=== PATIENT | female | born 1970 | race Caucasian/White ===

== ENCOUNTER 2020-02-14 08:23 | Outpatient (REF) | payer OTHER, SELFPAY ==
--- NOTE | 2020-02-14 | MM_ITS ---
EXAMINATION: MM SCREENING DIGITAL BREAST TOMOSYNTHESIS, BILATERAL CLINICAL INFORMATION: Screening. Asymptomatic. The lifetime risk of breast cancer based on the Tyrer-Cuzick Model is 11%. COMPARISON: Mammography: 12/13/2017, 12/06/2016 TECHNIQUE: Digital breast tomosynthesis is performed in both the craniocaudal and mediolateral oblique views along with computer-aided detection (CAD). Synthesized 2D images are generated from the tomosynthesis. FINDINGS: There are scattered areas of fibroglandular density (ACR BI-RADS breast composition Category b). There are no significant masses, abnormal calcifications, or other abnormalities. There is no interval mass or architectural abnormality or developing density. The axilla and skin contours are unremarkable. No abnormal calcifications on the right. The left breast has some new calcifications mid upper outer quadrant mid depth. Patient will be recalled to further characterize. IMPRESSION: 1. Left: New calcifications mid upper outer left breast. 2. Right: No mammographic evidence of malignancy. ASSESSMENT: BI-RADS 0: Incomplete - Need Additional Imaging Evaluation RECOMMENDATION: 1. Additional views of the left breast (magnification CC, magnification ML). 2. Radiology department staff will contact the patient for additional imaging. This patient's information was entered into a reminder system with a target due date for their next mammogram.
== END 2020-02-14 08:24 | disposition home or self-care (01) ==
LOC: HO.MAMMO 08:23
PROVIDERS: PCP Internal Medicine Medical Oncology; Visit Provider Internal Medicine Medical Oncology
DX: Z12.31 Encounter for screening mammogram for malignant neoplasm of breast (principal)
CPT/HCPCS: 77063; 77067; 78014

== ENCOUNTER 2020-02-24 12:53 | Outpatient (REF) | payer OTHER, SELFPAY ==
--- NOTE | 2020-02-24 | MM_ITS ---
EXAMINATION: MM DIAGNOSTIC DIGITAL MAMMOGRAPHY, LEFT CLINICAL INFORMATION: Recall from screening for new calcifications mid upper left breast. COMPARISON: Mammography: 02/14/2020, 12/13/2017 TECHNIQUE: Digital mammography is performed in the following views: Magnification CC, magnification ML, magnification MLO. FINDINGS: There are scattered areas of fibroglandular density (ACR BI-RADS breast composition Category b). The magnification views show new loosely grouped calcifications 12:30 o'clock left breast mid depth representing change from prior mammography 2018. The calcifications are mildly heterogeneous, slightly vary in size. There are other benign tightly grouped hypoattenuation calcifications close to this area which are stable from prior imaging. Results are discussed with the patient at time of visit. The calcifications are at the threshold for consideration of stereotactic sampling. Management options discussed with patient. Patient prefers stereotactic sampling. IMPRESSION: Mildly heterogeneous calcifications mid 12:30 o'clock left breast new from prior imaging 2018. ASSESSMENT: BI-RADS 4: Suspicious (subcategory 4A: Low suspicion for malignancy) RECOMMENDATION: Stereotactic sampling left breast calcifications. This patient's information was entered into a reminder system with a target due date for their next mammogram.
--- NOTE | 2020-02-27 09:06 | MM_ITS ---
EXAMINATION: STEREOTACTIC TOMOSYNTHESIS-GUIDED VACUUM-ASSISTED BREAST BIOPSY, LEFT SPECIMEN RADIOGRAPH, STEREOTACTIC POST PROCEDURE DIGITAL MAMMOGRAM, LEFT CLINICAL INFORMATION: Indeterminate grouping of calcifications superior aspect of the left breast. COMPARISON: February 24, 2020 and studies dating back to February 08, 2010. TECHNIQUE/PROCEDURE: Informed consent was obtained from the patient after discussion of the benefits, risks, and alternatives to biopsy today. Patient appeared to understand. Gave opportunity for questions. Patient signed consent form. BIOPSY TABLE: [email or web address] Affirm Prone Biopsy System. LESION: Calcifications. LOCAL ANESTHESIA: 10 mL 1% lidocaine; 20 mL 1% lidocaine with epinephrine. DERMATOTOMY: Single skin fernando dermatotomy performed. NEEDLE: Chromatin Eviva 9-gauge vacuum assisted core biopsy device. APPROACH: Superior. CORES: 20. CLIP: Top Hat. SPECIMEN RADIOGRAPH: Specimen radiograph is taken in separate room using digital mammography. The index calcifications are in the excised cores. POST PROCEDURE UNILATERAL DIGITAL MAMMOGRAM: The post biopsy mammogram is performed in separate room using separate digital mammography equipment from the biopsy procedure. 2 views are obtained. There are scattered areas of fibroglandular density (breast composition category: b). The clip marker is in position. The calcifications are markedly decreased at the biopsy site. There is a small hematoma. The patient tolerated the procedure well. No immediate complications. Home instructions reviewed with the patient. Final pathology results are pending. IMPRESSION: 1. Digital tomosynthesis-guided core biopsy left breast with clip placement. 2. Specimen radiograph taken and post procedure mammogram. There is satisfactory positioning of the biopsy clip. 3. Final pathology results pending. An addendum report will be issued.
== END 2020-02-24 12:54 | disposition home or self-care (01) ==
LOC: HO.MAMMO 12:53
PROVIDERS: Visit Provider Internal Medicine Medical Oncology
DX: R92.1 Mammographic calcification found on diagnostic imaging of breast (principal)
CPT/HCPCS: 77065

== ENCOUNTER 2020-02-27 09:01 | Outpatient (REF) | payer SELFPAY | END 2020-02-27 09:02 | disposition home or self-care (01) | LOC: HO.MAMMO 09:01 | PROVIDERS: PCP Internal Medicine Medical Oncology; Visit Provider Surgery | DX: R92.1 Mammographic calcification found on diagnostic imaging of breast (principal); Z90.710 Acquired absence of both cervix and uterus | CPT/HCPCS: 19283; 88305; 88341; 88342; 88360; 99203; A4648 ==

== ENCOUNTER → 2020-03-03 10:37 | Outpatient (BNVA) | payer OTHER, SELFPAY | PROVIDERS: PCP Internal Medicine Medical Oncology; Visit Provider Surgery | DX: C50.912 Malignant neoplasm of unspecified site of left female breast (principal); E03.9 Hypothyroidism, unspecified; Z90.710 Acquired absence of both cervix and uterus; Z13.71 Encounter for nonprocreative screening for genetic disease carrier status | CPT/HCPCS: 99213 ==

== ENCOUNTER 2020-03-18 06:58 | Day surgery (SDC) | payer OTHER, SELFPAY ==
[2020-03-12 18:10] VITALS: BMI 32.0
--- NOTE | 2020-03-17 08:36 | HO.ANESPROP2 ---
Documented by User: Emperatriz Low 03/17/20 08:37 HPI - Anesthesia Eval Consult details Narrative: 50yo F for Sentinal Node Biopsy, Needle Loc PMFSH Past Medical History Medical History Hypothyroid Invasive ductal carcinoma of left breast Family History Family History Sister History of ovarian cancer Surgical History Surgical History History of hysterectomy (~2017) Social History Social History Alcohol intake: current Alcohol intake frequency: holidays/special occasions only Smoking Status: Never smoker Second Hand Smoke Exposure: No Use of substances other than those prescribed or required for medical reasons: No Advance Directives: No Advance Directives Information Provided: No Advance Directives on File: No Recently lost weight without trying: No Meds Allergies Allergy/AdvReac Type Severity Reaction Status Date / Time No Known Allergies Allergy Verified 03/12/20 18:09 Home Medications Medication Instructions Recorded Confirmed Type levothyroxine 112 mcg tablet 112 mcg PO DAILY 02/27/20 03/12/20 History Exam Exam Date and Time: March 17, 2020 0836 Height,Weight and Vital Signs: Height 5 ft 2 in Weight 79.379 kg Assessment and Plan Assessment Anesthesia Assessment: Chart Reviewed Documented by User: Francie Oliva 03/18/20 10:58 PMFSH Past Medical History Medical History Hypothyroid Invasive ductal carcinoma of left breast Family History Family History Sister History of ovarian cancer Surgical History Surgical History History of hysterectomy (~2017) Social History Social History (Reviewed 03/18/20 @ 10:30 by Francie Waldrop Alcohol intake: current Alcohol intake frequency: holidays/special occasions only Smoking Status: Never smoker Second Hand Smoke Exposure: No Use of substances other than those prescribed or required for medical reasons: No Advance Directives: No Advance Directives Information Provided: No Advance Directives on File: No Recently lost weight without trying: No Meds Allergies Allergy/AdvReac Type Severity Reaction Status Date / Time No Known Allergies Allergy Verified 03/12/20 18:09 Home Medications Medication Instructions Recorded Confirmed Type levothyroxine 112 mcg tablet 112 mcg PO DAILY 02/27/20 03/12/20 History Exam Airway Mallampati Class: II TM Dist: >3cm Neck ROM: Full Assessment and Plan Assessment Anesthesia Assessment: Anesthesia Plan Discussed and Chart Reviewed Final Anesthetic Review NPO: Yes ASA Class: II Final Preanesthetic Review: No Changes in Pt Med Stat, Meds/Allgs Chart Reviewed, Consent Obtained/Reviewed and Anes Risks/Benef Reviewed Patient Risk: Low Procedure Risk: Low Assessment/Block/Sedation in SS: Assess/Block/Sedation-SS Anesthetic Plan Anesthetic Plan: GA Disposition: Standard PACU
[2020-03-18] VITALS (12 sets, daily range): BP systolic 112–145; BP diastolic 63–97; PULSE 68–84; RESP 16–18; TEMP 36.6–36.8; O2SAT 92–100
--- NOTE | 2020-03-18 | NM_ITS ---
EXAMINATION: NM LYMPHOSCINTIGRAPHY CLINICAL INFORMATION: Left breast cancer. COMPARISON: None. TECHNIQUE: Following explaining lymphoscintigraphy procedure, benefits and risk a written consent was obtained by Dr. Krueger. 4% lidocaine jelly cream was applied. The area around the left breast areola was cleaned in aseptic manner. 0.5 mCi of technetium 99m lymphoseek was divided in 4 equal doses and injected in 4 quadrants around the left breast areola. Imaging was obtained approximately 30 minutes later. Patient tolerated procedure extremely well. FINDINGS: There is isotope activity seen around the left breast areola. There are 2 focal areas of activity seen in the left axilla. NM/NM sentinel node w imaging IMPRESSION: On left breast lymphoscintigraphy, there are 2 solitary lymph node uptakes seen in the left axilla.
--- NOTE | 2020-03-18 07:13 | MM_ITS ---
EXAMINATION: MM MAMMOGRAM GUIDED NEEDLE LOCALIZATION BREAST, LEFT MM NEEDLE LOCALIZATION SPECIMEN FROM THE LEFT BREAST CLINICAL INFORMATION: Invasive ductal carcinoma COMPARISON: February 27, 2020 and February 14, 2020 TECHNIQUE NEEDLE LOC: Proper informed consent is obtained from the patient after discussion of the procedure, potential risks and complications, and alternatives including declining the procedure today. Patient was given an opportunity for questions. The patient appeared to understand. The patient consented to the procedure and signed the consent form. GUIDANCE: Digital mammography. APPROACH: Superior. TARGET: Calcification and T-shaped clip. ANESTHESIA: lidocaine 1%: 10 mL. LOCALIZATION MARKER: Mittie MammaLok. The skin is prepped and local anesthesia administered. The needle is positioned and position assessed with mammography. The wire is hooked into position. [place] needle protector placed. The patient tolerated the procedure well and had no immediate complication. Following the procedure, 4% lidocaine ointment was administered to the left areola and covered with Tegaderm in anticipation of nuclear lymphoscintigraphy injection for sentinel lymph node mapping. TECHNIQUE SPECIMEN RADIOGRAPH: Imaging of the excised specimen is performed using digital mammography in 1 view. FINDINGS SPECIMEN RADIOGRAPH: The specimen shows the needle and hookwire are delivered intact. The biopsy clip marker and index calcifications are identified in the specimen. There also appears to be a spiculated lesion associated with the calcifications included within the specimen. Results were called to Dr. Chad Salas in the operating room at the time of imaging. MM/MM needle loc LT IMPRESSION: 1. Status post left breast needle localization with wire hooked into position. 2. Post operative specimen radiograph obtained.
[2020-03-18] MEDS: Lactated Ringers 1,000 ML 100 ML IVCONT (07:36)
[2020-03-18] MEDS: ceFAZolin Sodium/Dextrose,Iso 2 GM/50 ML PIGGYBACK IV (07:36)
[2020-03-18] MEDS: Lidocaine 4 % Cream KIT 1 APPL TOPICAL (07:37)
--- NOTE | 2020-03-18 09:03 | MHC.SHP ---
Pre-Procedural Eval Section A The patient is an INPATIENT: No Changes since office visit: Yes Patient answered all questions; No Cold of Flu in the past 2 weeks, No New Medical Problems and No Changes in Medication The History & Physical has been completed within 30 days and I have reviewed it.: Yes Section B Chief Complaint: Invasive Ductal Carcinoma of left breast Allergies: Allergies Allergy/AdvReac Type Severity Reaction Status Date / Time No Known Allergies Allergy Verified 03/12/20 18:09 Plan Diagnosis/Plan: Unchanged Patient has been examined and remains a candidate for the planned procedure
--- NOTE | 2020-03-18 11:00 | P.CONAN_ITS ---
FORMERLY [facility] Past Medical History Medical History Hypothyroid Invasive ductal carcinoma of left breast Family History Family History Sister History of ovarian cancer Surgical History Surgical History History of hysterectomy (~2018) Social History Social History Alcohol intake: current Alcohol intake frequency: holidays/special occasions only Smoking Status: Never smoker Second Hand Smoke Exposure: No Use of substances other than those prescribed or required for medical reasons: No Advance Directives: No Advance Directives Information Provided: No Advance Directives on File: No Recently lost weight without trying: No Meds Allergies Allergy/AdvReac Type Severity Reaction Status Date / Time No Known Allergies Allergy Verified 03/12/20 18:09 Home Medications Medication Instructions Recorded Confirmed Type levothyroxine 112 mcg tablet 112 mcg PO DAILY 02/27/20 03/12/20 History Exam Exam Date and Time: March 18, 2020 1100 Height,Weight and Vital Signs: Height 5 ft 2 in Weight 79.379 kg Last Vital Signs Temp 98.3 F 03/18/20 07:14 Pulse 84 03/18/20 07:14 Resp 18 03/18/20 07:14 BP 145/97 H 03/18/20 07:14 Pulse Ox 98 03/18/20 07:14
--- NOTE | 2020-03-18 12:07 | PM.OP ---
Brief Operative Note Date of procedure: 03/18/20 Pre-op diagnosis: Left breast invasive ductal ca Post-op diagnosis: same Procedure: Left breast lumpectomy with needle localization, left axillary sentinel node biopsy Implants: none Surgeon: Chad Salas MD Anesthesia: GLMA Estimated blood loss (mL): 10 Pathology: other (left breast lump, sentinel node x 2, additional axillary tissue) Condition: stable Disposition: PACU
[2020-03-18] MEDS: ondansetron HCL 4 MG/2 ML VIAL IVPUSH (12:35)
--- NOTE | 2020-03-18 13:58 | P.OP_ITS ---
Operative Note Operative Note Narrative: Preoperative diagnosis: Invasive ductal carcinoma left breast postoperative diagnosis same Procedure: Left breast lumpectomy with needle localization, sentinel node biopsy right axilla Surgeon: Chad Salas MD Maintenance Superintendent: None Anesthesia: General LMA Indications for procedure: Patient is a 50-year-old female presenting with a recent mammogram which revealed abnormal cluster calcification in density in the left breast and midportion. She subsequently underwent a radiologic guided core biopsy which revealed invasive ductal carcinoma. She presents today for a left breast lumpectomy with needle localization, sentinel node excision. Operative findings: Patient was found to have the marking clip and localizing wire in the specimen as well as a spiculated mass suggestive Of the preoperative mammogram. Specimen: Left breast mass, sentinel node x2, additional axillary tissue Complications: None Estimated blood loss: 10 mL Procedure details: Patient was brought to the OR placed in supine position. After administering general anesthesia the patient's left breast and axilla were prepped ChloraPrep and draped in a sterile fashion. A surgical time-out was called and consent confirmed. Patient received preoperative antibiotics and Brian odyne boots were placed. Local anesthesia consisting of 0.75% Sensorcaine was infiltrated above the left nipple in a curvilinear fashion. Using the localizing needle as a guide a core of tissue surrounding the localizing needle was obtained. Biopsy was continued down to chest wall. Superior and inferior skin flaps were then created. The entire specimen was removed and sent to pathology for further examination. Hemostasis was assured using electrocautery. Attention was then directed to the left axilla at which point the gamma probe was used to localize the area of increased reactivity. An area in the mid axilla was identified. Incision was made at the lower portion of the axilla and carried out through subcutaneous tissue the cloudy pectoral fascia was then incised with electrocautery. An area of increased reactivity was identified and a single node with approximately 1500 counts. This was sent as sentinel node 1. A smaller node was identified a slightly medial to this with minimal radio activity and was sent as sentinel node 2. no additional radioactivity was identified. No other palpable nodes were identified. The wounds were then irrigated with saline solution and suctioned dry. Wounds were checked for hemostasis. Clavipectoral fascia was then closed using interrupted 3-0 Polysorb sutures. Dermis was reapproximated using interrupted 3 0 Polysorb sutures. S kin was closed using a subcuticular 4-0 Polysorb suture. The breast excision site was irrigated with saline solution and checked for hemostasis. Deep breast tissue was closed using interrupted 3 0 Polysorb sutures. Dermis was reapproximated using interrupted 3-0 Polysorb sutures. Skin was then closed using a running subcuticular 4 0 Polysorb suture. Steri- Strips 2 x 2 gauze and Tegaderm were then applied. The patient tolerated the procedure well. Sponge, instrument, and needle counts reported as correct. Patient was transferred to PACU in stable condition. Breast [place] Node Biopsy Substrate(s) used for sentinel node biopsy in the non-neoadjuvant setting: Radiotracer Substrate(s) used for sentinel node biopsy in the neoadjuvant setting: N/A All colored nodes or non-colored nodes present at the end of a dye filled lymphatic channel were removed, if dye was used as the substrate for localization: N/A All significantly radioactive nodes were removed, if radionuclide was used as the substrate for localization: Yes All palpably suspicious nodes were removed, if present: Yes If clips were placed in pathology-involved nodes, those nodes were identified and removed: N/A General Surg. - Synoptic Notes Breast [place] Node Biopsy Substrate(s) used for sentinel node biopsy in the non-neoadjuvant setting: Radiotracer Substrate(s) used for sentinel node biopsy in the neoadjuvant setting: N/A All colored nodes or non-colored nodes present at the end of a dye filled lymphatic channel were removed, if dye was used as the substrate for localization: N/A All significantly radioactive nodes were removed, if radionuclide was used as the substrate for localization: Yes All palpably suspicious nodes were removed, if present: Yes If clips were placed in pathology-involved nodes, those nodes were identified and removed: N/A
== END 2020-03-18 23:59 ==
PROVIDERS: PCP Internal Medicine Medical Oncology; Visit Provider Surgery
PROC: (CPT 19301; principal; 2020-03-18 10:30)
PROC: (CPT 19301; 2020-03-18 10:30)
DX: C50.912 Malignant neoplasm of unspecified site of left female breast (principal); Z17.0 Estrogen receptor positive status [ER+]; Z90.710 Acquired absence of both cervix and uterus; E03.9 Hypothyroidism, unspecified; Z79.899 Other long term (current) drug therapy
CPT/HCPCS: 19301; 38525; 19281; 78195; 88305; 88307; 88329; 88342; A4648; A9520; J0690; J1100; J2250; J2405; J3010

== ENCOUNTER → 2020-03-30 09:19 | Outpatient (BNVA) | payer OTHER, SELFPAY | PROVIDERS: PCP Internal Medicine Medical Oncology; Referring Provider Internal Medicine Medical Oncology; Visit Provider Surgery | DX: Z48.3 Aftercare following surgery for neoplasm (principal); C50.912 Malignant neoplasm of unspecified site of left female breast; Z17.0 Estrogen receptor positive status [ER+]; Z71.2 Person consulting for explanation of examination or test findings | CPT/HCPCS: 99212 ==

== ENCOUNTER → 2020-04-28 13:36 | Outpatient (BNVA) | payer OTHER, SELFPAY | PROVIDERS: PCP Internal Medicine Medical Oncology; Visit Provider Surgery | DX: C50.912 Malignant neoplasm of unspecified site of left female breast (principal) | CPT/HCPCS: 99212 ==

== ENCOUNTER 2020-08-03 07:45 | Outpatient (REF) | payer OTHER, SELFPAY ==
[2020-08-03 08:46] LABS: Hematocrit 38.3 % (37-47); Hemoglobin 13.1 g/dl (12.0-16.0); Mean Corpuscular HGB Conc 34.2 g/dl (31.0-35.0); Mean Corpuscular Hemoglobin 30.3 pg (27.0-33.0); Mean Corpuscular Volume 88.5 fL (80-98); Mean Platelet Volume 9.7 fL (9.4-12.3); Platelet Count 249 X10*3/uL (160-400); Red Blood Count 4.33 X10*6/uL (4.20-5.50); Red Cell Distribution Width 13.2 % (11.0-16.0); White Blood Count 7.8 X10*3/uL (4.8-10.8)
[2020-08-03 09:21] LABS: Alanine Aminotransferase 67 U/L (0-31); Alkaline Phosphatase 159 U/L (39-117); Anion Gap 13 (12-20); Aspartate Amino Transferase 37 U/L (5-31); Blood Urea Nitrogen 8 mg/dL (9-16); Calcium 9.3 mg/dL (8.4-10.2); Carbon Dioxide 28 mmol/L (22-29); Chloride 107 mmol/L (96-108); Cholesterol 220 mg/dL; Estimated Glomerular Filt Rate > 60; Glucose Fasting 101 mg/dL (60-99); HDL Cholesterol 37 mg/dL; LDL Cholesterol Calculated 148 mg/dl; Potassium 4.8 mmol/L (3.3-5.1); Sodium 143 mmol/L (135-145); Total Protein 6.8 g/dL (6.5-8.0); Triglycerides 176 mg/dL
[2020-08-03 09:44] LABS: Free T4 (Free Thyroxine) 1.11 ng/dL (0.71-1.85); Thyroid Stimulating Hormone 0.77 uIU/mL (0.32-4.0)
[2020-08-03 10:58] LABS: Atypical Lymph Absolute Manual 0.3 x10*3/uL; Atypical Lymphs Percent Manual 4 % (0-6); Band Neutrophils Percent 2 % (3-5); Basophils Abs Manual 0.5 X10*3/uL (0.0-0.3); Basophils Percent Manual 6 % (0-1); Eosinophils Absolute Manual 0.3 X10*3/UL (0.0-0.8); Eosinophils Percent Manual 4 % (0-4); Lymphocytes Absolute Manual 2.5 X10*3/uL (0.6-4.8); Lymphocytes Percent Manual 32 % (20-40); Monocytes Absolute Manual 0.9 X10*3/uL (0.0-1.2); Monocytes Percent Manual 11 % (2-11); Neutrophils Absolute Manual 3.4 X10*3/uL (2.2-7.9); Neutrophils Percent Manual 41 % (45-73)
[2020-08-03 11:01] LABS: Platelet Estimate NORMAL (NORMAL); Platelet Morphology Comment NORMAL; RBC Morphology NORMAL
== END 2020-08-03 07:46 | disposition home or self-care (01) ==
LOC: HO.LAB 07:45
PROVIDERS: PCP Internal Medicine Medical Oncology; Visit Provider Internal Medicine Medical Oncology
DX: I10 Essential (primary) hypertension (principal); E78.5 Hyperlipidemia, unspecified; E66.9 Obesity, unspecified
CPT/HCPCS: 36415; 80053; 80061; 84439; 84443; 85007; 85027

== ENCOUNTER 2020-11-30 07:44 | Outpatient (REF) | payer OTHER, SELFPAY ==
[2020-11-30 10:16] LABS: MANUAL DIFF FLAG NO
[2020-11-30 10:22] LABS: Basophils Absolute Auto 0.1 X10*3/uL (0.0-0.2); Basophils Percent Auto 1.2 % (0-2); Eosinophils Absolute Auto 0.7 X10*3/uL (0.0-0.4); Hematocrit 43.8 % (37-47); Hemoglobin 14.9 g/dl (12.0-16.0); Imm Gran Abs Auto 0.03 X10*3/uL (0.00-0.03); Imm Gran Pct Auto 0.5 % (0.0-0.4); Lymphocytes Absolute Auto 1.1 X10*3/uL (1.2-4.9); Lymphocytes Percent Auto 18.5 % (20-40); Mean Corpuscular Hemoglobin 28.7 pg (27.0-33.0); Mean Corpuscular Volume 84.4 fL (80-98); Mean Platelet Volume 10.2 fL (9.4-12.3); Monocytes Absolute Auto 0.6 X10*3/uL (0.1-1.2); Monocytes Percent Auto 10.5 % (2-11); Neutrophils Absolute Auto 3.5 X10*3/uL (2.0-8.3); Neutrophils Percent Auto 58.3 % (45-73); Platelet Count 246 X10*3/uL (160-400); Red Blood Count 5.19 X10*6/uL (4.20-5.50); Red Cell Distribution Width 12.6 % (11.0-16.0)
[2020-11-30 10:37] LABS: Alanine Aminotransferase 31 U/L (0-31); Albumin Level 4.1 g/dL (3.5-5.0); Alkaline Phosphatase 86 U/L (39-117); Anion Gap 13 (12-20); Aspartate Amino Transferase 28 U/L (5-31); Bilirubin Total 0.9 mg/dL (0.0-1.0); Blood Urea Nitrogen 15 mg/dL (9-16); Calcium 9.7 mg/dL (8.4-10.2); Carbon Dioxide 27 mmol/L (22-29); Chloride 106 mmol/L (96-108); Cholesterol 204 mg/dL; Estimated Glomerular Filt Rate > 60; Glucose Random 110 mg/dL (60-115); HDL Cholesterol 51 mg/dL; LDL Cholesterol Calculated 120 mg/dl; Sodium 141 mmol/L (135-145); Total Protein 7.1 g/dL (6.5-8.0); Triglycerides 168 mg/dL
== END 2020-11-30 07:45 | disposition home or self-care (01) ==
LOC: HO.10HDL 07:44
PROVIDERS: Visit Provider Internal Medicine Medical Oncology
DX: E78.5 Hyperlipidemia, unspecified (principal); D64.9 Anemia, unspecified; I10 Essential (primary) hypertension
CPT/HCPCS: 36415; 80053; 80061; 85025

== ENCOUNTER 2021-05-11 12:57 | Outpatient (REF) | payer OTHER, SELFPAY ==
--- NOTE | ~2021-05-11 | MM_ITS ---
EXAMINATION: MM DIAGNOSTIC DIGITAL BREAST TOMOSYNTHESIS, BILATERAL CLINICAL INFORMATION: Left lumpectomy 03/18/2024 invasive ductal cancer. Due for yearly. COMPARISON: Mammography: 03/18/2020, 02/27/2020, 02/24/2020, 02/14/2020, 12/13/2017, 12/06/2016 TECHNIQUE: Digital breast tomosynthesis is performed in both the craniocaudal and mediolateral oblique views along with computer-aided detection (CAD). Synthesized 2D images are generated from the tomosynthesis. Additional magnification left CC, magnification left ML, and standard left exaggerated CC views are obtained. Scar marker utilized. FINDINGS: There are scattered areas of fibroglandular density (ACR BI-RADS breast composition Category b). There are post therapy changes on the left with expected scarring and smooth skin thickening. The right breast shows no significant changes from prior studies. There is no interval mass or architectural abnormality or abnormal calcifications. No significant changes. Results are provided to the patient at time of visit by the technologist. MM/MM tomosynthesis diagnostic BI IMPRESSION: No mammographic evidence of malignancy. Post therapy changes left breast. ASSESSMENT: BI-RADS 2: Benign RECOMMENDATION: Annual bilateral mammography. This patient's information was entered into a reminder system with a target due date for their next mammogram.
== END 2021-05-11 12:58 | disposition home or self-care (01) ==
LOC: HO.MAMMO 12:57
PROVIDERS: Visit Provider Internal Medicine
DX: R92.2 Inconclusive mammogram (principal); Z85.3 Personal history of malignant neoplasm of breast
CPT/HCPCS: 77062; 77066

== ENCOUNTER 2021-09-08 12:27 | Outpatient (REF) | payer BC, SELFPAY ==
[2021-09-08 12:48] LABS: MANUAL DIFF FLAG NO
[2021-09-08 13:12] LABS: Basophils Absolute Auto 0.1 X10*3/uL (0.0-0.2); Basophils Percent Auto 1.2 % (0-2); Eosinophils Absolute Auto 0.7 X10*3/uL (0.0-0.4); Eosinophils Percent Auto 9.7 % (0-4); Hematocrit 44.6 % (37.0-47.0); Hemoglobin 15.3 g/dl (12.0-16.0); Imm Gran Abs Auto 0.03 X10*3/uL (0.00-0.03); Imm Gran Pct Auto 0.4 % (0.0-0.4); Lymphocytes Absolute Auto 1.7 X10*3/uL (1.2-4.9); Lymphocytes Percent Auto 22.3 % (20-40); Mean Corpuscular HGB Conc 34.3 g/dl (31.0-35.0); Mean Corpuscular Hemoglobin 29.7 pg (27.0-33.0); Mean Corpuscular Volume 86.6 fL (80.0-98.0); Mean Platelet Volume 9.4 fL (9.4-12.3); Monocytes Absolute Auto 0.7 X10*3/uL (0.1-1.2); Monocytes Percent Auto 9.7 % (2-11); Neutrophils Absolute Auto 4.3 x10*3/uL (2.0-8.3); Neutrophils Percent Auto 56.7 % (45-73); Platelet Count 235 X10*3/uL (160-400); Red Blood Count 5.15 X10*6/uL (4.20-5.50); Red Cell Distribution Width 11.7 % (11.0-16.0); White Blood Count 7.5 X10*3/uL (4.8-10.8)
[2021-09-08 13:29] LABS: Alanine Aminotransferase 51 U/L (0-31); Albumin Level 4.3 g/dL (3.5-5.0); Alkaline Phosphatase 93 U/L (39-117); Anion Gap 12 (12-20); Aspartate Amino Transferase 37 U/L (5-31); Bilirubin Total 0.8 mg/dL (0.0-1.0); Blood Urea Nitrogen 13 mg/dL (9-16); Carbon Dioxide 28 mmol/L (22-29); Chloride 105 mmol/L (96-108); Cholesterol 241 mg/dL; Estimated Glomerular Filt Rate > 60; Glucose Fasting 93 mg/dL (60-99); HDL Cholesterol 54 mg/dL; LDL Cholesterol Calculated 149 mg/dl; Potassium 4.7 mmol/L (3.3-5.1); Sodium 140 mmol/L (135-145); Total Protein 7.5 g/dL (6.5-8.0); Triglycerides 193 mg/dL
== END 2021-09-08 12:28 | disposition home or self-care (01) ==
LOC: HO.LAB 12:27
PROVIDERS: PCP Internal Medicine Medical Oncology; Visit Provider Internal Medicine Medical Oncology
DX: E03.9 Hypothyroidism, unspecified (principal); E78.5 Hyperlipidemia, unspecified; D64.9 Anemia, unspecified
CPT/HCPCS: 36415; 80053; 80061; 85025

== ENCOUNTER 2021-09-13 08:04 | Outpatient (REF) | payer BC, SELFPAY ==
--- NOTE | ~2021-09-13 | MM_ITS ---
EXAMINATION: BONE DENSITOMETRY CLINICAL INDICATION: Breast cancer. COMPARISON: None (current study represents initial baseline exam). TECHNIQUE: Using a [employer] CV DXA System (software version: 13.1) manufactured by [employer], dual-energy x-ray absorptiometry was performed of the lumbar spine and left hip. The images are of good technical quality. Summary results are attached. FINDINGS: AP SPINE L1-L4: BMD 1.283 g/cm2, Z-score 0.8, T-score 0.9, normal. LEFT FEMUR, NECK: BMD 0.964 g/cm2, Z-score -0.1, T-score -0.5, normal. LEFT FEMUR, TOTAL: BMD 1.098 g/cm2, Z-score 0.8, T-score 0.7, normal. IDENTIFIED RISK FACTORS: Low calcium intake. Early menopause, secondary osteoporosis, hysterectomy. HISTORY OF FRACTURE: None listed. MEDICATIONS: Calcium supplements or multivitamin, vitamin D. MM/XR DEXA axial skeleton IMPRESSION: 1. DIAGNOSIS: Normal bone density based on the lowest T-score value of -0.5 in the femoral neck applying World Health Organization criteria. 2. 10 10-YEAR FRACTURE RISK PREDICTION, FRAX: According to the guidelines, FRAX calculation should only be performed on patients in the osteopenia bone density category. Therefore, FRAX was not performed on this patient. 3. Treatment Recommendations: NOF guidelines recommend consideration for treatment in postmenopausal women and men age 50 and older presenting with the following: -A hip or vertebral (clinical or morphometric) fracture. -T-score less than or equal to -2.5 at the femoral neck or spine after appropriate evaluation to exclude secondary causes. -Low bone mass at the hip or spine and a 10-year fracture probability by FRAX of greater than or equal to 3% for hip fracture or greater than or equal to 20% for major osteoporotic fracture based on the [place] adapted WHO algorithm. 4. Other Recommendations: All treatment decisions require clinical judgment and consideration of individual patient factors, including patient preferences, comorbidities, previous drug use, risk factors not captured in the FRAX model (e.g. frailty, falls, vitamin D deficiency, increased bone turnover, interval significant decline in bone density) and possible under or overestimation of fracture risk by FRAX. FUTURE SCAN RECOMMENDATION: People with diagnosed cases of osteoporosis or at high risk for fracture should have regular bone mineral density tests. For patients eligible for Medicare, routine testing is allowed once every 2 years. The testing frequency can be increased to one year for patients who have rapidly progressing disease, those who are receiving or discontinuing medical therapy to restore bone mass, or have additional risk factors.
== END 2021-09-13 08:05 | disposition home or self-care (01) ==
LOC: HO.MAMMO 08:04
PROVIDERS: PCP Internal Medicine Medical Oncology; Visit Provider Internal Medicine
DX: Z13.820 Encounter for screening for osteoporosis (principal); Z78.0 Asymptomatic menopausal state; Z85.3 Personal history of malignant neoplasm of breast
CPT/HCPCS: 77080

== ENCOUNTER 2022-05-16 12:20 | Outpatient (REF) | payer BC, SELFPAY ==
--- NOTE | ~2022-05-16 | MM_ITS ---
EXAMINATION: MM DIAGNOSTIC DIGITAL BREAST TOMOSYNTHESIS, BILATERAL CLINICAL INFORMATION: Due for yearly. Left lumpectomy for IDC, 03/18/2020. COMPARISON: Mammography: 05/11/2021, 03/18/2020, 02/27/2020, 02/24/2020, 02/14/2020, 12/13/2017 TECHNIQUE: Digital breast tomosynthesis is performed in both the craniocaudal and mediolateral oblique views along with computer-aided detection (CAD). Synthesized 2D images are generated from the tomosynthesis. Additional magnification left CC and magnification left ML views are obtained. FINDINGS: There are scattered areas of fibroglandular density (ACR BI-RADS breast composition Category b). Post therapy changes left breast are similar to prior exam. Neither breast shows significant mass or interval architectural abnormality or abnormal calcifications. The axilla and skin contours are unremarkable. No significant changes. Results are provided to the patient at time of visit by the technologist. MM/MM tomosynthesis diagnostic BI IMPRESSION: -No mammographic evidence of malignancy. -Post therapy changes left breast. ASSESSMENT: BI-RADS 2: Benign RECOMMENDATION: Annual bilateral mammography. This patient's information was entered into a reminder system with a target due date for their next mammogram.
== END 2022-05-16 12:21 | disposition home or self-care (01) ==
LOC: HO.MAMMO 12:20
PROVIDERS: Visit Provider Internal Medicine
DX: C50.919 Malignant neoplasm of unspecified site of unspecified female breast (principal); Z98.890 Other specified postprocedural states
CPT/HCPCS: 77062; 77066

== ENCOUNTER 2022-12-22 07:41 | Outpatient (REF) | payer BC, SELFPAY ==
[2022-12-22 07:56] LABS: MANUAL DIFF FLAG NO
[2022-12-22 08:14] LABS: Basophils Absolute Auto 0.1 X10*3/uL (0.0-0.2); Basophils Percent Auto 1.5 % (0-2); Eosinophils Absolute Auto 0.6 X10*3/uL (0.0-0.4); Eosinophils Percent Auto 10.5 % (0-4); Hematocrit 42.5 % (37.0-47.0); Hemoglobin 14.8 g/dl (12.0-16.0); Imm Gran Abs Auto 0.03 X10*3/uL (0.00-0.03); Imm Gran Pct Auto 0.5 % (0.0-0.4); Lymphocytes Absolute Auto 1.4 X10*3/uL (1.2-4.9); Lymphocytes Percent Auto 23.4 % (20-40); Mean Corpuscular HGB Conc 34.8 g/dl (31.0-35.0); Mean Corpuscular Hemoglobin 30.3 pg (27.0-33.0); Mean Corpuscular Volume 87.1 fL (80.0-98.0); Mean Platelet Volume 9.5 fL (9.4-12.3); Monocytes Absolute Auto 0.6 X10*3/uL (0.1-1.2); Monocytes Percent Auto 9.5 % (2-11); Neutrophils Absolute Auto 3.3 x10*3/uL (2.0-8.3); Neutrophils Percent Auto 54.6 % (45-73); Platelet Count 235 X10*3/uL (160-400); Red Blood Count 4.88 X10*6/uL (4.20-5.50); Red Cell Distribution Width 11.9 % (11.0-16.0)
[2022-12-22 08:49] LABS: Alanine Aminotransferase 39 U/L (0-31); Albumin Level 4.2 g/dL (3.5-5.0); Alkaline Phosphatase 108 U/L (39-117); Anion Gap 15 (12-20); Aspartate Amino Transferase 25 U/L (5-31); Bilirubin Total 0.9 mg/dL (0.0-1.0); Blood Urea Nitrogen 13 mg/dL (9-16); Calcium 9.9 mg/dL (8.4-10.2); Carbon Dioxide 24 mmol/L (22-29); Chloride 108 mmol/L (96-108); Cholesterol 270 mg/dL; Estimated Glomerular Filt Rate > 60; Glucose Fasting 107 mg/dL (60-99); HDL Cholesterol 55 mg/dL; LDL Cholesterol Calculated 192 mg/dl; Potassium 4.1 mmol/L (3.3-5.1); Sodium 143 mmol/L (135-145); Total Protein 7.4 g/dL (6.5-8.0); Triglycerides 118 mg/dL
[2022-12-22 09:07] LABS: Free T4 (Free Thyroxine) 1.23 ng/dL (0.71-1.85); Thyroid Stimulating Hormone 0.62 uIU/mL (0.32-4.0)
== END 2022-12-22 07:42 | disposition home or self-care (01) ==
LOC: HO.LAB 07:41
PROVIDERS: PCP Internal Medicine Medical Oncology; Visit Provider Internal Medicine Medical Oncology
DX: E03.9 Hypothyroidism, unspecified (principal); I10 Essential (primary) hypertension; E78.5 Hyperlipidemia, unspecified; D64.9 Anemia, unspecified
CPT/HCPCS: 36415; 80053; 80061; 84439; 84443; 85025

== ENCOUNTER 2023-05-21 14:47 | Outpatient (REF) | payer BC, SELFPAY ==
--- NOTE | ~2023-05-21 | MM_ITS ---
EXAMINATION: MM DIAGNOSTIC DIGITAL BREAST TOMOSYNTHESIS, BILATERAL CLINICAL INFORMATION: Postop left lumpectomy year 3 upper outer quadrant for invasive ductal carcinoma status post breast conservation therapy. Patient also due for bilateral screening. COMPARISON: Mammography: 05/16/2022, 05/11/2021, 02/27/2020, 02/14/2020, and dating back to 2014. TECHNIQUE: Digital breast tomosynthesis is performed in both the craniocaudal and mediolateral oblique views along with computer-aided detection (CAD). Synthesized 2D images are generated from the tomosynthesis. In addition, 2-D spot magnification views of the left breast were obtained in the CC and ML projections. FINDINGS: There are scattered areas of fibroglandular density (ACR BI-RADS breast composition Category b). There are similar postoperative changes in the left breast with mild trabecular thickening, scarring in the upper slightly outer aspect mid one third, and mild diffuse skin thickening. There are mildly increasing rounded calcifications in the biopsy scar, some with lucent centers highly suggestive of benign/dystrophic etiology. These are probably benign but given slight increase in number since 05/16/2022, six-month follow-up left diagnostic mammography to include standard magnification views recommended. Otherwise, no convincing evidence of disease recurrence is present. No axillary abnormalities. Right breast demonstrates no evidence of suspicious mass, suspicious calcifications, or areas of architectural distortion. MM/MM tomosynthesis diagnostic BI IMPRESSION: No definite evidence of malignancy in either breast. Minimally increasing probably dystrophic calcifications in the LEFT breast lumpectomy scar, probably benign, but given patient's history, six-month interval follow-up recommended to include standard diagnostic magnification views of the lumpectomy scar. Otherwise, stable postop findings LEFT breast. No suspicious findings in the RIGHT breast. ASSESSMENT: BI-RADS BI-RADS 3 - Probably benign finding(s) - 6 month follow-up suggested RECOMMENDATION: 6 Month F/U This patient's information was entered into a reminder system with a target due date for their next mammogram.
== END 2023-05-21 14:48 | disposition home or self-care (01) ==
LOC: HO.MAMMO 14:47
PROVIDERS: Absent Provider Internal Medicine; PCP Internal Medicine Medical Oncology; Visit Provider Internal Medicine Medical Oncology
DX: Z85.3 Personal history of malignant neoplasm of breast (principal)
CPT/HCPCS: 77062; 77066

== ENCOUNTER → 2023-05-21 15:00 | Outpatient (BNV) | payer BC, SELFPAY | PROVIDERS: Absent Provider Internal Medicine; PCP Internal Medicine Medical Oncology; Visit Provider Radiology Diagnostic Radiology | DX: R92.1 Mammographic calcification found on diagnostic imaging of breast (principal) | CPT/HCPCS: 77062; 77066 ==

== ENCOUNTER 2023-11-20 11:23 | Outpatient (REF) | payer BC, SELFPAY ==
--- NOTE | ~2023-11-20 | MM_ITS ---
EXAMINATION: MM DIAGNOSTIC DIGITAL BREAST TOMOSYNTHESIS, LEFT CLINICAL INFORMATION: 6 month Follow-up calcifications in left breast lumpectomy scar upper slightly outer quadrant, middle one third. 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 COMPARISON: Mammography: 05/21/2023, 05/16/2022, 05/11/2021, 02/27/2020, 02/14/2020, and dating back to 2014. TECHNIQUE: Digital left breast tomosynthesis is performed in both the craniocaudal and mediolateral oblique views along with computer-aided detection (CAD). Synthesized 2D images are generated from the tomosynthesis. In addition, 2-D spot magnification left CC and ML views were obtained. FINDINGS: There are scattered areas of fibroglandular density (ACR BI-RADS breast composition Category b). There are similar postoperative changes in the left breast with mild trabecular thickening, scarring in the upper slightly outer aspect mid one third, and mild diffuse skin thickening. There are mildly increasing rounded calcifications in the biopsy scar, some with lucent centers essentially unchanged from the prior examination. These calcifications appear benign and stable, with no definite aggressive changes. No further follow-up suggested. Mild left skin thickening and mild trabecular thickening again noted, consistent with similar post therapeutic changes. No left axillary abnormality or adenopathy. No new suspicious left breast abnormality. MM/MM tomosynthesis diagnostic LT IMPRESSION: -There are no findings left breast suspicious for malignancy. -There are benign type calcifications in the lumpectomy bed, unchanged and consistent with dystrophic etiology. -Recommend this patient return to routine annual bilateral screening in 6 months. ASSESSMENT: BI-RADS BI-RADS 2 - Benign Findings RECOMMENDATION: 1 year F/U Results were provided to the patient at time of visit by the technologist. This patient's information was entered into a reminder system with a target due date for their next mammogram.
== END 2023-11-20 11:24 | disposition home or self-care (01) ==
LOC: HO.MAMMO 11:23
PROVIDERS: PCP Internal Medicine Medical Oncology; Visit Provider Internal Medicine Medical Oncology
DX: Z85.3 Personal history of malignant neoplasm of breast (principal)
CPT/HCPCS: 77061; 77065

== ENCOUNTER → 2023-11-20 11:28 | Outpatient (BNV) | payer BC, SELFPAY | PROVIDERS: PCP Internal Medicine Medical Oncology; Visit Provider Radiology Diagnostic Radiology | DX: R92.1 Mammographic calcification found on diagnostic imaging of breast (principal) | CPT/HCPCS: 77061; 77065 ==

== ENCOUNTER 2023-12-21 06:12 | Outpatient (REF) | payer BC, SELFPAY ==
[2023-12-21 06:24] LABS: MANUAL DIFF FLAG NO
[2023-12-21 07:11] LABS: Basophils Absolute Auto 0.1 X10*3/uL (0.0-0.2); Eosinophils Absolute Auto 0.5 X10*3/uL (0.0-0.4); Eosinophils Percent Auto 8.9 % (0-4); Hematocrit 46.6 % (37.0-47.0); Hemoglobin 16.1 g/dl (12.0-16.0); Imm Gran Abs Auto 0.02 X10*3/uL (0.00-0.03); Imm Gran Pct Auto 0.3 % (0.0-0.4); Lymphocytes Percent Auto 32.9 % (20-40); Mean Corpuscular HGB Conc 34.5 g/dl (31.0-35.0); Mean Corpuscular Hemoglobin 29.6 pg (27.0-33.0); Mean Corpuscular Volume 85.7 fL (80.0-98.0); Mean Platelet Volume 9.8 fL (9.4-12.3); Monocytes Absolute Auto 0.5 X10*3/uL (0.1-1.2); Monocytes Percent Auto 8.9 % (2-11); Neutrophils Absolute Auto 2.8 x10*3/uL (2.0-8.3); Platelet Count 257 X10*3/uL (160-400); Red Blood Count 5.44 X10*6/uL (4.20-5.50); Red Cell Distribution Width 13.2 % (11.0-16.0); White Blood Count 5.9 X10*3/uL (4.8-10.8)
[2023-12-21 07:47] LABS: Alanine Aminotransferase 40 U/L (0-31); Albumin Level 4.6 g/dL (3.5-5.0); Alkaline Phosphatase 138 U/L (39-117); Anion Gap 14 (12-20); Aspartate Amino Transferase 45 U/L (5-31); Bilirubin Total 1.1 mg/dL (0.0-1.0); Blood Urea Nitrogen 10 mg/dL (9-16); Calcium 10.2 mg/dL (8.4-10.2); Carbon Dioxide 27 mmol/L (22-29); Chloride 105 mmol/L (96-108); Cholesterol 367 mg/dL (<200); Estimated Glomerular Filt Rate 59; Glucose Fasting 100 mg/dL (60-99); HDL Cholesterol 71 mg/dL (>40); LDL Cholesterol Calculated 269 mg/dL (<100); Potassium 4.5 mmol/L (3.3-5.1); Sodium 141 mmol/L (135-145); Total Protein 7.8 g/dL (6.5-8.0); Triglycerides 135 mg/dL (<150)
[2023-12-21 08:23] LABS: Free T4 (Free Thyroxine) 0.61 ng/dL (0.71-1.85); Thyroid Stimulating Hormone > 100.00 uIU/mL (0.32-4.0)
== END 2023-12-21 06:13 | disposition home or self-care (01) ==
LOC: HO.LAB 06:12
PROVIDERS: PCP Internal Medicine Medical Oncology; Visit Provider Internal Medicine Medical Oncology
DX: E03.9 Hypothyroidism, unspecified (principal); E78.5 Hyperlipidemia, unspecified; D64.9 Anemia, unspecified; I10 Essential (primary) hypertension
CPT/HCPCS: 36415; 80053; 80061; 84439; 84443; 85025

== ENCOUNTER 2024-06-30 07:40 | Outpatient (REF) | payer OTHER, SELFPAY ==
--- OUTSIDE RECORDS SUMMARY | 2024-06-30 07:44 | XMS_ITS | Patient Health Record ---
Author Organization Clem Ahn III, MD Address [address] [place] [address] Care Team Providers Care Paper Cutting Machine Operator Name Role Phone Clem Ahn Primary Care Provider Allergies Allergen (clinical drug ingredient) Drug/Non Drug Allergy documented on EMR Reaction Allergy Type Onset Date Status No Known Drug Allergy Unknown Drug Allergy Active Results Component Value Reference Range Notes MM tomosynthesis diagnostic LT Reviewed date:11/20/2023 04:04:45 PM Interpretation: Performing Lab: Notes/Report: [address] [place] [address] Mammography Report Signed Patient: Kristen Hassan MR#: [id number] 483 : 1970 Acct:[id number] Age/Sex: 53 / F ADM Date: 11/20/23 Loc: HO.MAMMO Attending Dr: Clem Ahn MD Ordering Physician: Clem Ahn MD Results: 2Benign Findings Date of Service: 11/20/23 Follow Up: 1 Year From Orig ina Mammogram Procedure(s): MM tomosynthesis diagnostic LT Accession Number(s): [id number] cc: Clem Ahn MD EXAMINATION: MM DIAGNOSTIC DIGITAL BREAST TOMOSYNTHESIS, LEFT CLINICAL INFORMATION: 6 month Follow-up calcifications in left breast lumpectomy scar upper slightly outer quadrant, middle one third. 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 COMPARISON: Mammography: 05/21/2023, 05/16/2022, 05/11/2021, 02/27/2020, 02/14/2020, and dating back to 2014. TECHNIQUE: Digital left breast tomosynthesis is performed in both the craniocaudal and mediolateral oblique views along with computer-aided detection (CAD). Synthesized 2D images are generated from the tomosynthesis. In addition, 2-D spot magnification left CC and ML views were obtained. FINDINGS: There are scattered areas of fibroglandular density (ACR BI-RADS breast composition Category b). There are similar postoperative changes in the left breast with mild trabecular thickening, scarring in the upper slightly outer aspect mid one third, and mild diffuse skin thickening. There are mildly increasing rounded calcifications in the biopsy scar, some with lucent centers essentially unchanged from the prior examination. These calcifications appear benign and stable, with no definite aggressive changes. No further follow-up suggested. Mild left skin thickening and mild trabecular thickening again noted, consistent with similar post therapeutic changes. No left axillary abnormality or adenopathy. No new suspicious left breast abnormality. MM/MM tomosynthesis diagnostic LT IMPRESSION: -There are no findings left breast suspicious for malignancy. -There are benign type calcifications in the lumpectomy bed, unchanged and consistent with dystrophic etiology. -Recommend this patient return to routine annual bilateral screening in 6 months. ASSESSMENT: BI-RADS BI-RADS 2 - Benign Findings RECOMMENDATION: 1 year F/U Results were provided to the patient at time of visit by the technologist. This patient's information was entered into a reminder system with a target due date for their next mammogram. Dictated By: Chalino Newman MD Signed By: <Electronically signed by Chalino Newman MD in OV> 11/20/23 1242 DD/ 1150 TD/TT: [employer] Designer: [facility] [address] [place] [address] [place] [address] Mammography Report Signed Patient: Doris Hassan MR#: [id number] 483 : 1970 Acct:[id number] Age/Sex: 53 / F ADM Date: 11/20/23 Loc: HO.MAMMO Attending Dr: Clem Ahn MD Ordering Physician: Clem Ahn MD Results: 2Benign Findings Date of Service: 11/20/23 Follow Up: 1 Year From Orig inal Mammogram Procedure(s): MM tomosynthesis diagnostic LT Accession Number(s): [id number] cc: Clem Ahn MD EXAMINATION: MM DIAGNOSTIC RIANAA L BREAST TOMOSYNTHESIS, LEFT CLINICAL INFORMATION: 6 month Follow-up calcifications in left breast lumpectomy scar upper slightly outer quadrant, middle one third. 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 COMPARISON: Mammography: 05/21/2023, 05/16/2022, 05/11/2021, 02/27/2020, 02/14/2020, and dati ng back to 2014. TECHNIQUE: Digital left breast tomosynthesis is performed in both the craniocaudal and mediolateral oblique views along with computer-aided detection (CAD). Synthesized 2 D images are generated from the tomosynthesis. In addition, 2-D spot magnification left CC and ML views were obtained. FINDINGS: There are scattered areas of fibroglandular density (ACR BI-RADS breast composition Category b). There are similar postoperative changes in the left breast with mild trabecular thickenin g, scarring in the upper slightly outer aspect mid one third, and mild diffuse skin thickening. There are mildly increasing rounded calcifications in the biopsy scar, some with lucent centers essentially unchanged from the prior examination. These calcifications appea r benign and stable, with no definite aggressive changes. No further follow-up suggested. Mild left skin thickening and mild trabecular thickening again noted, consistent with tatianna lar post therapeutic changes. No left axillary abnormality or adenopathy. No new suspicious left breast abnormality. MM/MM tomosynthesis diagnostic LT IMPRESSION: -There are no findin gs left breast suspicious for malignancy. -There are benign ty pe calcifications in the lumpectomy bed, unchanged and consistent with dystrophic etiology. -Recommend this brittany ent return to routine annual bilateral screening in 6 months. ASSESSMENT: BI-RADS BI-RADS 2 - Benign Findings RECOMMENDATION: 1 year F/U Results were provide d to the patient at time of visit by the technologist. This patient's information was entered into a reminder system with a target due date for their next mammogram. Dictated By: Chalino Newman MD Signed By: <Electronically signed by Chalino Newman MD in OV> 11/20/23 1242 DD/ 1150 TD/TT: [employer] Designer: MAMMOGRAM DIGITAL BILATERAL SCREEN Reviewed date:11/22/2023 04:00:54 PM Interpretation:undefined Performing Lab: Notes/Report: undefined Complete Blood Count Auto Di ff Reviewed date:12/26/2023 04:17:10 PM Interpretation: Performing Lab:[facility], [address] [place] [address], [place] [address] Notes/Report: White Blood Count 5.9 4.8-10.8 X10*3/uL Red Blood Count 5.44 4.20-5.50 X10*6/uL Hemoglobin 16.1 12.0-16.0 g/dl Hematocrit 46.6 37.0-47.0 % Mean Corpuscular Volume 85.7 80.0-98.0 fL Mean Corpuscular Hemoglobin 29.6 27.0-33.0 pg Mean Corpuscular HGB Conc 34.5 31.0-35.0 g/dl Red Cell Distribution Width 13.2 11.0-16.0 % Platelet Count 257 160-400 X10*3/uL Mean Platelet Volume 9.8 9.4-12.3 fL Neutrophils Percent Auto 47.0 45-73 % Imm Gran Pct Auto 0.3 0.0-0.4 % Lymphocytes Percent Auto 32.9 20-40 % Monocytes Percent Auto 8.9 2-11 % Eosinophils Percent Auto 8.9 0-4 % Basophils Percent Auto 2.0 0-2 % NRBC Pct Auto 0.0 0.0-0.2 /100WBC Neutrophils Absolute Auto 2.8 2.0-8.3 x10*3/u L Imm Gran Abs Auto 0.02 0.00-0.03 X10*3/uL Lymphocytes Absolute Auto 2.0 1.2-4.9 X10*3/u L Monocytes Absolute Auto 0.5 0.1-1.2 X10*3/uL Eosinophils Absolute Auto 0.5 0.0-0.4 X10*3/u L Basophils Absolute Auto 0.1 0.0-0.2 X10*3/uL NRBC Abs Auto 0.000 0.0-0.012 X10*3/uL Comprehensive [place]. Panel Fa st Reviewed date:12/26/2023 04:17:10 PM Interpretation: Performing Lab:[facility], [address] [place] [phone] Notes/Report: Sodium 141 135-145 mmol/L Potassium 4.5 3.3-5.1 mmol/L Chloride 105 96-108 mmol/L Carbon Dioxide 27 22-29 mmol/L Anion Gap 14 12-20 Blood Urea Nitrogen 10 9-16 mg/dL Creatinine 0.99 0.5-1.4 mg/dL Estimated Glomerular Filt Rate 59 NOTE: For -Surinamese individuals, multiply the result by 1.210. Chronic Kidney Disease: Estimated GFR < 60 mL/min/1.73m2 Severe Kidney Disease: Estimated GFR < 15 mL/min/1.73m2 Glucose Fasting 100 60-99 mg/dL A fasting glucose from 100-125 mg/dl is considered impaired (pre-diabetes). Calcium 10.2 8.4-10.2 mg/dL Bilirubin Total 1.1 0.0-1.0 mg/dL Aspartate Amino Transferase 45 5-31 U/L Alanine Aminotransferase 40 0-31 U/L Total Protein 7.8 6.5-8.0 g/dL Albumin Level 4.6 3.5-5.0 g/dL Alkaline Phosphatase 138 39-117 U/L Lipid Panel Reviewed date:12/26/2023 04:17:10 PM Interpretation: Performing Lab:[facility], [address] [place] [phone] Notes/Report: Triglycerides 135 <150 mg/dL Desirable Triglyceride: less than 150 mg/dL Borderline High Triglyceride 150-199 mg/dL High Triglyceride: 200-499 mg/dL Very High Triglyceride: greater than or equal to 5OO mg/dL Cholesterol 367 <200 mg/dL Desirable Cholesterol: less than 200 mg/dL Borderline High Cholesterol: 200-239 mg/dL High Cholesterol: greater than 239 mg/dL LDL Cholesterol Calculated 269 <100 mg/dL Desirable LDL: less than 100 mg/dL Near Optimal/Above Optimal LDL: 110-129 mg/dL Borderline High LDL: 130-159 mg/dL High LDL: 160-189 mg/dL Very High LDL: greater than or equal to 190 mg/dL HDL Cholesterol 71 >40 mg/dL Desirable HDL: greater than 40 mg/dL Note: This HDL assay may give artificially low results in patients with liver disease. Free T4 (Free Thyroxine) Reviewed date:12/26/2023 04:17:10 PM Interpretation: Performing Lab:[facility], [address] [place] [phone] Notes/Report: Free T4 (Free Thyroxine) 0.61 0.71-1.85 ng/dL Thyroid Stimulating Hormone Reviewed date:12/26/2023 04:17:10 PM Interpretation: Performing Lab:[facility], [address] [place] [phone] Notes/Report: Thyroid Stimulating Hormone > 100.00 0.32-4.0 uIU/mL Note: A sustained TSH level above 2.5 uIU/mL may warrant further investigation. TSH 3rd Generation ([facility]) Reason For Referral No Information Medications Medication SIG (Take, Route, Frequency, Duration) Notes Start Date End Date Status Anastrozole 1 MG Oral Act brandi Levothyroxine Sodium 112 MCG TAKE 1 TABL ET BY MOUTH EVERY DAY IN THE MORNING FOR 90 DAYS for 90 Active Social History Tobacco Use: Social History Observation Description Date Details (start date - stop date) Never Smoker NA - NA Sex Assigned At : Social History Observation Description Sex Assigned At Female Tobacco Use/Smoking Question Answer Notes Patient is a nonsmoker Additional Findings: Tobacco Non-User Aggressive non-smoker Alcohol Screen Question Answer Notes Did you have a drink containing alcohol in the p ast year? No Points 0 Interpretation Negative Problems Problem Type SNOMED Code ICD Code Onset Dates Problem Status W/U Status Risk Notes Problem [id number] Obesity (BMI 30.0-34.9) (E66.9) Active confirmed We have reviewed her diet and nutrition and a plan to lose weight at a rate of one half of a pound per week until the index is normal. Problem Hypertension (43841647) Hypertension (I10) Active confirmed Her blood pressure is in the normal range but slightly higher than usual. She has been compliant with her medications. We stressed the wisdom of progressive weight loss and sodium restriction and regular physical activity. Problem 073635115 Malignant neoplasm of unspecified site of left female breast (C50.912) Active confirmed She continu es on her adjuvant therapy at this time with no significant side effects. There is no sign of relapse are of a new primary. Medical oncology is investigating her menopausal status to see if a switch to anastrozole as warranted. Problem 958386545690922 Lumbago with sciatica, right side (M54.41) Active confirmed She will continue with conservative therapy. She is improving rapidly with rest heat and ibuprofen. Problem 808015481 Lumbago with sciatica, left side (M54.42) Active confirmed She will continue conservative therapy as she is improving rapidly. 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 Problem 185947211 Acquired hypothyroidism (E03.9) Active confirmed She will resume taking the prior dose of levothyroxine after the 2 week hiatus. In 8 weeks the free T4 and TSH will be repeated. Problem 083839240 Iron deficiency anemia due to chronic blood loss (D50.0) Active confirmed She is free of any symptoms and has had no bleeding. Her ferritin has increased into the normal range at 36. No change in her iron therapy was made. Problem 743414900 Anemia, unspecified type (D64.9) Active confirmed Iron deficiency Problem 57317534 Hyperlipidemia, unspecified hyperlipidemia type (E78.5) Active confirmed Be quite elevated total cholesterol is likely exacerbated by the failure to take the thyroid hormone. She will resume taking the levothyroxine and a fasting lipid profile will be repeated. Vital Signs Heart Rate 79 /min 12/26/2023 Temperature 97.6 degrees Fahrenheit 12/26/2023 Blood pressure diastolic 82 mm Hg 12/26/2023 Height 63 in 12/26/2023 Blood pressure systolic 139 mm Hg 12/26/2023 Weight 178 lbs 12/26/2023 BMI 31.53 kg/m2 12/26/2023 Encounters Encounter Location Date Provider Diagnosis Clem Ahn III, MD [address] [place] [address] [place] [phone] 12/26/2023 Clem Ahn Acquired hypothyroid ism E03.9 ; Hyperlipidemia, unspecified hyperlipidemia type E78.5 ; Anemia, unspecified type D64.9 and Obesity (BMI 30.0-34.9) E66.9 Clem Ahn III, MD [address] [place] [address] [place] [phone] 12/28/2023 Clem Ahn III, MD [address] [place] [address] [place] [address] 11/01/2023 Clem Ahn Malignant neoplasm o f [...] unspecified type (ICD-10 - D64.9) Iron deficiency 11/01/2023 Malignant neoplasm o f unspecified site of left female breast (ICD-10 - C50.912) 12/26/2023 Obesity (BMI 30.0-34.9) (ICD-10 - E66.9) We have reviewed her diet and nutrition and a plan to lose weight at a rate of one half of a pound per week until the index is normal. Plan Of Treatment Pending Test Test Name Order Date PROFILE, FASTING (COMPREHENSIVE METABOLI C) 03/17/2021 PROFILE, FASTING (COMPREHENSIVE METABOLI C) 12/16/2020 PROFILE, FASTING (COMPREHENSIVE METABOLI C) 11/12/2017 PROFILE, FASTING (COMPREHENSIVE METABOLI C) 12/26/2023 PROFILE, FASTING (COMPREHENSIVE METABOLI C) 12/20/2022 PROFILE, FASTING (COMPREHENSIVE METABOLI C) 07/16/2020 PROFILE, FASTING (COMPREHENSIVE METABOLI C) 09/15/2021 PROFILE, FASTING (COMPREHENSIVE METABOLI C) 02/11/2020 PROFILE, RANDOM (COMPREHENSIVE METABOLIC ) 08/12/2019 PROFILE, RANDOM (COMPREHENSIVE METABOLIC ) 08/06/2018 PROFILE, RANDOM (COMPREHENSIVE METABOLIC ) 08/09/2020 LIPID PANEL 07/16/2020 LIPID PANEL 09/15/2021 LIPID PANEL 02/11/2020 LIPID PANEL 03/17/2021 LIPID PANEL 12/16/2020 LIPID PANEL 11/12/2017 LIPID PANEL 08/12/2019 LIPID PANEL 08/09/2020 LIPID PANEL 12/20/2022 FREE T4 (FT4) 12/20/2022 FREE T4 (FT4) 07/16/2020 FREE T4 (FT4) 09/15/2021 FREE T4 (FT4) 02/11/2020 FREE T4 (FT4) 12/16/2020 FREE T4 (FT4) 08/06/2018 FREE T4 (FT4) 08/12/2019 TSH (THYROID STIMULATING HORMONE) 2018 TSH (THYROID STIMULATING HORMONE) 2019 TSH (THYROID STIMULATING HORMONE) 2022 TSH (THYROID STIMULATING HORMONE) 2020 TSH (THYROID STIMULATING HORMONE) 2021 TSH (THYROID STIMULATING HORMONE) 2019 TSH (THYROID STIMULATING HORMONE) 2020 TSH (THYROID STIMULATING HORMONE) 2023 FERRITIN 08/06/2018 FERRITIN 04/08/2018 FERRITIN 08/12/2019 FERRITIN 02/08/2018 FERRITIN 12/14/2017 B12 12/14/2017 FOLATE 12/14/2017 CBC w DIFF 12/16/2020 CBC w DIFF 02/08/2018 CBC w DIFF 08/09/2020 CBC w DIFF 08/06/2018 CBC w DIFF 04/08/2018 CBC w DIFF 08/12/2019 CBC w DIFF 12/20/2022 CBC w DIFF 12/14/2017 CBC w DIFF 07/16/2020 CBC w DIFF 09/15/2021 CBC w DIFF 02/11/2020 CBC w DIFF 03/17/2021 CBC w DIFF 11/12/2017 RETICULOCYTE COUNT,CORRECTED 12/14/2017 CBC WITH AUTO DIFF 12/26/2023 SARS COV2 RNA RT PCR 09/10/2019 Ferritin 12/26/2023 Lipid Panel 12/26/2023 Free T4 (Free Thyroxine) 12/26/2023 Next Appt Details Provider Name:Clem Ahn, 07/07/2024 04:00:00 PM, [address] [facility] [place], [place], [phone], Provider Name:Clem Ahn, 12/30/2024 04:00:00 PM, [address] [facility] [place], [place], [address], Insurance Providers Payer Name Payer Address Payer Phone Subscriber Number Group Number Insured Name Patient Relationship to Insured Coverage Start Date Coverage End Date [facility] [id number] [place], [place] [id number] [phone] [id number] RUDIO KRISTEN HASSAN Self - patient is the insured Medical (General) History Medical History History ICD Code Hypothyroidism, unspecified type E03.9 Hyperlipidemia, unspecified hyperlipidem ia type E78.5 cellulitis left leg July 2017 tick bite July 2017 posterior left thig h overweight, BMI 29 miscarriage 2005 anemia November 2017 septate uterus 2003. By ultrasound benign lesion left eyelid mucous cyst finger [id number] ER, 9 mm, triple po sitive, node-negative, unifocal invasive ductal carcinoma left breast, 02-27-20 Surgical History Surgery Date(Month/Year) biopsy left breast, lumpectomy and senti sandi node biopsy 03/2020 hysterectomy 12/2017 tonsillectomy hysteroscopy for thickened e ndometrial stripe, normal secretory endometrium 2004 G2 by , one SAB 09/2004 tonsillectomy age 19
--- OUTSIDE RECORDS SUMMARY | 2024-06-30 07:44 | XMS_ITS ---
Author Organization Clem Ahn III, MD Address [address] [place] [address] Care Team Providers Care Crystallizer Operator Name Role Phone Clem Ahn Primary Care Provider [phone] REASON FOR VISIT Follow up Social History Sex Assigned At : Social History Observation Description Sex Assigned At Female Encounters Encounter Location Date Provider Diagnosis Clem Ahn III, MD [address] [place] [address] [place] [id number] 05/28/2024 Clem Ahn Plan Of Treatment Next Appt Details Provider Name:Clem Ahn, 07/07/2024 04:00:00 PM, [address] [place] [address] [place], [id number], Provider Name:Clem Ahn, 12/30/2024 04:00:00 PM, [address] [place] [address] [place], [id number], Progress Notes * ANGELA LERMADOB:[birth year] (54 yo F)Acc No.[id number]:05/28/2024 Progress Notes Patient:?ANGELA LERMA Provider:?Clem Ahn MD :1970???Age:54 Y???Sex:Female D ate:05/28/2024 Address[address] [place], [phone] Subjective: * Chief Complaints: * ???1. Follow up. * Medical History:? Objective: * Vitals:? Assessment: Plan: * Treatment: * Images: * The named appointment provid er may or may not be the originator of this progress note, and it is not deemed complete until electronically signed by the appointment provider. Sign off status: Pending * Provider:?Clem Ahn MD Date:?05/14 Generated for Manuel rasheed/Mojgan/Claudineitting on:?06/30/2024 07:44 AM EST
--- OUTSIDE RECORDS SUMMARY | 2024-06-30 07:44 | XMS_ITS ---
Author Organization [facility] Address [address] [place] [address] Care Team Providers Care Aging Room Operator Name Role Phone Clem Ahn MD Primary Care Provider Unavailab Cheko Bruce Jr Unavailable REASON FOR VISIT Patient presents today for a COLON SCREENING Encounters Encounter Location Date Provider Diagnosis [facility] [address] [place] [phone] 05/30/2023 Cheko Fuller Jr PLAN OF TREATMENT No Information
--- OUTSIDE RECORDS SUMMARY | 2024-06-30 07:44 | XMS_ITS ---
Author Organization [facility] Address [address] [place] [phone] Care Team Providers Care Apprentice Plumber Name Role Phone Clem Anh MD Primary Care Provider Unavailab Cheko Bruce Jr Unavailable REASON FOR VISIT cancelled appt Encounters Encounter Location Date Provider Diagnosis [facility] [address] [facility] [address] [place] [phone] 05/29/2023 Cheko Fuller Jr PLAN OF TREATMENT No Information
--- OUTSIDE RECORDS SUMMARY | 2024-06-30 07:45 | XMS_ITS | Clinical Summary ---
Author Organization [facility] Address [address] [place] [address] Care Team Providers Care Warehouse Foreman Name Role Phone Clem Ahn MD Primary Care Provider [phone] Allergies No known active allergies Medications Medication Sig Dispensed Refills Start Date End Date Status levothyroxine (SYNTHROID) tablet 112 mcg Take 1 tablet (112 mcg total) by mouth every morning on an empty stomach. 0 Active anastrozole (ARIMIDEX) 1 MG tablet TAKE 1 TABLET BY MOUTH EVERY DAY 90 tablet 3 09/26/2023 Active Active Problems No known active problems Family History Medical History Relation Name Comments Hypertension Father Cancer Maternal Aunt No Sig Med Hx Mother Cancer Paternal Aunt 1 Cancer Paternal Aunt 2 Cancer Sister Ovarian Relation Name Status Comments Father Alive Maternal Aunt Mother Alive Paternal Aunt 1 Paternal Aunt 2 Sister Apr 08, 2020 Social History Tobacco Use Types Packs/Day Years Used Date Smoking Tobacco: Never Smokeless Tobacco: Never Alcohol Use Standard Drinks/Week Comments Yes 0 (1 standard drink = 0.6 oz pur e alcohol) social Sex and Gender Information Value Date Recorded Sex Assigned at Not on file Gender Identity Not on file Sexual Orientation Not on file Job Start Date Occupation Industry Not on file Not on file Not on file Last Filed Vital Signs Vital Sign Reading Time Taken Comments Blood Pressure 139/95 08/03/2023 9:25 AM EDT Pulse 75 08/03/2023 9:25 AM EDT Temperature 36.2 ??C (97.2 ??F) 08/03/2023 9:25 AM ED T Respiratory Rate 16 01/07/2021 8:36 AM EDT Oxygen Saturation 100% 08/03/2023 9:25 AM EDT Inhaled Oxygen Concentration - - Weight 80.3 kg (177 lb) 08/03/2023 9:25 AM EDT Height 157.5 cm (5' 2 ) 08/03/2023 9:25 AM EDT Body Mass Index 32.37 08/03/2023 9:25 AM EDT Plan of Treatment Health Maintenance Due Date Last Done Comments Hepatitis B Vaccines (1 of 3 - 3-dose series) 1970 Hepatitis C Screening 1970 COVID-19 Vaccine (#1) 1975 Pneumococcal Vaccine (1 of 2 - PCV) 01/29/1976 Depression Screening 1982 Preventative Health Evaluation 01/29/1988 DTap / Tdap / Td (1 - Tdap) 1989 Shingrix-Zoster Vaccine (1 of 2) 1989 Cervical Cancer Screening (P ap Smear) 1991 Colon Cancer Screening (Colonoscopy) 2015 Breast Cancer Screening (Mammogram) 01/29/2020 Influenza Vaccine (#1) 2024 RSV Ped < 20 months Aged Out No longe r eligible based on patient's age to complete this topic Care Teams Warehouse Foreman Relationship Specialty Start Date End Date Clem Ahn MD [facility] [address] [phone] PCP - General Oncology 04/15/20
--- OUTSIDE RECORDS SUMMARY | 2024-06-30 07:45 | XMS_ITS | Patient Health Record ---
Author Organization [facility] Address [address] [place] [phone] Care Team Providers Care Hiv Cts Specialist Name Role Phone Anabelle HENRIQUEZ, Clem Primary Care Provider UnavailCheko De La Vega Jr Unavailable REASON FOR REFERRAL No Information SOCIAL HISTORY Sex Assigned At : Social History Observation Description Sex Assigned At Unknown PLAN OF TREATMENT No Information Insurance Providers Payer Name Payer Address Payer Phone Subscriber Number Group Number Insured Name Patient Relationship to Insured Coverage Start Date Coverage End Date [employer] [address] [place] [address] [id number] ANGELA LERMA Self - patient is the insured
--- OUTSIDE RECORDS SUMMARY | 2024-06-30 07:45 | XMS_ITS ---
Author Organization Clem Ahn III, MD Address [address] [place] [facility] [place] [address] Care Team Providers Care Byproducts Operator Name Role Phone Clem Ahn Primary Care Provider REASON FOR VISIT Colorectal Cancer Screening Social History Sex Assigned At : Social History Observation Description Sex Assigned At Female Encounters Encounter Location Date Provider Diagnosis Clem Ahn III, MD [address] [place] [address] [place] [address] 12/28/2023 Clem Ahn Plan Of Treatment Next Appt Details Provider Name:Clem Ahn, 07/07/2024 04:00:00 PM, [address] [place] [address] [place], [address], Provider Name:Clem Ahn, 12/30/2024 04:00:00 PM, [address] [place] [address] [place], [address], Progress Notes * ANGELA LERMADOB:[birth year] (54 yo F)Acc No.[id number]:12/28/2023 Patient:?ANGELA LERMA :1970???Age:53 Y???Sex:Female Address:[address], [place], [address] * * Date:?
--- OUTSIDE RECORDS SUMMARY | 2024-06-30 07:45 | XMS_ITS | Clinical Summary ---
Author Organization [facility] Address [address] [place] [address] Phone Care Team Providers Care Behavior Clinician Name Role Phone Clem Ahn MD Primary Care Provider [phone] Allergies No known active allergies Medications levothyroxine (SYNTHROID, LEVOTHROID) 112 mcg tablet Take 1 tablet (112 mcg total) by mouth every morning on an empty stomach. 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) (Primary Dx) from Last 3 Months Family History Medical History Relation Name Comments Hypertension Father Cancer Father's Sister 1 Cancer Father's Sister 2 No Known Problems Mother Cancer Mother's Sister Cancer Sister Ovarian Relation Name Status Comments Father Alive Father's Sister 1 Father's Sister 2 Mother Alive Mother's Sister Sister Apr 08, 2020 Social History Tobacco Use Types Packs/Day Years Used Date Smoking Tobacco: Never Smokeless Tobacco: Never Alcohol Use Standard Drinks/Week Comments Yes 0 (1 standard drink = 0.6 oz pur e alcohol) Comments Unknown Sex and Gender Information Value Date Recorded Sex Assigned at Not on file Legal Sex Female 8:08 AM EST Gender Identity Not on file Sexual Orientation Not on file Obstetrics History Last Filed Vital Signs Vital Sign Reading Time Taken Comments Blood Pressure 139/94 04/18/2024 9:26 AM EST Pulse 77 04/18/2024 9:26 AM EST Temperature 36.9 ??C (98.5 ??F) 04/18/2024 9:26 AM ES T Respiratory Rate - - Oxygen Saturation 100% 04/18/2024 9:26 AM EST Inhaled Oxygen Concentration - - Weight 81.6 kg (180 lb) 04/18/2024 9:26 AM EST Height 157.5 cm (5' 2 ) 08/03/2023 9:25 AM EDT Body Mass Index 32.92 08/03/2023 9:25 AM EDT Plan of Treatment Upcoming Encounters Date Type Department Care Team (Late st Contact Info) Description 12/19/2024 9:00 AM EDT Office Visit [facility] Hematology Oncology [address] [place] [address] Eduard Davis MD [address] [place] [address] Health Maintenance Due Date Last Done Comments Breast Cancer Screening 1970 DTaP,Tdap,and Td Vaccines (1 - Tdap) 1989 Hepatitis B Vaccines (1 of 3 - 19+ 3-dose series) 1989 Pneumococcal Vaccine: 50+ Years (1 of 2 - PCV) 1989 Pneumococcal Vaccine: Pediatrics (0 to 5 Years) and At-Risk Patients (6 to 64 Years) (1 of 2 - PCV) 1989 Zoster Vaccines (1 of 2) 1989 Cervical Cancer Screening: P ap Smear 1991 COVID-19 Vaccine (3 - Pfizer risk series) 08/24/2020 07/27/2020, 07/06/2020 Colorectal Cancer Screening: Colonoscopy 04/22/2022 Depression Screening 04/22/2022 HIV Screening 04/22/2022 Hepatitis C Screening 04/22/2022 Social Influencers of Health Screening 04/22/2022 Influenza Vaccine (#1) 2024 HIB Vaccines Aged Out No longer eligi ble based on patient's age to complete this topic HPV Vaccines Aged Out No longer eligi ble based on patient's age to complete this topic Hepatitis A Vaccines Aged Out No long er eligible based on patient's age to complete this topic IPV Vaccines Aged Out No longer eligi ble based on patient's age to complete this topic MMR Vaccines Aged Out No longer eligi ble based on patient's age to complete this topic Meningococcal ACWY Vaccine Aged Out N o longer eligible based on patient's age to complete this topic Meningococcal B Vacine Aged Out No lo nger eligible based on patient's age to complete this topic RSV Immunization Patients Under 20 months Aged Out No longer eligible b ased on patient's age to complete this topic Varicella Vaccines Aged Out No longer eligible based on patient's age to complete this topic Procedures Procedure Name Priority Date/Time Associated Diagnosis Comments HISTORICAL IMAGING SCAN RESULT 04/18/2024 from Last 3 Months Results * HISTORICAL IMAGING SCAN RESULT (04/18/2024) Anatomical Region Laterality Modality Ultrasound us Provider Onbase MD PATEL US PROCEDURES Final Resul t from Last 3 Months Insurance [facility] Care Teams Behavior Clinician Relationship Specialty Start Date End Date Clem Ahn MD PCP - General Oncology 04/15/20
--- OUTSIDE RECORDS SUMMARY | 2024-06-30 07:45 | XMS_ITS ---
Author Organization Clem Ahn III, MD Address [address] [place] [address] Care Team Providers Care Glue Machine Operator Name Role Phone Clem Ahn Primary Care Provider REASON FOR VISIT Follow up Social History Sex Assigned At : Social History Observation Description Sex Assigned At Female Encounters Encounter Location Date Provider Diagnosis Clem Ahn III, MD [address] [place] [address] [place] [address] 04/01/2024 Clem Ahn Plan Of Treatment Next Appt Details Provider Name:Clem Ahn, 07/07/2024 04:00:00 PM, [address] [place] [address] [address] [facility] [place], [address], Provider Name:Clem Ahn, 12/30/2024 04:00:00 PM, [address] [place] [address] [place], [address], Progress Notes * ANGELA LERMADOB:[birth year] (54 yo F)Acc No.[id number]:04/01/2024 Progress Notes Patient:?ANGELA LERMA Provider:?Clem Ahn MD :1970???Age:54 Y???Sex:Female D ate:04/01/2024 [address] [place] [phone] Subjective: * Chief Complaints: * ???1. Follow up. * Medical History:? Objective: * Vitals:? Assessment: Plan: * Treatment: * Images: * The named appointment provid er may or may not be the originator of this progress note, and it is not deemed complete until electronically signed by the appointment provider. Sign off status: Pending * Provider:?Clem Ahn MD Date:?03/14 Generated for Manuel rasheed/Mojgan/Claudineitting on:?06/30/2024 07:44 AM EST
--- OUTSIDE RECORDS SUMMARY | 2024-06-30 07:45 | XMS_ITS ---
Author Organization [facility] Address [address] [place] [phone] Care Team Providers Care Microfilming Document Preparer Name Role Phone Clem Ahn MD Primary Care Provider Unavailab Cheko Bruce Jr Unavailable REASON FOR VISIT new insurance? Encounters Encounter Location Date Provider Diagnosis [facility] [address] [place] [phone] 04/11/2023 Cheko Fuller Jr PLAN OF TREATMENT No Information
[2024-06-30 07:49] LABS: MANUAL DIFF FLAG NO
[2024-06-30 08:06] LABS: Basophils Absolute Auto 0.1 X10*3/uL (0.0-0.2); Basophils Percent Auto 1.5 % (0-2); Eosinophils Absolute Auto 0.8 X10*3/uL (0.0-0.4); Eosinophils Percent Auto 12.9 % (0-4); Hematocrit 44.3 % (37.0-47.0); Hemoglobin 15.2 g/dl (12.0-16.0); Imm Gran Abs Auto 0.03 X10*3/uL (0.00-0.03); Imm Gran Pct Auto 0.5 % (0.0-0.4); Lymphocytes Absolute Auto 1.8 X10*3/uL (1.2-4.9); Lymphocytes Percent Auto 28.5 % (20-40); Mean Corpuscular HGB Conc 34.3 g/dl (31.0-35.0); Mean Corpuscular Hemoglobin 29.4 pg (27.0-33.0); Mean Corpuscular Volume 85.7 fL (80.0-98.0); Mean Platelet Volume 9.3 fL (9.4-12.3); Monocytes Absolute Auto 0.7 X10*3/uL (0.1-1.2); Neutrophils Absolute Auto 2.8 x10*3/uL (2.0-8.3); Neutrophils Percent Auto 45.6 % (45-73); Platelet Count 274 X10*3/uL (160-400); Red Blood Count 5.17 X10*6/uL (4.20-5.50); White Blood Count 6.2 X10*3/uL (4.8-10.8)
[2024-06-30 08:36] LABS: Alanine Aminotransferase 35 U/L (0-31); Albumin Level 4.3 g/dL (3.5-5.0); Alkaline Phosphatase 116 U/L (39-117); Anion Gap 15 (12-20); Aspartate Amino Transferase 38 U/L (5-31); Bilirubin Total 1.2 mg/dL (0.0-1.0); Blood Urea Nitrogen 12 mg/dL (9-16); Calcium 9.9 mg/dL (8.4-10.2); Carbon Dioxide 25 mmol/L (22-29); Chloride 107 mmol/L (96-108); Cholesterol 255 mg/dL (<200); Estimated Glomerular Filt Rate > 60; Glucose Fasting 103 mg/dL (60-99); HDL Cholesterol 53 mg/dL (>40); LDL Cholesterol Calculated 167 mg/dL (<100); Potassium 4.1 mmol/L (3.3-5.1); Sodium 143 mmol/L (135-145); Total Protein 7.8 g/dL (6.5-8.0); Triglycerides 177 mg/dL (<150)
[2024-06-30 08:55] LABS: Ferritin 199 ng/mL (10-250); Free T4 (Free Thyroxine) 1.31 ng/dL (0.71-1.85); Thyroid Stimulating Hormone 0.13 uIU/mL (0.32-4.0)
== END 2024-06-30 07:41 | disposition home or self-care (01) ==
LOC: HO.LAB 07:40
PROVIDERS: PCP Internal Medicine Medical Oncology; Visit Provider Internal Medicine Medical Oncology
DX: E03.9 Hypothyroidism, unspecified (principal); E78.5 Hyperlipidemia, unspecified; D64.9 Anemia, unspecified; E66.9 Obesity, unspecified
CPT/HCPCS: 36415; 80053; 80061; 82728; 84439; 84443; 85025

== ENCOUNTER 2024-12-26 07:21 | Outpatient (REF) | payer OTHER, SELFPAY ==
[2024-12-26 07:38] LABS: MANUAL DIFF FLAG NO
[2024-12-26 08:40] LABS: Hematocrit 42.7 % (37.0-47.0); Hemoglobin 14.5 g/dl (12.0-16.0); Imm Gran Abs Auto 0.03 X10*3/uL (0.00-0.03); Imm Gran Pct Auto 0.5 % (0.0-0.4); Lymphocytes Absolute Auto 1.5 X10*3/uL (1.2-4.9); Mean Corpuscular HGB Conc 34.0 g/dl (31.0-35.0); Mean Corpuscular Hemoglobin 28.9 pg (27.0-33.0); Mean Corpuscular Volume 85.2 fL (80.0-98.0); NRBC Abs Auto 0.000 X10*3/uL (0.0-0.012); NRBC Pct Auto 0.0 /100WBC (0.0-0.2); Platelet Count 248 X10*3/uL (160-400); Red Blood Count 5.01 X10*6/uL (4.20-5.50); White Blood Count 5.5 X10*3/uL (4.8-10.8)
[2024-12-26 09:36] LABS: Alanine Aminotransferase 43 U/L (0-31); Albumin Level 4.3 g/dL (3.5-5.0); Alkaline Phosphatase 132 U/L (39-117); Anion Gap 11 (12-20); Aspartate Amino Transferase 36 U/L (5-31); Blood Urea Nitrogen 14 mg/dL (9-16); Calcium 9.4 mg/dL (8.4-10.2); Carbon Dioxide 24 mmol/L (22-29); Chloride 109 mmol/L (96-108); Cholesterol 276 mg/dL (<200); Estimated Glomerular Filt Rate > 60; Free T4 (Free Thyroxine) 1.17 ng/dL (0.71-1.85); HDL Cholesterol 54 mg/dL (>40); Potassium 4.4 mmol/L (3.3-5.1); Sodium 140 mmol/L (135-145); Thyroid Stimulating Hormone 0.86 uIU/mL (0.32-4.0); Total Protein 7.1 g/dL (6.5-8.0); Triglycerides 130 mg/dL (<150)
== END 2024-12-26 07:22 | disposition home or self-care (01) ==
LOC: HO.LAB 07:21
PROVIDERS: Visit Provider Internal Medicine Medical Oncology
DX: D50.0 Iron deficiency anemia secondary to blood loss (chronic) (principal); E78.5 Hyperlipidemia, unspecified; E03.9 Hypothyroidism, unspecified; M25.511 Pain in right shoulder
CPT/HCPCS: 36415; 80053; 80061; 84439; 84443; 85025

== ENCOUNTER 2025-03-03 11:31 | Outpatient (REF) | payer OTHER, SELFPAY ==
--- OUTSIDE RECORDS SUMMARY | 2023-11-01 09:39 | XMS_ITS ---
Author Organization Clem Ahn III, MD Address [address] [place] [address] Care Team Providers Care Software Publisher Name Role Phone Dr. Clem Ahn III Primary Care Provider REASON FOR VISIT Order request Social History Sex Assigned At : Social History Observation Description Sex Assigned At Female Encounters Encounter Location Date Provider Diagnosis Clem Ahn III, MD [address] [place] [address] [place] [address] 11/01/2023 Clem Ahn Malignant neoplasm o f unspecified site of left female breast C50.912 Assessments Encounter Date Diagnosis (ICD Code) Assessment Notes Treat ment Notes Treatment Clinical Notes 11/01/2023 Malignant neoplasm of unspecified site of left female breast (ICD-10 - C50.912) Plan Of Treatment Next Appt Details Provider Name:Clem Ahn , 03/06/2025 03:15:00 PM, [address] [place] [address] [place], [address], Provider Name:Clem Ahn , 05/05/2025 04:00:00 PM, [address] [place] [address] [place], [address], Provider Name:Clem Ahn , 01/04/2026 04:00:00 PM, [address] [place] [address] [place], [address], Progress Notes * ANGELA HASSANDOB:[birth year] (53 yo F)Acc No.[id number]:11/01/2023 Patient: ANGELA MAYFIELD :1970 A ge:53 Y S ex:Female Address:[address] [place] [address], [place], [address] Subjective: * Chief Complaints: * O rder request * Medical History: * Surgical History: * Hospitalization/Major Diagno stic Procedure: * Medications: Objective: Assessment: * Assessment: 1. M alignant neoplasm of unspecified site of left female breast - C50.912 Plan: * Treatment: * Procedure Codes: * true * Date: Generated for Manuel rasheed/Mojgan/Claudineitting on: 02:56 PM EDT
--- OUTSIDE RECORDS SUMMARY | 2023-12-26 12:00 | XMS_ITS ---
Author Organization Clem Ahn III, MD Address [address] [place] [address] Care Team Providers Care Telephonic Nurse Case Manager Name Role Phone Dr. Clem hAn III Primary Care Provider Allergies Allergen (clinical drug ingredient) Drug/Non Drug Allergy documented on EMR Reaction Allergy Type Onset Date Status No Known Drug Allergy Unknown Drug Allergy Active REASON FOR VISIT annual exam Medications Medication SIG (Take, Route, Frequency, Duration) Notes Start Date End Date Status Levothyroxine Sodium 112 MCG TAKE 1 TABL ET BY MOUTH EVERY DAY IN THE MORNING ON EMPTY STOMACH Active Levothyroxine Sodium 112 MCG 1 tablet in the morning Orally Once a day 11/13/2022 Active Anastrozole 1 MG Oral Act brandi Social History Tobacco Use: Social History Observation Description Date Details (start date - stop date) Never Smoker NA - NA Sex Assigned At : Social History Observation Description Sex Assigned At Female Tobacco Use/Smoking Question Answer Notes Patient is a nonsmoker Additional Findings: Tobacco Non-User Aggressive non-smoker Vital Signs Temperature 97.6 degrees Fahrenheit 12/26/19 24 Blood pressure systolic 139 mm Hg 12/26/19 24 Blood pressure diastolic 82 mm Hg 024 Heart Rate 79 /min 12/26/2023 Height 63 in 12/26/2023 Weight 178 lbs 12/26/2023 BMI 31.53 kg/m2 12/26/2023 Encounters Encounter Location Date Provider Diagnosis Clem Ahn III, MD [address] [place] [address] [place] [address] 12/26/2023 Clem Ahn Acquired hypothyroid ism E03.9 ; Hyperlipidemia, unspecified hyperlipidemia type E78.5 ; Anemia, unspecified type D64.9 and Obesity (BMI 30.0-34.9) E66.9 Assessments Encounter Date Diagnosis (ICD Code) Assessment Notes Treat ment Notes Treatment Clinical Notes 12/26/2023 Acquired hypothyroidism (ICD-10 - E03.9) She will resume taking the prior dose of levothyroxine after the 2 week hiatus. In 8 weeks the free T4 and TSH will be repeated. 12/26/2023 Hyperlipidemia, unspecified hyperlipidemia type (ICD-10 - E78.5) Be quite elevated total cholesterol is likely exacerbated by the failure to take the thyroid hormone. She will resume taking the levothyroxine and a fasting lipid profile will be repeated. 12/26/2023 Anemia, unspecified type (ICD-10 - D64.9) Iron deficiency 12/26/2023 Obesity (BMI 30.0-34.9) (ICD-10 - E66.9) We have reviewed her diet and nutrition and a plan to lose weight at a rate of one half of a pound per week until the index is normal. Plan Of Treatment Medication Medication Name Sig Start Date Stop Date Notes Levothyroxine Sodium 112 MCG TAKE 1 TABL ET BY MOUTH EVERY DAY IN THE MORNING ON EMPTY STOMACH Levothyroxine Sodium 112 MCG 1 tablet in the morning Orally Once a day 11/13/2022 Anastrozole 1 MG Oral Pending Test Test Name Order Date PROFILE, FASTING (COMPREHENSIVE METABOLI C) 12/26/2023 TSH (THYROID STIMULATING HORMONE) 2023 CBC WITH AUTO DIFF 12/26/2023 Ferritin 12/26/2023 Lipid Panel 12/26/2023 Free T4 (Free Thyroxine) 12/26/2023 Next Appt Details Follow Up: 3 Months, Reason: OV Provider Name:Clem Ahn , 03/06/2025 03:15:00 PM, [address] [place] [address] [address], [place], [address], Provider Name:Clem Ahn , 05/05/2025 04:00:00 PM, [address] [place] [address] [address], [place], [address], Provider Name:Clem Ahn , 01/04/2026 04:00:00 PM, [address] [place] [address] [address], [place], [address], Progress Notes * ANGELA HASSANDOB:[birth year] (53 yo F)Acc No.[id number]:12/26/2023 Progress Notes Patient: ANGELA MAYFIELD Provider: Solo Ahn MD :1970 A ge:53 Y S ex:Female Date:12/26/2023 Address:[address] [place], [place] [id number] Subjective: * Chief Complaints: * A nnual exam * HPI: D epression Screening: She returns to the office at the age of 53 for her annual physical examination. She is followed for low back pain, carcinoma the left breast in remission, iron deficiency anemia, hyperlipidemia and required hypothyroidism. Comprehensive blood work is available. Her TSH was over 100 and her free T4 was 0.61. She says that she had run out of her medication and failed to refill it for 2 weeks. She has refilled it and begin taking it only yesterday. A repeat value was ordered a week from today. She is otherwise healthy and well and his eyes a chest pain, shortness of breath or bleeding. PHQ-9 L ittle interest or pleasure in doing things?Not at all F eeling down, depressed, or hopeless N ot at all T rouble falling or staying asleep, or sleeping too much S everal days F eeling tired or having little energy N ot at all P oor appetite or overeating S everal days F eeling bad about yourself or that you are a failure, or have let yourself or your family down N ot at all T rouble concentrating on things, such as reading the newspaper or watching television N ot at all M oving or speaking so slowly that other people could have noticed; or the opposite, being so fidgety or restless that you have been moving around a lot more than usual N ot at all T houghts that you would be better off or of hurting yourself in some way N ot at all T otal Score 2 I nterpretation M inimal Depression C OVID-19 Screening: Questions H ave you experienced fever, chills, cough, sore throat, shortness of breath, difficulty breathing, muscle aches, loss of taste or smell? N o H ave you been exposed to the virus within the last 10 days? N o H ave you travelled internationally in the last 10 days? N o H ave you been exposed to COVID-19 in the past? N o S ZENAIDA Questions: SDOH Questions I n the past year have you been worried about losing your housing? N o I n the past year have you or any family members you live with been unable to get any of the following when it was really needed? Check all that apply: N one * ROS: G eneral/Constitutional: pain o nly normal aches and pains. C hills d enies.?Fatigue a dmits. F ever d enies. E NT: Decreased hearing d enies. R espiratory: Cough d enies. C ardiovascular: Chest pain with exertion d enies. D yspnea on exertion?denies. S hortness of breath d enies. G astrointestinal: Constipation o ccasional. D ecreased appetite d enies. D iarrhea d enies. H eartburn o ccasional. N ausea d enies. R ectal bleeding d enies. V omiting d enies. H ematology: bruising d enies. p etechiae d enies. S wollen glands n one have been noted. G enitourinary: Frequent urination d enies. M usculoskeletal: Muscle aches d enies. P ainful joints d enies. S ciatica d enies. W eakness t hat is generalized. S kin: Itching d enies. R chaka d enies. S kin lesion(s)?denies. N eurologic: Difficulty speaking d enies. D izziness d enies.?Headache d enies. L ow back pain d enies. P sychiatric: Depressed mood d enies. * Medical History: * Surgical History: t onsillectomy age 19 G2 by , one SAB 09/2004hysteroscopy for thickened endometrial stripe, normal secretory endometrium 2005tonsillectomy hysterectomy 12/2017biopsy left breast, lumpectomy and sentinel node biopsy 03/2020 * Hospitalization/Major Diagno stic Procedure: D enies Past Hospitalization * Family History: F ather: alive 83 yrs, Hyperlipidemia, diagnosed with Hyperlipidemia. M other: alive 80 yrs, Hyperlipidemia, diagnosed with Hyperlipidemia. 1 brother(s) , 3 sister(s) - healthy. 1 son(s) , 1 daughter(s) - healthy. . She she has a sister with ovarian cysts. Her paternal grandfather was hypertensive and had a stroke. Her maternal grandmother had type 2 diabetes and gastric cancer. She has one brother and 3 sisters who are otherwise well. She has a son and a daughter who are healthy and well. One sister od recurrent ovarian cancer. * Social History: T obacco Use: T obacco Use/Smoking P atient is a n onsmoker A dditional Findings: Tobacco Non-User A ggressive non-smoker S he has been to [place] for many years. She works at [employer] and in [place], [place]. They have several children who are healthy and well. * Medications: T akingAnastrozole 1 MG Tablet Oral Levothyroxine Sodium 112 MCG Tablet TAKE 1 TABLET BY MOUTH EVERY DAY IN THE MORNING ON EMPTY STOMACH Taking Anastrozole 1 MG Tablet Oral Taking Levothyroxine Sodium 112 MCG Tablet TAKE 1 TABLET BY MOUTH EVERY DAY IN THE MORNING ON EMPTY STOMACH DiscontinuedAmoxicillin 500 MG Capsule 1 capsule Orally every 8 hrsLevothyroxine Sodium 112 MCG Tablet 1 tablet in the morning Orally Once a dayMedication List reviewed and reconciled with the patientDiscontinued Amoxicillin 500 MG Capsule 1 capsule Orally every 8 hrsDiscontinued Levothyroxine Sodium 112 MCG Tablet 1 tablet in the morning Orally Once a dayMedication List reviewed and reconciled with the patient * Allergies: N o Known Drug Allergyno[Allergies Verified] Objective: * Vitals: H t: 63, Wt:178, BMI:31.53, BP: 139/82, HR:79, Temp:97.6. * P ast Orders: Imaging:MAMMOGRAM DIGITAL BI LATERAL SCREEN * Order Date 11/20/2023 05/16/2022 Result: undefined ???Imaging:MM tomosynthesis diagnostic LT (Order Date - 11/20/2023) (Collection Date - 11/20/2023) * Lab:Complete Blood Count Aut o Diff * Order Date 12/21/2023 12/22/2022 09/08/2021 White Blood Count 5.9 (Ref Range: 4.8-10.8 X10*3/uL) 6.0 (Ref Range: 4.8-10.8 X10*3/uL) 7.5 (Ref Range: 4.8-10.8 X10*3/uL) Red Blood Count 5.44 (Ref Range: 4.20-5.50 X10*6/uL) 4.88 (Ref Range: 4.20-5.50 X10*6/uL) 5.15 (Ref Range: 4.20-5.50 X10*6/uL) Hemoglobin 16.1 H (Ref Range: 12.0-16.0 g/dl) 14.8 (Ref Range: 12.0-16.0 g/dl) 15.3 (Ref Range: 12.0-16.0 g/dl) Hematocrit 46.6 (Ref Range: 37.0-47.0 %) 42.5 (Ref Range: 37.0-47.0 %) 44.6 (Ref Range: 37.0-47.0 %) Mean Corpuscular Volume 85.7 (Ref Range: 80.0-98.0 fL) 87.1 (Ref Range: 80.0-98.0 fL) 86.6 (Ref Range: 80.0-98.0 fL) Mean Corpuscular Hemoglobin 29.6 (Ref Range: 27.0-33.0 pg) 30.3 (Ref Range: 27.0-33.0 pg) 29.7 (Ref Range: 27.0-33.0 pg) Mean Corpuscular HGB Conc 34.5 (Ref Range: 31.0-35.0 g/dl) 34.8 (Ref Range: 31.0-35.0 g/dl) 34.3 (Ref Range: 31.0-35.0 g/dl) Red Cell Distribution Width 13.2 (Ref Range: 11.0-16.0 %) 11.9 (Ref Range: 11.0-16.0 %) 11.7 (Ref Range: 11.0-16.0 %) Platelet Count 257 (Ref Range: 160-400 X10*3/uL) 235 (Ref Range: 160-400 X10*3/uL) 235 (Ref Range: 160-400 X10*3/uL) Mean Platelet Volume 9.8 (Ref Range: 9.4-12.3 fL) 9.5 (Ref Range: 9.4-12.3 fL) 9.4 (Ref Range: 9.4-12.3 fL) Neutrophils Percent Auto 47.0 (Ref Range: 45-73 %) 54.6 (Ref Range: 45-73 %) 56.7 (Ref Range: 45-73 %) Imm Gran Pct Auto 0.3 (Ref Range: 0.0-0.4 %) 0.5 H (Ref Range: 0.0-0.4 %) 0.4 (Ref Range: 0.0-0.4 %) Lymphocytes Percent Auto 32.9 (Ref Range: 20-40 %) 23.4 (Ref Range: 20-40 %) 22.3 (Ref Range: 20-40 %) Monocytes Percent Auto 8.9 (Ref Range: 2-11 %) 9.5 (Ref Range: 2-11 %) 9.7 (Ref Range: 2-11 %) Eosinophils Percent Auto 8.9 H (Ref Range: 0-4 %) 10.5 H (Ref Range: 0-4 %) 9.7 H (Ref Range: 0-4 %) Basophils Percent Auto 2.0 (Ref Range: 0-2 %) 1.5 (Ref Range: 0-2 %) 1.2 (Ref Range: 0-2 %) NRBC Pct Auto 0.0 (Ref Range: 0.0-0.2 /100WBC) 0.0 (Ref Range: 0.0-0.2 /100WBC) 0.0 (Ref Range: 0.0-0.2 /100WBC) Neutrophils Absolute Auto 2.8 (Ref Range: 2.0-8.3 x10*3/uL) 3.3 (Ref Range: 2.0-8.3 x10*3/uL) 4.3 (Ref Range: 2.0-8.3 x10*3/uL) Imm Gran Abs Auto 0.02 (Ref Range: 0.00-0.03 X10*3/uL) 0.03 (Ref Range: 0.00-0.03 X10*3/uL) 0.03 (Ref Range: 0.00-0.03 X10*3/uL) Lymphocytes Absolute Auto 2.0 (Ref Range: 1.2-4.9 X10*3/uL) 1.4 (Ref Range: 1.2-4.9 X10*3/uL) 1.7 (Ref Range: 1.2-4.9 X10*3/uL) Monocytes Absolute Auto 0.5 (Ref Range: 0.1-1.2 X10*3/uL) 0.6 (Ref Range: 0.1-1.2 X10*3/uL) 0.7 (Ref Range: 0.1-1.2 X10*3/uL) Eosinophils Absolute Auto 0.5 H (Ref Range: 0.0-0.4 X10*3/uL) 0.6 H (Ref Range: 0.0-0.4 X10*3/uL) 0.7 H (Ref Range: 0.0-0.4 X10*3/uL) Basophils Absolute Auto 0.1 (Ref Range: 0.0-0.2 X10*3/uL) 0.1 (Ref Range: 0.0-0.2 X10*3/uL) 0.1 (Ref Range: 0.0-0.2 X10*3/uL) NRBC Abs Auto 0.000 (Ref Range: 0.0-0.012 X10*3/uL) 0.000 (Ref Range: 0.0-0.012 X10*3/uL) 0.000 (Ref Range: 0.0-0.012 X10*3/uL) * Lab:Thyroid Stimulating Horm one * Order Date 12/21/2023 12/22/2022 08/03/2020 Thyroid Stimulating Hormone > 100.00 H (Ref Range: 0.32-4.0 uIU/mL) 0.62 (Ref Range: 0.32-4.0 uIU/mL) 0.77 (Ref Range: 0.32-4.0 uIU/mL) * Lab:Free T4 (Free Thyroxine) * Order Date 12/21/2023 12/22/202208/03/2020 Free T4 (Free Thyroxine) 0.61 L (Ref Range: 0.71-1.85 ng/dL) 1.23 (Ref Range: 0.71-1.85 ng/dL) 1.11 (Ref Range: 0.71-1.85 ng/dL) * Lab:Lipid Panel * Order Date 12/21/2023 12/22/2022 09/08/2021 Triglycerides 135 (Ref Range: <150 mg/dL) 118 (Ref Range: mg/dL) 193 (Ref Range: mg/dL) Cholesterol 367 H (Ref Range: <200 mg/dL) 270 (Ref Range: mg/dL) 241 (Ref Range: mg/dL) LDL Cholesterol Calculated 269 H (Ref Range: <100 mg/dL) 192 (Ref Range: mg/dl) 149 (Ref Range: mg/dl) HDL Cholesterol 71 (Ref Range: >40 mg/dL) 55 (Ref Range: mg/dL) 54 (Ref Range: mg/dL) * Lab:Comprehensive [place]. Pane l Fast * Order Date 12/21/2023 12/22/2022 09/08/2021 Sodium 141 (Ref Range: 135-145 mmol/L) 143 (Ref Range: 135-145 mmol/L) 140 (Ref Range: 135-145 mmol/L) Bilirubin Total 1.1 H (Ref Range: 0.0-1.0 mg/dL) 0.9 (Ref Range: 0.0-1.0 mg/dL) 0.8 (Ref Range: 0.0-1.0 mg/dL) Aspartate Amino Transferase 45 H (Ref Range: 5-31 U/L) 25 (Ref Range: 5-31 U/L) 37 H (Ref Range: 5-31 U/L) Alanine Aminotransferase 40 H (Ref Range: 0-31 U/L) 39 H (Ref Range: 0-31 U/L) 51 H (Ref Range: 0-31 U/L) Total Protein 7.8 (Ref Range: 6.5-8.0 g/dL) 7.4 (Ref Range: 6.5-8.0 g/dL) 7.5 (Ref Range: 6.5-8.0 g/dL) Albumin Level 4.6 (Ref Range: 3.5-5.0 g/dL) 4.2 (Ref Range: 3.5-5.0 g/dL) 4.3 (Ref Range: 3.5-5.0 g/dL) Alkaline Phosphatase 138 H (Ref Range: 39-117 U/L) 108 (Ref Range: 39-117 U/L) 93 (Ref Range: 39-117 U/L) Potassium 4.5 (Ref Range: 3.3-5.1 mmol/L) 4.1 (Ref Range: 3.3-5.1 mmol/L) 4.7 (Ref Range: 3.3-5.1 mmol/L) Chloride 105 (Ref Range: 96-108 mmol/L) 108 (Ref Range: 96-108 mmol/L) 105 (Ref Range: 96-108 mmol/L) Carbon Dioxide 27 (Ref Range: 22-29 mmol/L) 24 (Ref Range: 22-29 mmol/L) 28 (Ref Range: 22-29 mmol/L) Anion Gap 14 (Ref Range: 12-20) 15 (Ref Range: 12-20) 12 (Ref Range: 12-20) Blood Urea Nitrogen 10 (Ref Range: 9-16 mg/dL) 13 (Ref Range: 9-16 mg/dL) 13 (Ref Range: 9-16 mg/dL) Creatinine 0.99 (Ref Range: 0.5-1.4 mg/dL) 0.83 (Ref Range: 0.5-1.4 mg/dL) 0.77 (Ref Range: 0.5-1.4 mg/dL) Estimated Glomerular Filt Rate 59 > 60 > 60 Glucose Fasting 100 H (Ref Range: 60-99 mg/dL) 107 H (Ref Range: 60-99 mg/dL) 93 (Ref Range: 60-99 mg/dL) Calcium 10.2 (Ref Range: 8.4-10.2 mg/dL) 9.9 (Ref Range: 8.4-10.2 mg/dL) 10.0 (Ref Range: 8.4-10.2 mg/dL) * Examination: G eneral Examination: GENERAL APPEARANCE: p leasant, well nourished, well developed, in no acute distress, calm and relaxed , obese , woman. HEAD: a traumatic, normocephalic. EYES: e mariam, perrla, anicteric, conjugate. EARS: n ormal. NOSE: s eptum intact. ORAL CAVITY: n ormal, unremarkable. NECK/THYROID: n o jugular venous distention, no carotid bruit, thyroid normal. LYMPH NODES: n o enlarged lymph nodes,spleen normal. SKIN: n o suspicious lesions, anicteric. HEART: n o clicks, gallops, murmurs, or rubs, regular rhythm, S1, S2 normal, no s3, or vascular bruits. LUNGS: c lear to auscultation . BREASTS: no masses palpable bilaterally, Scars Healed. ABDOMEN: b owel sounds normal, no ascites, no organomegaly, no mass , centripital obesity , centripital obesity. RECTAL EXAM: n ot examined. MUSCULOSKELETAL: e xtremities unremarkable, no clubbing, cyanosis or edema , no swelling, redness, or warmth of the elbow , . PERIPHERAL PULSES: n ormal. NEUROLOGIC: a lert and oriented, cranial nerves 2-12 grossly intact, deep tendon reflexes 2+ symmetrical, motor strength normal upper and lower extremities, sensory exam intact. PSYCH: a lert, oriented. Assessment: * Assessment: 1. A cquired hypothyroidism - E03.9 (Primary), She will resume taking the prior dose of levothyroxine after the 2 week hiatus. In 8 weeks the free T4 and TSH will be repeated. 2 . H yperlipidemia, unspecified hyperlipidemia type - E78.5, Be quite elevated total cholesterol is likely exacerbated by the failure to take the thyroid hormone. She will resume taking the levothyroxine and a fasting lipid profile will be repeated. 3 . A nemia, unspecified type - D64.9, Iron deficiency 4 . O besity (BMI 30.0-34.9) - E66.9, We have reviewed her diet and nutrition and a plan to lose weight at a rate of one half of a pound per week until the index is normal. Plan: * Treatment: 2. H yperlipidemia, unspecified hyperlipidemia type L AB: PROFILE, FASTING (COMPREHENSIVE METABOLIC) L AB: TSH (THYROID STIMULATING HORMONE) L AB: CBC WITH AUTO DIFF L AB: Ferritin L AB: Lipid Panel L AB: Free T4 (Free Thyroxine) 3. A nemia, unspecified type L AB: PROFILE, FASTING (COMPREHENSIVE METABOLIC) L AB: TSH (THYROID STIMULATING HORMONE) L AB: CBC WITH AUTO DIFF L AB: Ferritin L AB: Lipid Panel L AB: Free T4 (Free Thyroxine) 4. O besity (BMI 30.0-34.9) L AB: PROFILE, FASTING (COMPREHENSIVE METABOLIC) L AB: TSH (THYROID STIMULATING HORMONE) L AB: CBC WITH AUTO DIFF L AB: Ferritin L AB: Lipid Panel L AB: Free T4 (Free Thyroxine) * Procedure Codes: * Preventive Medicine: Counseling: C are goal follow-up plan: Counseling for abnormal BMI given Y es Above Normal BMI Follow-up D ietary management education, guidance, and counseling * Follow Up: 3 Months (Reason: OV) * Images: * Sign off status: Completed true * Provider: Solo Ahn MD Date: 0 12/26/2023 Generated for Manuel ng/Fazurig/eTransmitting on: 1 02:52 PM EDT History and Physical Notes * HPI (History of Present Illness) Category Sub-Category Detail Notes Depression Screening PHQ-9 Little inte rest or pleasure in doing things: Not at all Feeling down, depressed, or hopeless: No t at all Trouble falling or staying asleep, or sl eeping too much: Several days Feeling tired or having little energy: N ot at all Poor appetite or overeating: Several day s Feeling bad about yourself o r that you are a failure, or have let yourself or your family down: Not at all Trouble concentrating on thi ngs, such as reading the newspaper or watching television: Not at all Moving or speaking so slowly that other people could have noticed; or the opposite, being so fidgety or restless that you have been moving around a lot more than usual: Not at all Thoughts that you would be b pili off or of hurting yourself in some way: Not at all Total Score: 2 Interpretation: Minimal Depression COVID-19 Screening Questions Have you had any new onset fever, chills, cough, congestion, sore throat, shortness of breath, muscle aches?: No Have you been exposed to the virus withi n the last 10 days?: No Have you travelled internationally in e last 10 days?: No Have you been exposed to COVID-19 in the past?: No SDOH Questions SDOH Questions In the past year have you been worried about losing your housing?: No In the past year have you or any family members you live with been unable to get any of the following when it was really needed? Check all that apply:: None Examination Category Sub-Category Detail Notes General Examination GENERAL APPEARANCE: pleasant , well nourished, well developed, in no acute distress, calm and relaxed , obese , woman HEAD: atraumatic, normocep halic EYES: eomi, perrla, anicte aurelia, conjugate EARS: normal NOSE: septum intact NECK/THYROID: no jugular venous di stention, no carotid bruit, thyroid normal HEART: no clicks, gallops, murmurs, or rubs, regular rhythm, S1, S2 normal, no s3, or vascular bruits LUNGS: clear to auscultatio n ABDOMEN: bowel sounds normal, no ascites, no organomegaly, no mass , centripital obesity , centripital obesity NEUROLOGIC: alert and oriented, cranial nerves 2-12 grossly intact, deep tendon reflexes 2+ symmetrical, motor strength normal upper and lower extremities, sensory exam intact SKIN: no suspicious lesion s, anicteric PERIPHERAL PULSES: normal BREASTS: no masses palpable b ilaterally, Scars Healed MUSCULOSKELETAL: extremities unremark able, no clubbing, cyanosis or edema , no swelling, redness, or warmth of the elbow , LYMPH NODES: no enlarged lymph no alex,spleen normal RECTAL EXAM: not examined PSYCH: alert, oriented ORAL CAVITY: normal, unremarkable
--- OUTSIDE RECORDS SUMMARY | 2023-12-28 09:43 | XMS_ITS ---
Author Organization Clem Ahn III, MD Address [address] [place] [address] Care Team Providers Care Wellness Health Coach Name Role Phone Dr. Clem Ahn III Primary Care Provider REASON FOR VISIT Colorectal Cancer Screening Social History Sex Assigned At : Social History Observation Description Sex Assigned At Female Encounters Encounter Location Date Provider Diagnosis Clem Ahn III, MD [address] [place] [address] [place] [address] 12/28/2023 Clem Ahn Plan Of Treatment Next Appt Details Provider Name:Clem Ahn , 03/06/2025 03:15:00 PM, [address] [place] [address] [place], [address], Provider Name:Clem Ahn , 05/05/2025 04:00:00 PM, [address] [place] [address] [place], [address], Provider Name:Clem Ahn , 01/04/2026 04:00:00 PM, [address] [place] [address] [place], [address], Progress Notes * ANGELA LERMADOB:[birth year] (55 yo F)Acc No.[id number]:12/28/2023 Patient: Aliza ROCKANGELA PRESCOTT :1970 A ge:53 Y S ex:Female Address: [address], [place], [address] * * Date:
--- OUTSIDE RECORDS SUMMARY | 2024-04-01 12:15 | XMS_ITS ---
Author Organization Clem Ahn III, MD Address [address] [place] [facility] [place] [address] Care Team Providers Care Laser Beam Cutter Name Role Phone Dr. Clem Ahn III Primary Care Provider [phone] REASON FOR VISIT Follow up Social History Sex Assigned At : Social History Observation Description Sex Assigned At Female Encounters Encounter Location Date Provider Diagnosis Clem Ahn III, MD [address] [place] [address] [place] [address] 04/01/2024 Clem Ahn Plan Of Treatment Next Appt Details Provider Name:Clem Ahn , 03/06/2025 03:15:00 PM, [address] [place] [address] [place], [address], Provider Name:Clem Ahn , 05/05/2025 04:00:00 PM, [address] [place] [address] [place], [address], Provider Name:Clem Ahn , 01/04/2026 04:00:00 PM, [address] [place] [address] [place], [address], Progress Notes * ANGELA LERMADOB:[birth year] (55 yo F)Acc No.[id number]:04/01/2024 Progress Notes Patient: Aliza ROCKANGELA PRESCOTT Provider: Solo Ahn MD :1970 A ge:54 Y S ex:Female Date:04/01/2024 Address: [id number] Subjective: * Chief Complaints: * 1 . [...] Date: 06/01/2023 Generated for Manuel rasheed/Mojgan/Cucosmitting on: 02:53 PM EDT
--- OUTSIDE RECORDS SUMMARY | 2024-05-28 12:00 | XMS_ITS ---
Author Organization Clem Ahn III, MD Address [address] [place] [address] Care Team Providers Care Principal Process Engineer Name Role Phone Dr. Clem Ahn III Primary Care Provider REASON FOR VISIT Follow up Social History Sex Assigned At : Social History Observation Description Sex Assigned At Female Encounters Encounter Location Date Provider Diagnosis Clem Ahn III, MD [address] [place] [address] [place] [address] 05/28/2024 Clem Ahn Plan Of Treatment Next Appt Details Provider Name:Clem Ahn , 03/06/2025 03:15:00 PM, [address] [place] [address] [place], [address], Provider Name:Clem Ahn , 05/05/2025 04:00:00 PM, [address] [place] [address] [place], [address], Provider Name:Clem Ahn , 01/04/2026 04:00:00 PM, [address] [place] [address] [place], [address], Progress Notes * ANGELA LERMADOB:[birth year] (55 yo F)Acc No.[id number]:05/28/2024 Progress Notes Patient: Aliza ROCKANGELA PRESCOTT Provider: Solo Ahn MD :1970 A ge:54 Y S ex:Female Date:05/28/2024 Address: [id number] Subjective: * Chief Complaints: * 1 . [...] 0 05/28/2024 Generated for Manuel rasheed/Mojgan/Claudineitting on: 02:52 PM EDT
--- OUTSIDE RECORDS SUMMARY | 2024-07-07 11:45 | XMS_ITS ---
Author Organization Clem Ahn III, MD Address [address] [place] [address] Care Team Providers Care Senior Business Development Manager Name Role Phone Dr. Clem Ahn [...] Provider Speciality Internal M edicine Referred Provider [facility], Orthopedic Surgeons Referred Provider Specialty Orthopedic S urgery General Notes Leighann Michaud HIGHWAY ENGINEERING TECHNICIAN 07/14 11:11:30 AM > Called pt she [...] Problem Status W/U Status Risk Notes Problem [id number] Acute pain of right shoulder (M25.511) Active [...] Date Provider Diagnosis Clem Ahn III, MD [address] [place] [address] [place] [address] 07/07/2024 Clem Ahn Acquired hypothyroid ism E03.9 [...] 07/07/2024, right sh oulder pain, [facility] Next Appt Details Follow Up: 3 Months, In abou t 3 months, Reason: ov review labs, Follow-up on arm and shoulder pain and osteopenia Provider Name:Clem Ahn , 03/06/2025 03:15:00 PM, [address] [place] [address] [address], [place], [address], Provider Name:Clem Ahn , 05/05/2025 04:00:00 PM, [address] [place] [address] [place], [place], [phone], Provider Name:Clem Ahn , 01/04/2026 04:00:00 PM, [address] [place] [address] [address] [place], [place], [address], Progress Notes * ANGELA HASSAN JuancarlosDOB:[birth year] (54 yo F)Acc No.[id number]:07/07/2024 Progress Notes Patient: ANGELA MAYFIELD Provider: Solo Ahn MD :1970 A ge:54 Y S ex:Female Date:07/07/2024 Address:[address] [place] [phone] Subjective: * Chief Complaints: * R ight [...] Gomez for many years. She works at [employer] and in [place], [place]. They have several children who are [...] 0.000 (Ref Range: 0.0-0.012 X10*3/uL) * Lab:[facility] [place]. [facility] * Collection Date 06/30/2024 [...] Date & Time - 06/30/2024 07:48 AM)?ValueReference Range?[id number] - ng/mL * Lab:Lipid Panel * Collection [...] SHOULDER RT 2 VIEWS Referral To:[facility] Orthopedic Surgery Reason:right shoulder pain 3. H [...] 0 07/07/2024 Generated for Manuel rasheed/Mojgan/Lamin on: 02:56 PM EDT History and Physical Notes * [...] Provider Referred Provider Not es 07/07/2024 Anabelle [facility], Orthopedic Surgeons right shoulder pain
--- OUTSIDE RECORDS SUMMARY | 2024-07-14 07:13 | XMS_ITS ---
Author Organization Clem Ahn III, MD Address [address] [place] [facility] [address] Care Team Providers Care Desk Monitor Name Role Phone Dr. Clem Ahn III Primary Care Provider REASON FOR VISIT Message Social History Sex Assigned At : Social History Observation Description Sex Assigned At Female Encounters Encounter Location Date Provider Diagnosis Clem Ahn III, MD [address] [place] [address] [place] [address] 07/14/2024 Clem Ahn Plan Of Treatment Next Appt Details Provider Name:Clem Ahn , 03/06/2025 03:15:00 PM, [address] [place] [address] [place], [address], Provider Name:Clem Ahn , 05/05/2025 04:00:00 PM, [address] [place] [address] [place], [address], Provider Name:Clem Ahn , 01/04/2026 04:00:00 PM, [address] [place] [address] [place], [address], Progress Notes * ANGELA LERMADOB:[birth year] (54 yo F)Acc No.[id number]:07/14/2024 Patient: Aliza ROCKANGELA PRESCOTT :1970 A ge:54 Y S ex:Female Address: [address], [place], [address] * true * Date: Generated for Manuel rasheed/Mojgan/Lamin on: 02:52 PM EDT
--- OUTSIDE RECORDS SUMMARY | 2024-09-29 10:45 | XMS_ITS ---
Author Organization Clem Ahn III, MD Address [address] [place] [address] Care Team Providers Care Psychiatric Security Nurse Name Role Phone Dr. Clem Ahn III Primary Care Provider [phone] REASON FOR VISIT Follow up Social History Sex Assigned At : Social History Observation Description Sex Assigned At Female Encounters Encounter Location Date Provider Diagnosis Clem Ahn III, MD [address] [place] [address] [place] [address] 09/29/2024 Clem Ahn Plan Of Treatment Next Appt Details Provider Name:Clem Ahn , 03/06/2025 03:15:00 PM, [address] [place] [address] [place], [address], Provider Name:Clem Ahn , 05/05/2025 04:00:00 PM, [address] [place] [address] [place], [address], Provider Name:Clem Ahn , 01/04/2026 04:00:00 PM, [address] [place] [address] [place], [address], Progress Notes * ANGELA LERMADOB:[birth year] (55 yo F)Acc No.[id number]:09/29/2024 Progress Notes Patient: Aliza ROCKANGELA PRESCOTT Provider: Solo Ahn MD :1970 A ge:54 Y S ex:Female Date:09/29/2024 [facility] Subjective: * Chief Complaints: * 1 [...] MD Date: 0 09/29/2024 Generated for Manuel rasheed/Mojgan/Cucosmitting on: 1 02:54 PM EDT
--- OUTSIDE RECORDS SUMMARY | 2024-12-30 12:00 | XMS_ITS ---
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 Clem Ahn III Primary Care Provider [phone] Allergies Allergen (clinical drug ingredient) Drug/Non Drug [...] Provider Diagnosis Clem Ahn III, MD [address] [place] [address] [place] [address] 12/30/2024 Clem Ahn Acquired hypothyroid ism E03.9 [...] OV review labs Provider Name:Clem Ahn , 03/06/2025 03:15:00 PM, [address] [facility] [address], [place], [address], Provider Name:Clem hAn , 05/05/2025 04:00:00 PM, [place] [facility] [address], [address], Provider Name:Clem Ahn , 01/04/2026 04:00:00 PM, [place] [facility] [address], [place], [address], Progress Notes * ANGELA HASSAN JDOB:[birth year] (54 yo F)Acc No.[id number]:12/30/2024 Progress Notes Patient: ANGELA MAYFIELD Provider: Solo Ahn MD :1970 A ge:54 Y S ex:Female Date:12/30/2024 Address:[address] [place], [place] [id number] Subjective: * Chief Complaints: * A nnual exam * HPI: D epression Screening: S he returns at the age of 54 for her annual physical examination. She is followed here for hyperlipidemia, hypothyroidism, iron deficiency, obesity, left breast cancer and hypertension. She has been referred to Dr. Johnson for her first screening colonoscopy. She is due for a mammogram at [facility] which we have scheduled. He denies any [...] Gomez for many years. She works at [employer] in [place], [place]. They have several children who are [...] 12/30/2024 Generated for Ulyssesi kathya/Mojgan/eTransmitting on: 1 02:55 PM EDT History and Physical Notes * [...]
--- OUTSIDE RECORDS SUMMARY | 2025-03-03 07:00 | XMS_ITS ---
Author Organization Clem Ahn III, MD Address [address] [place] [address] Care Team Providers Care Thoracic Surgeon Name Role Phone Dr. Clem Ahn III Primary Care Provider [phone] Allergies Allergen (clinical drug ingredient) Drug/Non Drug Allergy documented on EMR Reaction Allergy Type Onset Date Status No Known Drug Allergy Unknown Drug Allergy Active No Known Food Allergy Unknown Drug Allergy Active Results Component Value Reference Range Notes Free T4 (Free Thyroxine) (No t yet reviewed by provider) Interpretation: Performing Lab:[facility], [address] [place] [id number] Notes/Report: Free T4 (Free Thyroxine) 0.87 0.71-1.85 ng/dL REASON FOR VISIT New Concern Medications Medication SIG (Take, Route, Frequency, Duration) [...] Nonsmoker Additional Findings: Tobacco non-user Aggressive nonsmoker Vital Signs Temperature 98.3 degrees Fahrenheit 03/03/20 25 Heart Rate 96 /min 03/03/2025 Respiratory Rate 16 /min 03/03/2025 Height 63 in 03/03/2025 Weight 181 lbs 03/03/2025 BMI 32.06 kg/m2 03/03/2025 Encounters Encounter Location Date Provider Diagnosis Clem Ahn III, MD [address] [place] [address] [place] [address] 03/03/2025 Clem Ahn Acquired hypothyroid ism E03.9 ; Hyperlipidemia, unspecified hyperlipidemia type E78.5 ; Obesity (BMI 30.0-34.9) E66.9 and Hypertension I10 Assessments Encounter Date Diagnosis (ICD Code) Assessment Notes Treat ment Notes Treatment Clinical Notes 03/03/2025 Acquired hypothyroidism (ICD-10 - E03.9) Her free T4 level is now in the normal range. Her TSH is low normal. He feels euthyroid. Her heart rate is normal and her weight is stable. Her thyroid function tests will be followed and her dose will be optimized. 03/03/2025 Hyperlipidemia, unspecified hyperlipidemia type (ICD-10 - E78.5) 03/03/2025 Obesity (BMI 30.0-34.9) (ICD-10 - E66.9) 03/03/2025 Hypertension (ICD-10 - I10) Plan Of Treatment Medication Medication Name Sig Start Date Stop Date Notes Levothyroxine Sodium 112 MCG TAKE 1 TABL ET BY MOUTH EVERY DAY IN THE MORNING FOR 90 DAYS Anastrozole 1 MG Oral Pending Test Test Name Order Date PROFILE, RANDOM (COMPREHENSIVE METABOLIC ) 03/03/2025 TSH (THYROID STIMULATING HORMONE) 2024 CBC w DIFF 03/03/2025 SED RATE (ESR) 03/03/2025 Free T4 (Free Thyroxine) 03/03/2025 Next Appt Details Follow Up: 2 - 3 Days, Reaso n: Telehealth Provider Name:Clem Ahn , 03/06/2025 03:15:00 PM, [address] [place] [address] [place], [place], [address], Provider Name:Clem Ahn , 05/05/2025 04:00:00 PM, [address] [place] [address] [place], [address], Provider Name:Clem Ahn , 01/04/2026 04:00:00 PM, [address] [place] [address] [place], [address], Progress Notes * THEROUX, ANGELA JDOB:[birth year] (55 yo F)Acc No.[id number]:03/03/2025 Progress Notes Patient: ANGELA MAYFIELD Provider: Solo Ahn MD :1970 A ge:55 Y S ex:Female Date:03/03/2025 Address:[address] [place], [place] [id number] Subjective: * Chief Complaints: * 1 . New Concern. * HPI: C OVID-19 Screening: i think its my heart. beginning oct dizzy like vertigo and headaches all last week, had fever of 102 last sunday, no sore throat or congestion, today haque and dizzy, sounds like bph. Questions H ave you had any new [...] Depressed mood d enies. * Medical History: H ypothyroidism, unspecified type, Hyperlipidemia, unspecified hyperlipidemia type, cellulitis left leg July 2017, tick bite July 2017 posterior left thigh, overweight, BMI 29, Miscarriage 2004, anemia November 2017, septate uterus 2003. 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 * Surgical History: t onsillectomy age 19 , G2 by , one SAB 09/2004, hysteroscopy for thickened endometrial stripe, normal secretory endometrium 2004, tonsillectomy , hysterectomy 12/2017, biopsy left breast, lumpectomy and sentinel node biopsy 03/2020, No history . * Hospitalization/Major Diagno stic Procedure: N o history . * Family History: F ather: alive 83 [...] Gomez for many years. She works at [employer] and in [place], [place]. They have several children who are healthy and well. * Medications: T aking Levothyroxine Sodium 112 MCG Tablet TAKE 1 TABLET BY MOUTH EVERY DAY IN THE MORNING FOR 90 DAYS , Taking Anastrozole 1 MG Tablet Oral , Medication List reviewed and reconciled with the patient * Allergies: N o Known Drug Allergy, No Known Food Allergy. Objective: * Vitals: H t: 63, Wt: 181, BMI:32.06, HR: 96, RR: 16, Temp: 98.3, Wt-k.1. * Examination: G eneral Examination: GENERAL APPEARANCE: p tatum, well nourished, well developed, in no acute distress, calm and relaxed. HEAD: a traumatic, normocephalic. EYES: e mariam, [...] to auscultation . BREASTS: no masses palpable bilaterally. ABDOMEN: b owel sounds normal, no ascites, [...] Assessment: 1. A cquired hypothyroidism - E03.9 N otes :Her free T4 level is now in the normal range. Her TSH is low normal. He feels euthyroid. Her heart rate is normal and her weight is stable. Her thyroid function tests will be followed and her dose will be optimized. 2 . H yperlipidemia, unspecified hyperlipidemia type - E78.5 3 . O besity (BMI 30.0-34.9) - E66.9 4 . H ypertension - I10 Plan: * Treatment: Value Reference Range F [...] IN THE MORNING FOR 90 DAYS.?? * Follow Up: 2 - 3 Days (Reason: Telehealth) * Images: * The named appointment provid er may or may not be the originator of this progress note, and it is not deemed complete until electronically signed by the appointment provider. Sign off status: Pending * Provider: Solo Ahn MD Date: Generated for Manuel rasheed/Mojgan/Claudineitting on: 02:55 PM EDT History and Physical Notes * HPI (History of Present Illness) Category Sub-Category Detail Notes COVID-19 Screening Questions Have you had any new onset fever, chills, cough, congestion, sore throat, shortness of breath, muscle aches?: No Examination Category Sub-Category Detail Notes General Examination GENERAL APPEARANCE: pleasant , well nourished, well developed, in no acute distress, calm and relaxed HEAD: atraumatic, normocep halic EYES: eomi, perrla, [...] PULSES: normal BREASTS: no masses palpable b ilaterally MUSCULOSKELETAL: extremities unremark able, no clubbing, cyanosis or edema LYMPH NODES: no enlarged lymph no alex,spleen normal RECTAL EXAM: not examined PSYCH: alert, oriented ORAL CAVITY: normal, unremarkable
[2025-03-03 13:54] LABS: Alanine Aminotransferase 77 U/L (0-31); Albumin Level 4.5 g/dL (3.5-5.0); Alkaline Phosphatase 199 U/L (39-117); Anion Gap 14 (12-20); Aspartate Amino Transferase 84 U/L (5-31); Blood Urea Nitrogen 14 mg/dL (9-16); Calcium 9.6 mg/dL (8.4-10.2); Carbon Dioxide 23 mmol/L (22-29); Chloride 101 mmol/L (96-108); Estimated Glomerular Filt Rate 59; Potassium 3.6 mmol/L (3.3-5.1); Sodium 134 mmol/L (135-145); Total Protein 7.8 g/dL (6.5-8.0)
[2025-03-03 14:06] LABS: Hematocrit 42.2 % (37.0-47.0); Hemoglobin 14.8 g/dl (12.0-16.0); Imm Gran Abs Auto 0.05 X10*3/uL (0.00-0.03); Imm Gran Pct Auto 1.0 % (0.0-0.4); Lymphocytes Absolute Auto 1.2 X10*3/uL (1.2-4.9); MANUAL DIFF FLAG SCAN; Mean Corpuscular HGB Conc 35.1 g/dl (31.0-35.0); Mean Corpuscular Hemoglobin 28.9 pg (27.0-33.0); Mean Corpuscular Volume 82.4 fL (80.0-98.0); NRBC Abs Auto 0.000 X10*3/uL (0.0-0.012); NRBC Pct Auto 0.0 /100WBC (0.0-0.2); Platelet Count 123 X10*3/uL (160-400); Red Blood Count 5.12 X10*6/uL (4.20-5.50); SCAN SMEAR FLAG 1; White Blood Count 5.2 X10*3/uL (4.8-10.8)
[2025-03-03 14:34] LABS: Free T4 (Free Thyroxine) 0.87 ng/dL (0.71-1.85); Thyroid Stimulating Hormone 15.13 uIU/mL (0.32-4.0)
--- OUTSIDE RECORDS SUMMARY | 2025-03-03 14:51 | XMS_ITS | Encounter Summary ---
Author Organization [facility] Address [facility] [address] [place] [address] Phone Care Team Providers Care Tea Tree Farmer Name Role Phone Karan Lazaro MD Primary Care Provider Encounter Details Date Type Department Care Team (Latest Contact Info) Description 04/30/2019 Ancillary Orders Virtual Department [address] [place] [address] Nilesh Monet DC [address] [place] [address] Low back pain with sciatica, sciatica laterality unspecified, unspecified back pain laterality, unspecified chronicity; Lumbar radiculopathy Social History Tobacco Use Types Packs/Day Years Used Date Smoking Tobacco: Never Assessed Comments Unknown Sex and Gender Information Value Date Recorded Sex Assigned at Not on file Legal Sex Female 3:55 PM EST Gender Identity Not on file Sexual Orientation Not on file documented as of this encounter Plan of Treatment Not on file documented as of this encounter Results * XR LUMBOSACRAL SPINE 4 OR MORE VIEWS (04/30/2019 5:48 PM EST) Anatomical Region Laterality Modality L-spine Radiographic Mary ging 04/30/2019 6:12 PM EST Impressions 04/30/2019 6:16 PM EST Grade 1 spondylolisthesis of L4 on L5 likely due to degenerative facet arthropathy. Degenerative disc change at this level. No other explanation for pain. POS - [id number] Narrative 04/30/2019 6:16 PM EST HISTORY: Lower back pain. COMPARISON: None. VIEWS: AP, lateral, bilateral oblique views. FINDINGS: No compression fractures. Approximately 5 mm of spondylolisthesis of L4 on L5. No other subluxations. Evidence of moderate bilateral facet arthropathy at L4-L5. Moderate disc space narrowing at L4-L5. 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 Other disc spaces well-maintained. Minimal degenerative endplate changes. Procedure Note Carlitos Ravi MD - 04/30/2019 HISTORY: Lower back pain. COMPARISON: None. VIEWS: AP, lateral, bilateral oblique views. FINDINGS: No compression fractures. Approximately 5 mm of spondylolisthesis of L4 onL5. No other subluxations. Evidence of moderate bilateral facetarthropathy at L4-L5. Moderate disc space narrowing at L4-L5. Congenitally narrowed disc spaceat L5- S1. Other disc spaces well-maintained. Minimal degenerative endplatechanges. IMPRESSION: Grade 1 spondylolisthesis of L4 on L5 likely due to degenerative facetarthropathy. Degenerative disc change at this level. No other explanationfor pain. POS - [id number] Nilesh Monet DC IMG XR SPINE Final Res ult documented in this encounter Visit Diagnoses Diagnosis Low back pain with sciatica, sciatica laterality unspecified, unspecified back pain laterality, unspecified chronicity Lumbar radiculopathy Thoracic or lumbosacral neuritis or radiculitis, unspecified Low back pain with sciatica, sciatica laterality unspecified, unspecified back pain laterality, unspecified chronicity Lumbar radiculopathy Thoracic or lumbosacral neuritis or radiculitis, unspecified documented in this encounter Care Teams Tea Tree Farmer Relationship Specialty Start Date End Date Karan Lazaro MD PCP - General 04/30/19 documented as of this encounter Additional Source Comments The information contained in this document represents components of the legal health record. It is not the complete legal health record.[facility]
--- OUTSIDE RECORDS SUMMARY | 2025-03-03 14:52 | XMS_ITS | Encounter Summary ---
Author Organization [facility] Address [facility] [employer] [address] [address] Phone Care Team Providers Care Cat Tender Name Role Phone Karan Lazaro MD Primary Care Provider [phone] Encounter Details Date Type Department Care Team (Latest Contact Info) Description 04/30/2019 Transcribe Orders Virtual Department [address] [place] [address] Nilesh Monet DC [address] [place] [address] Low back pain, unspecified back pain laterality, unspecified chronicity, unspecified whether sciatica present (Primary Dx); Right leg pain Social History Tobacco Use Types Packs/Day Years Used Date Smoking Tobacco: Never Assessed Comments Unknown Sex and Gender Information Value Date Recorded Sex Assigned at Not on file Legal Sex Female 3:55 PM EST Gender Identity Not on file Sexual Orientation Not on file documented as of this encounter Plan of Treatment Not on file documented as of this encounter Visit Diagnoses Diagnosis Low back pain, unspecified back pain laterality, unspecified chronicity, unspecified whether sciatica present- Primary Right leg pain Pain in soft tissues of limb documented in this encounter Care Teams Cat Tender Relationship Specialty Start Date End Date Karan Lazaro MD PCP - General 04/30/19 documented as of this encounter Additional Source Comments The information contained in this document represents components of the legal health record. It is not the complete legal health record.[facility]
--- OUTSIDE RECORDS SUMMARY | 2025-03-03 14:54 | XMS_ITS | Clinical Summary ---
Author Organization [facility] Address [facility] [address] [address] Phone Care Team Providers Care Drapery And Upholstery Estimator Name Role Phone Karan Lazaro MD Primary Care Provider [phone] Social History Tobacco Use Types Packs/Day Years Used Date Smoking Tobacco: Never Assessed Education Answer Date Recorded Are you interested in more education? Not on franky e 09/08/2022 Are you concerned about learning? Not on file 09/08/2022 No 09/08/2022 No 09/08/2022 Digital Access Answer Date Recorded No 10/10/2022 No 10/10/2022 Reliable internet access at home? Not on file 10/10/2022 Device with a working camera? Not on file Comments Unknown Sex and Gender Information Value Date Recorded Sex Assigned at Not on file Legal Sex Female 3:55 PM EST Gender Identity Not on file Sexual Orientation Not on file Plan of Treatment Not on file Medical Devices Not on file Insurance [facility] NON NSPG PCP [facility] [employer] NON NSPG PCP [employer] NON NSPG PCP S[employer] CONNE[employer] NON NSPG PCP S[employer] CONNE[employer]CARE [employer] NON NSPG PCP [employer] NON NSPG PCP S[employer] NON NSPG PCP [employer] Member Subscriber Plan / Payer (Ef fective 2019-Present) Name:Lenoflower Kristen Relation to Subscriber:Self Name:Lenoflower Kristen Payer ID:[id number] Type:HMO Address: [place] [id number] [employer] NON NSPG PCP [employer] NON NSPG PCP [employer] Care Teams Drapery And Upholstery Estimator Relationship Specialty Start Date End Date Karan Lazaro MD PCP - General 04/30/19 Additional Source Comments The information contained in this document represents components of the legal health record. It is not the complete legal health record.[facility]
--- OUTSIDE RECORDS SUMMARY | 2025-03-03 14:55 | XMS_ITS | Patient Health Record ---
Author Organization Clem Ahn III, MD Address [address] [place] [address] Care Team Providers Care Yard Switcher Name Role Phone Dr. Clem Ahn III Primary Care Provider [phone] Allergies Allergen (clinical drug ingredient) Drug/Non Drug Allergy documented on EMR Reaction Allergy Type Onset Date Status No Known Drug Allergy Unknown Drug Allergy Active No Known Food Allergy Unknown Drug Allergy Active Results Component Value Reference Range Notes Free T4 (Free Thyroxine) (No t yet reviewed by provider) Interpretation: Performing Lab:[address] [phone] Notes/Report: Free T4 (Free Thyroxine) 0.87 0.71-1.85 ng/dL Complete Blood Count Auto Di ff Reviewed date:07/06/2024 09:12:48 AM Interpretation: Performing Lab:[address] [phone] Notes/Report: White Blood Count 6.2 4.8-10.8 X10*3/uL Red Blood Count 5.17 4.20-5.50 X10*6/uL Hemoglobin 15.2 12.0-16.0 g/dl Hematocrit 44.3 37.0-47.0 % Mean Corpuscular Volume 85.7 80.0-98.0 fL Mean Corpuscular Hemoglobin 29.4 27.0-33.0 pg Mean Corpuscular HGB Conc 34.3 31.0-35.0 g/dl Red Cell Distribution Width 12.0 11.0-16.0 % Platelet Count 274 160-400 X10*3/uL Mean Platelet Volume 9.3 9.4-12.3 fL Neutrophils Percent Auto 45.6 45-73 % Imm Gran Pct Auto 0.5 0.0-0.4 % Lymphocytes Percent Auto 28.5 20-40 % Monocytes Percent Auto 11.0 2-11 % Eosinophils Percent Auto 12.9 0-4 % Basophils Percent Auto 1.5 0-2 % NRBC Pct Auto 0.0 0.0-0.2 /100WBC Neutrophils Absolute Auto 2.8 2.0-8.3 x10*3/u L Imm Gran Abs Auto 0.03 0.00-0.03 X10*3/uL Lymphocytes Absolute Auto 1.8 1.2-4.9 X10*3/u L Monocytes Absolute Auto 0.7 0.1-1.2 X10*3/uL Eosinophils Absolute Auto 0.8 0.0-0.4 X10*3/u L Basophils Absolute Auto 0.1 0.0-0.2 X10*3/uL NRBC Abs Auto 0.000 0.0-0.012 X10*3/uL Comprehensive Healy. Panel Fa st Reviewed date:07/06/2024 09:12:48 AM Interpretation: Performing Lab:[facility], [address] [place] [phone] Notes/Report: Sodium 143 135-145 mmol/L Potassium 4.1 3.3-5.1 mmol/L Chloride 107 96-108 mmol/L Carbon Dioxide 25 22-29 mmol/L Anion Gap 15 12-20 Blood Urea Nitrogen 12 9-16 mg/dL Creatinine 0.80 0.5-1.4 mg/dL Estimated Glomerular Filt Rate > 60 Chronic Kidney Disease: Estimated GFR < 60 mL/min/1.73m2 Severe Kidney Disease: Estimated GFR < 15 mL/min/1.73m2 Glucose Fasting 103 60-99 mg/dL A fasting glucose from 100-125 mg/dl is considered impaired (pre-diabetes). Calcium 9.9 8.4-10.2 mg/dL Bilirubin Total 1.2 0.0-1.0 mg/dL Aspartate Amino Transferase 38 5-31 U/L Alanine Aminotransferase 35 0-31 U/L Total Protein 7.8 6.5-8.0 g/dL Albumin Level 4.3 3.5-5.0 g/dL Alkaline Phosphatase 116 39-117 U/L Ferritin Reviewed date:07/06/2024 09:12:48 AM Interpretation: Performing Lab:[facility], [address] [place] [phone] Notes/Report: Ferritin 199 10-250 ng/mL Lipid Panel Reviewed date:07/06/2024 09:12:48 AM Interpretation: Performing Lab:[address] [phone] Notes/Report: Triglycerides 177 <150 mg/dL Desirable Triglyceride: less than 150 mg/dL Borderline High Triglyceride 150-199 mg/dL High Triglyceride: 200-499 mg/dL Very High Triglyceride: greater than or equal to 5OO mg/dL Cholesterol 255 <200 mg/dL Desirable Cholesterol: less than 200 mg/dL Borderline High Cholesterol: 200-239 mg/dL High Cholesterol: greater than 239 mg/dL LDL Cholesterol Calculated 167 <100 mg/dL Desirable LDL: less than 100 mg/dL Near Optimal/Above Optimal LDL: 110-129 mg/dL Borderline High LDL: 130-159 mg/dL High LDL: 160-189 mg/dL Very High LDL: greater than or equal to 190 mg/dL HDL Cholesterol 53 >40 mg/dL Desirable HDL: greater than 40 mg/dL Note: This HDL assay may give artificially low results in patients with liver disease. Free T4 (Free Thyroxine) Reviewed date:07/06/2024 09:12:48 AM Interpretation: Performing Lab:[address] [phone] Notes/Report: Free T4 (Free Thyroxine) 1.31 0.71-1.85 ng/dL Thyroid Stimulating Hormone Reviewed date:07/06/2024 09:12:48 AM Interpretation: Performing Lab:[address] [phone] Notes/Report: Thyroid Stimulating Hormone 0.13 0.32-4.0 uIU/mL TSH 3rd Generation ([facility]) Complete Blood Count Auto Di ff Reviewed date:12/29/2024 03:50:16 PM Interpretation: Performing Lab:[address] [phone] Notes/Report: White Blood Count 5.5 4.8-10.8 X10*3/uL Red Blood Count 5.01 4.20-5.50 X10*6/uL Hemoglobin 14.5 12.0-16.0 g/dl Hematocrit 42.7 37.0-47.0 % Mean Corpuscular Volume 85.2 80.0-98.0 fL Mean Corpuscular Hemoglobin 28.9 27.0-33.0 pg Mean Corpuscular HGB Conc 34.0 31.0-35.0 g/dl Red Cell Distribution Width 12.3 11.0-16.0 % Platelet Count 248 160-400 X10*3/uL Mean Platelet Volume 9.9 9.4-12.3 fL Neutrophils Percent Auto 56.6 45-73 % Imm Gran Pct Auto 0.5 0.0-0.4 % Lymphocytes Percent Auto 26.9 20-40 % Monocytes Percent Auto 9.5 2-11 % Eosinophils Percent Auto 4.9 0-4 % Basophils Percent Auto 1.6 0-2 % NRBC Pct Auto 0.0 0.0-0.2 /100WBC Neutrophils Absolute Auto 3.1 2.0-8.3 x10*3/u L Imm Gran Abs Auto 0.03 0.00-0.03 X10*3/uL Lymphocytes Absolute Auto 1.5 1.2-4.9 X10*3/u L Monocytes Absolute Auto 0.5 0.1-1.2 X10*3/uL Eosinophils Absolute Auto 0.3 0.0-0.4 X10*3/u L Basophils Absolute Auto 0.1 0.0-0.2 X10*3/uL NRBC Abs Auto 0.000 0.0-0.012 X10*3/uL Comprehensive Healy. Panel Fa st Reviewed date:12/29/2024 03:50:16 PM Interpretation: Performing Lab:[facility], [address] [place] [phone] Notes/Report: Sodium 140 135-145 mmol/L Potassium 4.4 3.3-5.1 mmol/L Chloride 109 96-108 mmol/L Carbon Dioxide 24 22-29 mmol/L Anion Gap 11 12-20 Blood Urea Nitrogen 14 9-16 mg/dL Creatinine 0.77 0.5-1.4 mg/dL Estimated Glomerular Filt Rate > 60 Chronic Kidney Disease: Estimated GFR < 60 mL/min/1.73m2 Severe Kidney Disease: Estimated GFR < 15 mL/min/1.73m2 Glucose Fasting 97 60-99 mg/dL Calcium 9.4 8.4-10.2 mg/dL Bilirubin Total 0.8 0.0-1.0 mg/dL Aspartate Amino Transferase 36 5-31 U/L Alanine Aminotransferase 43 0-31 U/L Total Protein 7.1 6.5-8.0 g/dL Albumin Level 4.3 3.5-5.0 g/dL Alkaline Phosphatase 132 39-117 U/L Lipid Panel Reviewed date:12/29/2024 03:50:16 PM Interpretation: Performing Lab:[address] [phone] Notes/Report: Triglycerides 130 <150 mg/dL Desirable Triglyceride: less than 150 mg/dL Borderline High Triglyceride 150-199 mg/dL High Triglyceride: 200-499 mg/dL Very High Triglyceride: greater than or equal to 5OO mg/dL Cholesterol 276 <200 mg/dL Desirable Cholesterol: less than 200 mg/dL Borderline High Cholesterol: 200-239 mg/dL High Cholesterol: greater than 239 mg/dL LDL Cholesterol Calculated 196 <100 mg/dL Desirable LDL: less than 100 mg/dL Near Optimal/Above Optimal LDL: 110-129 mg/dL Borderline High LDL: 130-159 mg/dL High LDL: 160-189 mg/dL Very High LDL: greater than or equal to 190 mg/dL HDL Cholesterol 54 >40 mg/dL Desirable HDL: greater than 40 mg/dL Note: This HDL assay may give artificially low results in patients with liver disease. Free T4 (Free Thyroxine) Reviewed date:12/29/2024 03:50:16 PM Interpretation: Performing Lab:[address] [phone] Notes/Report: Free T4 (Free Thyroxine) 1.17 0.71-1.85 ng/dL Thyroid Stimulating Hormone Reviewed date:12/29/2024 03:50:16 PM Interpretation: Performing Lab:[facility], [address] [place] [phone] Notes/Report: Thyroid Stimulating Hormone 0.86 0.32-4.0 uIU/mL TSH 3rd Generation ([facility]) Complete Blood Count Auto Di ff (Not yet reviewed by provider) Interpretation: Performing Lab:[facility], [address] [place] [phone] Notes/Report: White Blood Count 5.2 4.8-10.8 X10*3/uL Red Blood Count 5.12 4.20-5.50 X10*6/uL Hemoglobin 14.8 12.0-16.0 g/dl Hematocrit 42.2 37.0-47.0 % Mean Corpuscular Volume 82.4 80.0-98.0 fL Mean Corpuscular Hemoglobin 28.9 27.0-33.0 pg Mean Corpuscular HGB Conc 35.1 31.0-35.0 g/dl Red Cell Distribution Width 12.7 11.0-16.0 % Platelet Count 123 160-400 X10*3/uL Mean Platelet Volume 11.1 9.4-12.3 fL Neutrophils Percent Auto 60.7 45-73 % Imm Gran Pct Auto 1.0 0.0-0.4 % Lymphocytes Percent Auto 22.7 20-40 % Monocytes Percent Auto 13.6 2-11 % Eosinophils Percent Auto 0.8 0-4 % Basophils Percent Auto 1.2 0-2 % NRBC Pct Auto 0.0 0.0-0.2 /100WBC Neutrophils Absolute Auto 3.1 2.0-8.3 x10*3/u L Imm Gran Abs Auto 0.05 0.00-0.03 X10*3/uL Lymphocytes Absolute Auto 1.2 1.2-4.9 X10*3/u L Monocytes Absolute Auto 0.7 0.1-1.2 X10*3/uL Eosinophils Absolute Auto 0.0 0.0-0.4 X10*3/u L Basophils Absolute Auto 0.1 0.0-0.2 X10*3/uL NRBC Abs Auto 0.000 0.0-0.012 X10*3/uL White Blood Count 5.2 4.8-10.8 X10*3/uL Red Blood Count 5.12 4.20-5.50 X10*6/uL Hemoglobin 14.8 12.0-16.0 g/dl Hematocrit 42.2 37.0-47.0 % Mean Corpuscular Volume 82.4 80.0-98.0 fL Mean Corpuscular Hemoglobin 28.9 27.0-33.0 pg Mean Corpuscular HGB Conc 35.1 31.0-35.0 g/dl Red Cell Distribution Width 12.7 11.0-16.0 % Platelet Count 123 160-400 X10*3/uL Mean Platelet Volume 11.1 9.4-12.3 fL Neutrophils Percent Auto 60.7 45-73 % Imm Gran Pct Auto 1.0 0.0-0.4 % Lymphocytes Percent Auto 22.7 20-40 % Monocytes Percent Auto 13.6 2-11 % Eosinophils Percent Auto 0.8 0-4 % Basophils Percent Auto 1.2 0-2 % NRBC Pct Auto 0.0 0.0-0.2 /100WBC Neutrophils Absolute Auto 3.1 2.0-8.3 x10*3/u L Imm Gran Abs Auto 0.05 0.00-0.03 X10*3/uL Lymphocytes Absolute Auto 1.2 1.2-4.9 X10*3/u L Monocytes Absolute Auto 0.7 0.1-1.2 X10*3/uL Eosinophils Absolute Auto 0.0 0.0-0.4 X10*3/u L Basophils Absolute Auto 0.1 0.0-0.2 X10*3/uL NRBC Abs Auto 0.000 0.0-0.012 X10*3/uL CORRECTED REPORT CORRECTED REPORT Erythrocyte Sedimentation Ra te (Not yet reviewed by provider) Interpretation: Performing Lab:[facility], [address] [place] [phone] Notes/Report: Erythrocyte Sedimentation Rate 14 0-20 MM/HR Patients with polycythemia and many hemoglobin abnormalities may have depressed sed rates whereas patients with anemia may have elevated sed rates. Comprehensive Met. Panel (No t yet reviewed by provider) Interpretation: Performing Lab:[facility], [address] [place] [phone] Notes/Report: Sodium 134 135-145 mmol/L Potassium 3.6 3.3-5.1 mmol/L Slight Hemolysis.Interpret result with caution. Chloride 101 96-108 mmol/L Carbon Dioxide 23 22-29 mmol/L Anion Gap 14 12-20 Blood Urea Nitrogen 14 9-16 mg/dL Creatinine 0.98 0.5-1.4 mg/dL Estimated Glomerular Filt Rate 59 Chronic Kidney Disease: Estimated GFR < 60 mL/min/1.73m2 Severe Kidney Disease: Estimated GFR < 15 mL/min/1.73m2 Glucose Random 95 60-115 mg/dL Calcium 9.6 8.4-10.2 mg/dL Bilirubin Total 1.7 0.0-1.0 mg/dL Aspartate Amino Transferase 84 5-31 U/L Slight Hemolysis.Interpret result with caution. Alanine Aminotransferase 77 0-31 U/L Total Protein 7.8 6.5-8.0 g/dL Albumin Level 4.5 3.5-5.0 g/dL Alkaline Phosphatase 199 39-117 U/L Thyroid Stimulating Hormone (Not yet reviewed by provider) Interpretation: Performing Lab:[facility], [address] [place] [phone] Notes/Report: Thyroid Stimulating Hormone 15.13 0.32-4.0 uIU/mL Note: A sustained TSH level above 2.5 uIU/mL may warrant further investigation. TSH 3rd Generation ([facility]) SLIDE REVIEW (Not yet review ed by provider) Interpretation: Performing Lab:[facility], [address] [place] [phone] Notes/Report: SLIDE REVIEW VERIFIED Reason For Referral Reason right shoulder pain Diagnosis 1 Acute pain of right shoulder (M25.511) Referral Organization Clem Ahn III, MD Referring Provider First Name Clem Referring Provider Last Name Anabelle Referring Provider Speciality Internal M edicine Referred Provider [facility], Orthopedic Surgeons Referred Provider Specialty Orthopedic S urgery General Notes Keily Leighannlena MCUNLTY 07/14 11:11:30 AM > Called pt she stated she did not have shoulder x ray and wants to hold off on both x ray and referral to ortho . Referral Priority Routine Reason Consult and Treat Screening Colonoscopy Diagnosis 1 Screen for colon can cer (Z12.11) Referral Organization Clem Ahn III, MD Referring Provider First Name Clem Referring Provider Last Name Anabelle Referring Provider Speciality Internal M edicine Referred Provider Clem Johnson Referred Provider Specialty Gastroentero logy General Notes Maylin Kimi 01/05/2025 10:48:47 AM > Referral and progress note faxed, Keily Leighann CMA 2025 10:06:58 AM >Emperatriz from Dr Fuller and Alex office they tried to call patient three times and pt has not returned the call . I called patient myself and LM to have her call our office back to encourage her to call to set up this appt Referral Priority Routine Medications Medication SIG (Take, Route, Frequency, Duration) Notes Start Date End Date Status Levothyroxine Sodium 112 MCG TAKE 1 TABL ET BY MOUTH EVERY DAY IN THE MORNING FOR 90 DAYS Active Anastrozole 1 MG Oral Act brandi Immunizations Vaccine Route Administration Date Status Comme nts COVID PFIZER Unknown 07/27/2020 Administered COVID PFIZER Unknown 07/06/2020 Administered Social History Tobacco Use: Social History Observation [...] Never (0 point) Points 2 Interpretation Negative Problems Problem Type SNOMED Code ICD Code Onset Dates Problem Status W/U Status Risk Notes Problem [id number] Obesity (BMI 30.0-34.9) (E66.9) Active confirmed Her weight has been stable with a BMI in the obese range. We discussed lifestyle modification and diet at length today. We made a plan to lose weight at a rate of 1 pound per week. Problem Hypertension (16311926) Hypertension (I10) Active confirmed Her blood pressure is in the normal devlin. She has been compliant with her medications. We stressed the wisdom of progressive weight loss and sodium restriction and regular physical activity. Problem 265006594 Malignant neoplasm of unspecified site of left female breast (C50.912) Active confirmed Both breast s were unremarkable except for scars. There is no sign of recurrent disease or new primary. Problem [id number] Lumbago with sciatica, right side (M54.41) Active confirmed She will continue with conservative therapy. She is improving rapidly with rest heat and ibuprofen. Problem 912192798 Lumbago with sciatica, left side (M54.42) Active confirmed She will continue conservative therapy as she is improving rapidly. 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 Problem 642630858 Acquired hypothyroidism (E03.9) Active confirmed Her free T4 level is now in the normal range. Her TSH is also normal. He feels euthyroid. Her heart rate is normal and her weight is stable. Her thyroid function tests will be followed and her dose will be optimized. Problem 568249408 Iron deficiency anemia due to chronic blood loss (D50.0) Active confirmed She is no longer iron deficient. This will be monitored however. Problem 156585182 Anemia, unspecified type (D64.9) Active confirmed She has been continued on her iron supplements. Problem 05022052 Hyperlipidemia, unspecified hyperlipidemia type (E78.5) Active confirmed Her total cholesterol is 276 with a triglycerides of 1:30 HDL 54 and LDL 196. As I have before, I offered to give her a statin medication. She declined vehemently states she does not wish to take a statin medication for her cholesterol. Problem 7434042917 Acute pain of right shoulder (M25.511) Active confirmed I have ordered an x-ray of the right shoulder. This appears to the rotator cuff tear. I have referred her to orthopedic surgery. Vital Signs Heart Rate 96 /min 03/03/2025 Temperature 98.3 degrees Fahrenheit 03/03/2025 Respiratory Rate 16 /min 03/03/2025 Blood pressure diastolic 70 mm Hg 12/30/2024 Height 63 in 03/03/2025 Blood pressure systolic 130 mm Hg 12/30/2024 Weight 181 lbs 03/03/2025 BMI 32.06 kg/m2 03/03/2025 Encounters Encounter Location Date Provider Diagnosis Clem Ahn III, MD [address] [place] [address] [place] [address] 03/03/2025 Clem Greerrne Acquired hypothyroid ism E03.9 ; Hyperlipidemia, unspecified hyperlipidemia type E78.5 ; Obesity (BMI 30.0-34.9) E66.9 and Hypertension I10 Clem Ahn III, MD [address] [place] [address] [place] [address] 07/07/2024 Clem Newmanne Acquired hypothyroid ism E03.9 ; Acute pain of right shoulder M25.511 ; Hyperlipidemia, unspecified hyperlipidemia type E78.5 and Iron deficiency anemia due to chronic blood loss D50.0 Clem Ahn III, MD [address] [place] [address] [place] [address] 12/30/2024 Clem Greerrne Acquired hypothyroid ism E03.9 ; Obesity (BMI 30.0-34.9) E66.9 ; Hyperlipidemia, unspecified hyperlipidemia type E78.5 ; Anemia, unspecified type D64.9 ; Malignant neoplasm of unspecified site of left female breast C50.912 ; Breast screening Z12.31 and Hypertension I10 Clem Ahn III, MD [address] [place] [address] [place] [address] 07/14/2024 Clem Ahn Assessments Encounter Date Diagnosis (ICD Code) Assessment Notes Treat ment Notes Treatment Clinical Notes 03/03/2025 Acquired hypothyroidism (ICD-10 - E03.9) Her free T4 level is now in the normal range. Her TSH is low normal. He feels euthyroid. Her heart rate is normal and her weight is stable. Her thyroid function tests will be followed and her dose will be optimized. 07/07/2024 Acquired hypothyroidism (ICD-10 - E03.9) Her [...] I have referred her to orthopedic surgery. 12/30/2024 Obesity (BMI 30.0-34.9) (ICD-10 - E66.9) Her weight has been stable with a BMI in the obese range. We discussed lifestyle modification and diet at length today. We made a plan to lose weight at a rate of 1 pound per week. 12/30/2024 Acquired hypothyroidism (ICD-10 - E03.9) Her free T4 level is now in the normal range. Her TSH is also normal. He feels euthyroid. Her heart rate is normal and her weight is stable. Her thyroid function tests will be followed and her dose will be optimized. 03/03/2025 Hyperlipidemia, unspecified hyperlipidemia type (ICD-10 - E78.5) 07/07/2024 Hyperlipidemia, unspecified hyperlipidemia type (ICD-10 - E78.5) 12/30/2024 Hyperlipidemia, unspecified hyperlipidemia type (ICD-10 - E78.5) Her total cholesterol is 276 with a triglycerides of 1:30 HDL 54 and LDL 196. As I have before, I offered to give her a statin medication. She declined vehemently states she does not wish to take a statin medication for her cholesterol. 03/03/2025 Obesity (BMI 30.0-34.9) (ICD-10 - E66.9) 07/07/2024 Iron deficiency anemia due to chronic blood loss (ICD-10 - D50.0) She is no longer iron deficient. This will be monitored however. 12/30/2024 Anemia, unspecified type (ICD-10 - D64.9) She has been continued on her iron supplements. 03/03/2025 Hypertension (ICD-10 - I10) 12/30/2024 Malignant neoplasm o f unspecified site [...] and regular physical activity. Plan Of Treatment Pending Test Test Name Order Date PROFILE, FASTING (COMPREHENSIVE METABOLI C) 03/17/2021 PROFILE, FASTING (COMPREHENSIVE METABOLI C) 12/16/2020 PROFILE, FASTING (COMPREHENSIVE METABOLI C) 11/12/2017 PROFILE, FASTING (COMPREHENSIVE METABOLI C) 12/26/2023 PROFILE, FASTING (COMPREHENSIVE METABOLI C) 12/20/2022 PROFILE, FASTING (COMPREHENSIVE METABOLI C) 07/16/2020 PROFILE, FASTING (COMPREHENSIVE METABOLI C) 09/15/2021 PROFILE, FASTING (COMPREHENSIVE METABOLI C) 07/07/2024 PROFILE, FASTING (COMPREHENSIVE METABOLI C) 02/11/2020 PROFILE, FASTING (COMPREHENSIVE METABOLI C) 12/30/2024 PROFILE, RANDOM (COMPREHENSIVE METABOLIC ) 03/03/2025 PROFILE, RANDOM (COMPREHENSIVE METABOLIC ) 08/12/2019 PROFILE, RANDOM (COMPREHENSIVE METABOLIC ) 08/06/2018 PROFILE, RANDOM (COMPREHENSIVE METABOLIC ) 08/09/2020 LIPID PANEL 03/17/2021 LIPID PANEL 12/16/2020 LIPID PANEL 11/12/2017 LIPID PANEL 08/12/2019 LIPID PANEL 08/09/2020 LIPID PANEL 12/20/2022 LIPID PANEL 07/16/2020 LIPID PANEL 09/15/2021 LIPID PANEL 02/11/2020 FREE T4 (FT4) 02/11/2020 FREE T4 (FT4) 12/16/2020 FREE T4 (FT4) 08/06/2018 FREE T4 (FT4) 08/12/2019 FREE T4 (FT4) 12/20/2022 FREE T4 (FT4) 07/16/2020 FREE T4 (FT4) 09/15/2021 TSH (THYROID STIMULATING HORMONE) 2022 TSH (THYROID STIMULATING HORMONE) 2020 TSH (THYROID STIMULATING HORMONE) 2021 TSH (THYROID STIMULATING HORMONE) 2019 TSH (THYROID STIMULATING HORMONE) 2024 TSH (THYROID STIMULATING HORMONE) 2020 TSH (THYROID STIMULATING HORMONE) 2023 TSH (THYROID STIMULATING HORMONE) 2024 TSH (THYROID STIMULATING HORMONE) 2018 TSH (THYROID STIMULATING HORMONE) 2024 TSH (THYROID STIMULATING HORMONE) 2019 FERRITIN 04/08/2018 FERRITIN 08/12/2019 FERRITIN 02/08/2018 FERRITIN 12/14/2017 FERRITIN 08/06/2018 B12 12/14/2017 FOLATE 12/14/2017 CBC w DIFF 12/30/2024 CBC w DIFF 08/06/2018 CBC w DIFF 04/08/2018 CBC w DIFF 12/20/2022 CBC w DIFF 12/14/2017 CBC w DIFF 08/12/2019 CBC w DIFF 07/16/2020 CBC w DIFF 09/15/2021 CBC w DIFF 02/11/2020 CBC w DIFF 03/17/2021 CBC w DIFF 11/12/2017 CBC w DIFF 03/03/2025 CBC w DIFF 12/16/2020 CBC w DIFF 02/08/2018 CBC w DIFF 08/09/2020 CBC w DIFF 07/07/2024 SED RATE (ESR) 03/03/2025 RETICULOCYTE COUNT,CORRECTED 12/14/2017 XR SHOULDER RT 2 VIEWS 07/07/2024 CBC WITH AUTO DIFF 12/26/2023 SARS COV2 RNA RT PCR 09/10/2019 Complete Blood Count Auto Diff Erythrocyte Sedimentation Rate 5 Comprehensive Met. Panel 03/03/2025 Ferritin 12/26/2023 Lipid Panel 07/07/2024 Lipid Panel 12/26/2023 Lipid Panel 12/30/2024 Free T4 (Free Thyroxine) 07/07/2024 Free T4 (Free Thyroxine) 12/26/2023 Free T4 (Free Thyroxine) 12/30/2024 Free T4 (Free Thyroxine) 03/03/2025 Thyroid Stimulating Hormone 03/03/2025 MM tomosynthesis screening BI 12/30/2024 SLIDE REVIEW 03/03/2025 Next Appt Details Provider Name:Clem Ahn , 03/06/2025 03:15:00 PM, [address] [place] [address] [place], [address], Provider Name:Clem Ahn , 05/05/2025 04:00:00 PM, [address] [place] [address] [place], [address], Provider Name:lCem Ahn , 01/04/2026 04:00:00 PM, [address] [place] [address] [place], [address], Insurance Providers Payer Name Payer Address Payer Phone Subscriber Number Group Number Insured Name Patient Relationship to Insured Coverage Start Date Coverage End Date [employer] [address] [address] [place] [address] [id number] ANGELA LERMA Self - patient is the insured 2024 Medical (General) History Medical History History ICD Code Hypothyroidism, unspecified type E03.9 Hyperlipidemia, unspecified hyperlipidem ia type E78.5 cellulitis left leg July 2017 tick bite July 2017 posterior left thig h overweight, BMI 29 miscarriage 2005 anemia November 2017 septate uterus 2004. By ultrasound benign lesion left eyelid mucous cyst finger [id number] ER, 9 mm, triple po sitive, node-negative, unifocal invasive ductal carcinoma left breast, 10-16-20 Osteopenia, Arm and Shoulder Pain Surgical History Surgery Date(Month/Year) No history biopsy left breast, lumpectomy and senti sandi node biopsy 03/2020 hysterectomy 12/2017 tonsillectomy hysteroscopy for thickened e ndometrial stripe, normal secretory endometrium 2004 G2 by , one SAB 09/2004 tonsillectomy age 19 Hospitalization History Reason Date(Month/Year) No history
--- OUTSIDE RECORDS SUMMARY | 2025-03-03 14:56 | XMS_ITS | Clinical Summary ---
Author Organization [facility] Address [address] [place] [address] Care Team Providers Care Lead Driver Name Role Phone Clem Ahn MD Primary Care Provider [phone] Allergies No known active allergies Medications Medication [...] 75 08/03/2023 9:25 AM EDT Temperature 36.2 C (97.2 F) 08/03/2023 9:25 AM EDT Respiratory Rate 16 01/07/2021 8:36 AM EDT [...] Hepatitis C Screening 1970 COVID-19 Vaccine (#1) 1970 Depression Screening 1982 Preventative Health Evaluation 01/29/1988 DTap / Tdap / Td (1 - Tdap) 1989 Cervical Cancer Screening (P ap Smear) 1991 Colon Cancer Screening (Colonoscopy) 2015 Breast Cancer Screening (Mammogram) 01/29/2020 Shingrix-Zoster Vaccine (1 of 2) 01/29/2020 Influenza Vaccine (#1) 2025 Pneumococcal Vaccine Aged Out No long er eligible based on patient's age to complete this topic RSV Ped < 20 months Aged Out No longe r eligible based on patient's age to complete this topic Care Teams Lead Driver Relationship Specialty Start Date End Date Clem Ahn MD [facility] [address] [phone] PCP - General Oncology 04/15/20
== END 2025-03-03 11:32 | disposition home or self-care (01) ==
LOC: HO.10HDL 11:31
PROVIDERS: Visit Provider Internal Medicine Medical Oncology
DX: E03.9 Hypothyroidism, unspecified (principal); E78.5 Hyperlipidemia, unspecified; E66.9 Obesity, unspecified
CPT/HCPCS: 36415; 80053; 84439; 84443; 85025; 85652

== ENCOUNTER 2025-03-11 08:24 | Outpatient (REF) | payer OTHER, SELFPAY ==
--- OUTSIDE RECORDS SUMMARY | 2024-04-01 12:15 | XMS_ITS ---
Author Organization Clem Ahn III, MD Address [address] [place] [facility] [place] [address] Care Team Providers Care Delinquency Counselor Name Role Phone Dr. Clem Ahn III Primary Care Provider [phone] REASON FOR VISIT Follow up Social History Sex Assigned At : Social History Observation Description Sex Assigned At Female Encounters Encounter Location Date Provider Diagnosis Clem Ahn III, MD [address] [place] [address] [address] [place] [facility] [place] [address] 04/01/2024 Clem Ahn Plan Of Treatment Next Appt Details Provider Name:Clem Ahn , 04/01/2025 10:15:00 AM, [address] [place] [address] [place], [address], Provider Name:Clem Ahn , 05/05/2025 04:00:00 PM, [address] [place] [address] [place], [address], Provider Name:Clem Ahn , 01/04/2026 04:00:00 PM, [address] [place] [address] [place], [address], Progress Notes * ANGELA LERMADOB:[birth year] (55 yo F)Acc No.[id number]:04/01/2024 Progress Notes Patient: Aliza ROCKANGELA PRESCOTT Provider: Solo Ahn MD :1970 A ge:54 Y S ex:Female Date:04/01/2024 Address: [id number] Subjective: * Chief Complaints: * 1 . [...] Ahn MD Date: 06/01/2023 Generated for Manuel rasheed/Mojgan/Cucosmitting on: 08:54 AM EDT
--- OUTSIDE RECORDS SUMMARY | 2024-05-28 12:00 | XMS_ITS ---
Author Organization Clem Ahn III, MD Address [address] [place] [facility] [place] [address] Care Team Providers Care Manager Revenue Name Role Phone Dr. Clem Ahn III Primary Care Provider [phone] REASON FOR VISIT Follow up Social History Sex Assigned At : Social History Observation Description Sex Assigned At Female Encounters Encounter Location Date Provider Diagnosis Clem Ahn III, MD [address] [place] [address] [address] [place] [facility] [place] [address] 05/28/2024 Clem Ahn Plan Of Treatment Next Appt Details Provider Name:Clem Ahn , 04/01/2025 10:15:00 AM, [address] [place] [address] [place], [address], Provider Name:Clem Ahn , 05/05/2025 04:00:00 PM, [address] [place] [address] [place], [address], Provider Name:Clem Ahn , 01/04/2026 04:00:00 PM, [address] [place] [address] [place], [address], Progress Notes * ANGELA LERMADOB:[birth year] (55 yo F)Acc No.[id number]:05/28/2024 Progress Notes Patient: Aliza ROCKANGELA PRESCOTT Provider: Solo Ahn MD :1970 A ge:54 Y S ex:Female Date:05/28/2024 Address[id number] Subjective: * Chief Complaints: * 1 . Follow up. * Medical History: Objective: * Vitals: Assessment: Plan: * Treatment: * Images: * The named appointment provid er may or may not be the originator of this progress note, and it is not deemed complete until electronically signed by the appointment provider. Sign off status: Pending * Provider: Solo Ahn MD Date: 0 05/28/2024 Generated for Manuel rasheed/Mojgan/Claudineitting on: 08:53 AM EDT
--- OUTSIDE RECORDS SUMMARY | 2024-07-07 11:45 | XMS_ITS ---
Author Organization Clem Ahn III, MD Address [address] [address] Care Team Providers Care Photographic Enlarger Operator Name Role Phone Dr. Clem Ahn III [...] Provider Speciality Internal M edicine Referred Provider [facility] er, Orthopedic Surgeons Referred Provider Specialty Orthopedic S urgery General Notes Leighann Michaud RADIO MACHINIST 07/14 11:11:30 AM > Called pt she [...] Problem Status W/U Status Risk Notes Problem [id number] Acute pain of right shoulder (M25.511) Active [...] 07/07/2024 Encounters Encounter Location Date Provider Diagnosis Clem Ahn III, MD [address] [place] [address] [place] [address] 07/07/2024 Clem Ahn Acquired hypothyroid ism E03.9 [...] 07/07/2024, right sh oulder pain, [facility] Next Appt Details Follow Up: 3 Months, In abou t 3 months, Reason: ov review labs, Follow-up on arm and shoulder pain and osteopenia Provider Name:Clem Ahn , 04/01/2025 10:15:00 AM, [address] [place] [address] [address] [place], [place], [address], Provider Name:Clem Ahn , 05/05/2025 04:00:00 PM, [address] [place] [address] [place], [place], [address], Provider Name:Clem Ahn , 01/04/2026 04:00:00 PM, [address] [place] [address] [place], [place], [address], Progress Notes * ANGELA HASSAN JuancarlosDOB:[birth year] (54 yo F)Acc No.[id number]:07/07/2024 Progress Notes Patient: ANGELA MAYFIELD Provider: Solo Ahn MD :1970 A ge:54 Y S ex:Female Date:07/07/2024 Address:[address] [place] [id number] Subjective: * Chief Complaints: * R ight [...] Gomez for many years. She works at [employer] and in [place], [place]. They have several children who are [...] 0.000 (Ref Range: 0.0-0.012 X10*3/uL) * Lab:[facility] [place] * Collection Date 06/30/2024 [...] Date & Time - 06/30/2024 07:48 AM)?ValueReference Range?[id number] - ng/mL * Lab:Lipid Panel * Collection [...] SHOULDER RT 2 VIEWS Referral To:[facility] Orthopedic Surgery Reason:right shoulder pain 3. [...] 0 07/07/2024 Generated for Manuel rasheed/Mojgan/Lamin on: 08:55 AM EDT History and Physical Notes * HPI [...] Provider Referred Provider Not es 07/07/2024 Anabelle [facility], Orthopedic Surgeons right shoulder pain
--- OUTSIDE RECORDS SUMMARY | 2024-07-14 07:13 | XMS_ITS ---
Author Organization Clem Ahn III, MD Address [address] [place] [address] Care Team Providers Care Solar Installation Foreman Name Role Phone Dr. Clem Ahn III Primary Care Provider REASON FOR VISIT Message Social History Sex Assigned At : Social History Observation Description Sex Assigned At Female Encounters Encounter Location Date Provider Diagnosis Clem Ahn III, MD [address] [place] [address] [place] [address] 07/14/2024 Clem Ahn Plan Of Treatment Next Appt Details Provider Name:Clem Ahn , 04/01/2025 10:15:00 AM, [address] [place] [address] [place], [address], Provider Name:Clem Ahn , 05/05/2025 04:00:00 PM, [address] [place] [address] [place], [address], Provider Name:Clem Ahn , 01/04/2026 04:00:00 PM, [address] [place] [address] [place], [address], Progress Notes * ANGELA LERMADOB:[birth year] (54 yo F)Acc No.[id number]:07/14/2024 Patient: Aliza ROCKANGELA PRESCOTT :1970 A ge:54 Y S ex:Female Address: [address], [facility] [place], [address] * true * Date: Generated for Manuel rasheed/Mojgan/Lamin on: 08:54 AM EDT
--- OUTSIDE RECORDS SUMMARY | 2024-09-29 10:45 | XMS_ITS ---
Author Organization Clem Ahn III, MD Address [address] [place] [address] Care Team Providers Care Astronomy Teacher Name Role Phone Dr. Clem Ahn III Primary Care Provider [phone] REASON FOR VISIT Follow up Social History Sex Assigned At : Social History Observation Description Sex Assigned At Female Encounters Encounter Location Date Provider Diagnosis Clem Ahn III, MD [address] [place] [address] [address] [place] [facility] [place] [address] 09/29/2024 Clem Ahn Plan Of Treatment Next Appt Details Provider Name:Clem Ahn , 04/01/2025 10:15:00 AM, [address] [place] [address] [place], [address], Provider Name:Clem Ahn , 05/05/2025 04:00:00 PM, [address] [place] [address] [place], [address], Provider Name:Clem Ahn , 01/04/2026 04:00:00 PM, [address] [place] [address] [place], [address], Progress Notes * ANGELA LERMADOB:[birth year] (55 yo F)Acc No.[id number]:09/29/2024 Progress Notes Patient: Aliza ROCKANGELA PRESCOTT Provider: Solo Ahn MD :1970 A ge:54 Y S ex:Female Date:09/29/2024 Address: [facility] Subjective: * Chief Complaints: * 1 [...] 09/29/2024 Generated for Manuel rasheed/Mojgan/Claudineitting on: 1 08:54 AM EDT
--- OUTSIDE RECORDS SUMMARY | 2024-12-30 12:00 | XMS_ITS ---
Author Organization Clem Ahn III, MD Address [address] [place] [address] Care Team Providers Care Emotionally Impaired Teacher Name Role Phone Dr. Clem Ahn III Primary Care Provider Allergies Allergen (clinical drug ingredient) Drug/Non Drug Allergy documented on EMR Reaction Allergy Type Onset Date Status No Known Drug Allergy Unknown Drug Allergy Active No Known Food Allergy Unknown Drug Allergy Active Reason For Referral Reason Consult and Treat Screening Colonoscopy Diagnosis 1 Screen for colon can cer (Z12.11) Referral Organization Celm Ahn III, MD Referring Provider First Name [...] Date Provider Diagnosis Clem Ahn III, MD [address] [place] [address] [place] [address] 12/30/2024 Clem Ahn Acquired hypothyroid ism E03.9 [...] Name:Clem Ahn , 04/01/2025 10:15:00 AM, [address] [facility] [address], [place], [address], Provider Name:Clem Ahn , 05/05/2025 04:00:00 PM, [address] [facility] [address], [address], Provider Name:Clem Ahn , 01/04/2026 04:00:00 PM, [address] [facility] [address], [address], Progress Notes * ANGELA HASSAN JDOB:[birth year] (54 yo F)Acc No.[id number]:12/30/2024 Progress Notes Patient: ANGELA MAYFIELD Provider: Solo Ahn MD :1970 A ge:54 Y S ex:Female Date:12/30/2024 Address:[address] [place], [place] [id number] Subjective: * Chief Complaints: * A nnual exam * HPI: D epression Screening: S he returns at the age of 54 for her annual physical examination. She is followed here for hyperlipidemia, hypothyroidism, iron deficiency, obesity, left breast cancer and hypertension. She has been referred to Dr. Johnson for her first screening colonoscopy. She is due for a mammogram at [facility] which we have scheduled. He denies any [...] Gomez for many years. She works at [employer] in [place], [place]. They have several children who are [...] MD Date: 0 12/30/2024 Generated for Ulyssesi kathya/Tamyg/eTransmitting on: 1 08:55 AM EDT History and Physical Notes [...]
--- OUTSIDE RECORDS SUMMARY | 2025-03-03 07:00 | XMS_ITS ---
Author Organization Clem Ahn III, MD Address [address] [place] [address] Care Team Providers Care Black Ash Burner Operator Name Role Phone Dr. Clem Ahn III Primary Care Provider [phone] Allergies Allergen (clinical drug ingredient) Drug/Non Drug Allergy documented on EMR Reaction Allergy Type Onset Date Status No Known Drug Allergy Unknown Drug Allergy Active No Known Food Allergy Unknown Drug Allergy Active Results Component Value Reference Range Notes Free T4 (Free Thyroxine) Reviewed date:03/04/2025 09:53:26 AM Interpretation: Performing Lab:[facility], [address] [place] [id number] Notes/Report: Free T4 (Free Thyroxine) 0.87 0.71-1.85 [...] Problem Status W/U Status Risk Notes Problem [id number] Abnormal liver function tests (R79.89) Active confirmed [...] Provider Diagnosis Clem Ahn III, MD [address] [place] [address] [place] [address] 03/03/2025 Clem Ahn Acquired hypothyroid ism E03.9 [...] Name:Clem Ahn , 04/01/2025 10:15:00 AM, [address] [place] [address] [place], [address], Provider Name:Clem Ahn , 05/05/2025 04:00:00 PM, [address] [place] [address] [place], [address], Provider Name:Clem Ahn , 01/04/2026 04:00:00 PM, [address] [place] [address] [place], [address], Progress Notes * ANGELA HASSANDOB:[birth year] (55 yo F)Acc No.[id number]:03/03/2025 Progress Notes Patient: ANGELA MAYFIELD Provider: Solo Ahn MD :1970 A ge:55 Y S ex:Female Date:03/03/2025 Address: [place] , [facility] Subjective: * Chief Complaints: * F eeling [...] Gomez for many years. She works at [employer] and in [place], [place]. They have several children who are [...] Clinical Info: PLEASE FAX COMPLETED RESULTS TO [phone] * Lab:Thyroid Stimulating Horm one * Collection Date 03/03/2025 12/26/2024 06/30/2024 Collection Time 11:37 AM 07:36 AM 07:48 AM Order Date 03/03/2025 12/26/2024 06/30/2024 Thyroid Stimulating Hormone 15.13 H (Ref Range: 0.32-4.0 uIU/mL) 0.86 (Ref Range: 0.32-4.0 uIU/mL) 0.13 L (Ref Range: 0.32-4.0 uIU/mL) ???Lab:Erythrocyte Sedimentation Rate (Order Date - 03/03/2025) (Collection Date & Time - 03/03/2025 11:37 AM)?ValueReference Range?Erythrocyte Sedimentation [id number] - MM/HR * Lab:Comprehensive Met. Panel * [...] Provider: Solo Ahn MD Date: Generated for Ulyssesi ng/Fazurig/eTransmitting on: 08:55 AM EDT History and Physical [...]
--- OUTSIDE RECORDS SUMMARY | 2025-03-04 09:57 | XMS_ITS ---
Author Organization Clem Ahn III, MD Address [address] [place] [address] Care Team Providers Care Juvenile Court Judge Name Role Phone Dr. Clem Ahn III Primary Care Provider Medications Medication SIG (Take, Route, Frequency, Duration) Notes Start Date End Date Status Levothyroxine Sodium 100 MCG 1 tablet Or ally Once a day for 90 days 03/04/2025 Active Social History Sex Assigned At : Social History Observation Description Sex Assigned At Female Encounters Encounter Location Date Provider Diagnosis Clem Ahn III, MD [address] [place] [address] [place] [phone] 03/04/2025 Clem Ahn Plan Of Treatment Medication Medication Name Sig Start Date Stop Date Notes Levothyroxine Sodium 100 MCG 1 tablet Or ally Once a day for 90 days 03/04/2025 Next Appt Details Provider Name:Clem Ahn , 04/01/2025 10:15:00 AM, [address] [place] [address] [place], [address], Provider Name:Clem Ahn , 05/05/2025 04:00:00 PM, [address] [place] [address] [place], [address], Provider Name:Clem Ahn , 01/04/2026 04:00:00 PM, [address] [place] [address] [place], [address], Progress Notes * ANGELA HASSAN JDOB:[birth year] (55 yo F)Acc No.[id number]:03/04/2025 Patient: ANGELA MAYFIELD :1970 A ge:55 Y S ex:Female Address:[address] [place] [address] * Refills Start Levothyroxine Sodium Tablet, 100 MCG, Orally, 90 Tablet, 1 tablet, Once a day, 90 days, Refills=3 * true * Date: Generated for Manuel rasheed/Mojgan/Claudineitting on: 08:55 AM EDT
--- OUTSIDE RECORDS SUMMARY | 2025-03-04 10:03 | XMS_ITS ---
Author Organization Clem Ahn III, MD Address [address] [address] Care Team Providers Care Internal Control Specialist Name Role Phone Dr. Clem Ahn III Primary Care Provider REASON FOR VISIT Lab order Social History Sex Assigned At : Social History Observation Description Sex Assigned At Female Encounters Encounter Location Date Provider Diagnosis Clem Ahn III, MD [address] [place] [address] [place] [address] 03/04/2025 Clem Ahn Acquired hypothyroid ism E03.9 [...] Provider Name:Clem Ahn , 04/01/2025 10:15:00 AM, [address] [place] [address] [place], [place], [address], Provider Name:Clem Ahn , 05/05/2025 04:00:00 PM, [address] [place] [address] [place], [place], [address], Provider Name:Clem Ahn , 01/04/2026 04:00:00 PM, [address] [place] [address] [place], [place], [address], Progress Notes * ANGELA HASSAN JDOB:[birth year] (55 yo F)Acc No.[id number]:03/04/2025 Patient: ANGELA MAYFIELD :1970 A ge:55 Y S ex:Female Address:[address] [place] [phone] Subjective: * Chief Complaints: * L ab [...] * Date: Generated for Printi ng/Faxing/eTransmitting on: 08:53 AM EDT
--- OUTSIDE RECORDS SUMMARY | 2025-03-06 13:30 | XMS_ITS ---
Author Organization Clem Ahn III, MD Address [address] [place] [facility] [place] [address] Care Team Providers Care Golf Course Architect Name Role Phone Dr. Clem Ahn III Primary Care Provider [phone] REASON FOR VISIT Follow up Social History Sex Assigned At : Social History Observation Description Sex Assigned At Female Encounters Encounter Location Date Provider Diagnosis Clem Ahn III, MD [address] [place] [address] [place] [address] 03/06/2025 Clem hAn Plan Of Treatment Next Appt Details Provider Name:Clem Ahn , 04/01/2025 10:15:00 AM, [address] [place] [address] [place], [address], Provider Name:Clem Ahn , 05/05/2025 04:00:00 PM, [address] [place] [address] [place], [address], Provider Name:Clem Ahn , 01/04/2026 04:00:00 PM, [address] [place] [address] [place], [address], Progress Notes * ANGELA LERMADOB:[birth year] (55 yo F)Acc No.[id number]:03/06/2025 Patient: ANGELA MAYFEILD Provider: Solo Ahn MD :1970 A ge:55 Y S ex:Female Date:03/06/2025 Address: [place] [id number] Subjective: * Chief Complaints: * 1 . [...] Solo Ahn MD Date: Generated for Manuel rasheed/Mojgan/Cucosmitting on: 08:54 AM EDT
--- NOTE | ~2025-03-11 | MM_ITS ---
EXAMINATION: MM SCREENING DIGITAL BREAST TOMOSYNTHESIS, BILATERAL CLINICAL INFORMATION: Screening. Asymptomatic. History of left breast cancer post lumpectomy 2019. COMPARISON: Mammography: Comparison is made with available priors TECHNIQUE: Digital breast mammography with tomosynthesis is performed in both the craniocaudal and mediolateral oblique views along with computer-aided detection (CAD). FINDINGS: There are scattered areas of fibroglandular density. Left breast post lumpectomy changes are stable. There are no significant masses, abnormal calcifications, or other abnormalities. MM/MM tomosynthesis screening BI IMPRESSION: No mammographic evidence of malignancy. ASSESSMENT: BI-RADS Category 2: Benign RECOMMENDATION: Routine annual mammography screening. 1 year F/U This examination should not preclude the clinical evaluation of a suspicious palpable abnormality. This patient's information was entered into a reminder system with a target due date for their next mammogram. Electronically signed by: Rylie Olguin DO 03/11/2025 11:20 AM EDT
--- OUTSIDE RECORDS SUMMARY | 2025-03-11 08:53 | XMS_ITS | Clinical Summary ---
Author Organization [facility] Address [address] [place] [address] Care Team Providers Care Pitting Machine Operator Name Role Phone Clem Ahn MD Primary Care Provider [phone] Allergies No known active allergies Medications Medication [...] age to complete this topic Care Teams Pitting Machine Operator Relationship Specialty Start Date End Date Clem Ahn MD [facility] [address] [phone] PCP - General Oncology 04/15/20
--- OUTSIDE RECORDS SUMMARY | 2025-03-11 08:53 | XMS_ITS | Patient Health Record ---
Author Organization Clem Ahn III, MD Address [address] [place] [address] Care Team Providers Care Metal Bonding Press Operator Name Role Phone Dr. Clem Ahn III Primary Care Provider Allergies Allergen (clinical drug ingredient) Drug/Non Drug Allergy documented on EMR Reaction Allergy Type Onset Date Status No Known Drug Allergy Unknown Drug Allergy Active No Known Food Allergy Unknown Drug Allergy Active Results Component Value Reference Range Notes Free T4 (Free Thyroxine) Reviewed date:03/04/2025 09:53:26 AM Interpretation: Performing Lab:[address] [address] Notes/Report: Free T4 (Free Thyroxine) 0.87 0.71-1.85 ng/dL Complete Blood Count Auto Di ff Reviewed date:07/06/2024 09:12:48 AM Interpretation: Performing Lab:[address] [address] Notes/Report: White Blood Count 6.2 4.8-10.8 X10*3/uL [...] NRBC Abs Auto 0.000 0.0-0.012 X10*3/uL Comprehensive [place]. Panel Fa st Reviewed date:07/06/2024 09:12:48 AM Interpretation: Performing Lab:[facility], [address] [place] [phone] Notes/Report: Sodium 143 135-145 mmol/L Potassium 4.1 [...] Ferritin Reviewed date:07/06/2024 09:12:48 AM Interpretation: Performing Lab:[facility], [address] [place] [phone] Notes/Report: Ferritin 199 10-250 ng/mL Lipid Panel Reviewed date:07/06/2024 09:12:48 AM Interpretation: Performing Lab:[facility], [address] [place] [phone] Notes/Report: Triglycerides 177 <150 mg/dL Desirable Triglyceride: [...] Thyroxine) Reviewed date:07/06/2024 09:12:48 AM Interpretation: Performing Lab:[address] [address] Notes/Report: Free T4 (Free Thyroxine) 1.31 0.71-1.85 ng/dL Thyroid Stimulating Hormone Reviewed date:07/06/2024 09:12:48 AM Interpretation: Performing Lab:[address] [address] Notes/Report: Thyroid Stimulating Hormone 0.13 0.32-4.0 uIU/mL TSH 3rd Generation ([facility]) Complete Blood Count Auto Di ff Reviewed date:12/29/2024 03:50:16 PM Interpretation: Performing Lab:[facility], [address] [place] [phone] Notes/Report: White Blood Count 5.5 4.8-10.8 X10*3/uL [...] NRBC Abs Auto 0.000 0.0-0.012 X10*3/uL Comprehensive [place]. Panel Fa st Reviewed date:12/29/2024 03:50:16 PM Interpretation: Performing Lab:[facility], [address] [place] [phone] Notes/Report: Sodium 140 135-145 mmol/L Potassium 4.4 [...] Panel Reviewed date:12/29/2024 03:50:16 PM Interpretation: Performing Lab:[address] [address] Notes/Report: Triglycerides 130 <150 mg/dL Desirable Triglyceride: [...] Thyroxine) Reviewed date:12/29/2024 03:50:16 PM Interpretation: Performing Lab:[address] [address] Notes/Report: Free T4 (Free Thyroxine) 1.17 0.71-1.85 ng/dL Thyroid Stimulating Hormone Reviewed date:12/29/2024 03:50:16 PM Interpretation: Performing Lab:[address] [address] Notes/Report: Thyroid Stimulating Hormone 0.86 0.32-4.0 uIU/mL TSH 3rd Generation ([facility]) Complete Blood Count Auto Di ff Reviewed date:03/04/2025 09:53:26 AM Interpretation: Performing Lab:[facility], [address] [place] [phone] Notes/Report: White Blood Count 5.2 4.8-10.8 X10*3/uL [...] REPORT CORRECTED REPORT Erythrocyte Sedimentation Ra te Reviewed date:03/04/2025 09:53:26 AM Interpretation: Performing Lab:[facility], [address] [place] [address] Notes/Report: Erythrocyte Sedimentation Rate 14 0-20 MM/HR Patients with polycythemia and many hemoglobin abnormalities may have depressed sed rates whereas patients with anemia may have elevated sed rates. Comprehensive Met. Panel Reviewed date:03/04/2025 09:53:26 AM Interpretation: Performing Lab:[address] [address] Notes/Report: Sodium 134 135-145 mmol/L Potassium 3.6 [...] Phosphatase 199 39-117 U/L Thyroid Stimulating Hormone Reviewed date:03/04/2025 09:53:26 AM Interpretation: Performing Lab:[facility], [address] [place] [address] Notes/Report: Thyroid Stimulating Hormone 15.13 0.32-4.0 uIU/mL Note: A sustained TSH level above 2.5 uIU/mL may warrant further investigation. TSH 3rd Generation ([facility]) SLIDE REVIEW Reviewed date:03/04/2025 09:53:26 AM Interpretation: Performing Lab:[address] [address] Notes/Report: SLIDE REVIEW VERIFIED Reason For Referral Reason right shoulder pain Diagnosis 1 Acute pain of right shoulder (M25.511) Referral Organization Clem Ahn III, MD Referring Provider First Name Clem Referring Provider Last Name Anabelle Referring Provider Speciality Internal M edicine Referred Provider [facility] er, Orthopedic Surgeons Referred Provider Specialty Orthopedic S urgery General Notes Leighann Michaud CMA 07/14 11:11:30 AM > Called pt she [...] AM > Referral and progress note faxed, Leighann Michaud [facility] 2025 10:06:58 AM >Emperatriz from Dr Fuller [...] a day for 90 days 03/04/2025 Active Levothyroxine Sodium 112 MCG TAKE 1 TABL [...] Problem Status W/U Status Risk Notes Problem [id number] Obesity (BMI 30.0-34.9) (E66.9) Active confirmed Her body mass index is 32. We discussed diet and nutrition. We made a plan to lose weight at a rate of 1 pound per week through a diet restricted in fat calories and sodium combined with regular physical activity. Problem Hypertension (18389757) Hypertension (I10) Active confirmed Her blood pressure is somewhat higher than in the past. Be repeated when her thyroid function tests are normal eyes. Problem [id number] Malignant neoplasm of unspecified site of left female breast (C50.912) Active confirmed Both breast s were unremarkable except for scars. There is no sign of recurrent disease or new primary. Problem [id number] Lumbago with sciatica, right side (M54.41) Active confirmed She will continue with conservative therapy. She is improving rapidly with rest heat and ibuprofen. Problem 630009418 Lumbago with sciatica, left side (M54.42) Active confirmed She will continue conservative therapy as she is improving rapidly. 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 Problem 280676657 Acquired hypothyroidism (E03.9) Active confirmed It appears that she has run out of refills for her thyroid medicatioon and has not been taking it. We will communicate with her and resume treatment. Problem 319496462 Iron deficiency anemia due to chronic blood loss (D50.0) Active confirmed She is no longer iron deficient. This will be monitored however. Problem 124874100 Anemia, unspecified type (D64.9) Active confirmed She has been continued on her iron supplements. Problem 39253086 Hyperlipidemia, unspecified hyperlipidemia type (E78.5) Active confirmed Her lipids are currently stable and no change in her regimen is needed. Problem 963673596 Abnormal liver function tests (R79.89) Active confirmed Her alkaline phosphatase is increased to 199 with mild elevation of the SGOT and SSGPT. Her bilirubin is normal. Review of older value shows she has been normal in the past but slightly abnormal increasingly for the last 18 months. This will be evaluated. Problem 2621888605 Acute pain of right shoulder (M25.511) Active confirmed I have ordered an x-ray of the right shoulder. This appears to the rotator cuff tear. I have referred her to orthopedic surgery. Vital Signs Heart Rate 96 /min 03/03/2025 Temperature 98.3 degrees Fahrenheit 03/03/2025 Respiratory Rate 16 /min 03/03/2025 Blood pressure diastolic 78 mm Hg 03/03/2025 Height 63 in 03/03/2025 Blood pressure systolic 139 mm Hg 03/03/2025 Weight 181 lbs 03/03/2025 BMI 32.06 kg/m2 03/03/2025 Encounters Encounter Location Date Provider Diagnosis Clem Ahn III, MD [address] [place] [address] [place] [address] 07/07/2024 Clem Ahn Acquired hypothyroid ism E03.9 ; Acute pain of right shoulder M25.511 ; Hyperlipidemia, unspecified hyperlipidemia type E78.5 and Iron deficiency anemia due to chronic blood loss D50.0 Clem Ahn III, MD [address] [place] [address] [place] [address] 12/30/2024 Clem Ahn Acquired hypothyroid ism E03.9 ; Obesity (BMI 30.0-34.9) E66.9 ; Hyperlipidemia, unspecified hyperlipidemia type E78.5 ; Anemia, unspecified type D64.9 ; Malignant neoplasm of unspecified site of left female breast C50.912 ; Breast screening Z12.31 and Hypertension I10 Clem Ahn III, MD [address] [place] [address] [place] [address] 03/03/2025 Clem Ahn Acquired hypothyroid ism E03.9 ; Hyperlipidemia, unspecified hyperlipidemia type E78.5 ; Obesity (BMI 30.0-34.9) E66.9 ; Hypertension I10 ; Anemia, unspecified type D64.9 ; Iron deficiency anemia due to chronic blood loss D50.0 ; Malignant neoplasm of unspecified site of left female breast C50.912 ; Estrogen receptor positive status [ER+] Z17.0 and Abnormal liver function tests R79.89 Clem Ahn III, MD [address] [place] [address] [place] [address] 07/14/2024 Clem Ahn III, MD [address] [place] [address] [place] [address] 03/04/2025 Clem Ahn III, MD [address] [place] [address] [place] [address] 03/04/2025 Clem Ahn Acquired hypothyroid ism E03.9 [...] and her dose will be optimized. 03/03/2025 Acquired hypothyroidism (ICD-10 - E03.9) It appears that she has run out of refills for her thyroid medicatioon and has not been taking it. We will communicate with her and resume treatment. 03/03/2025 Hyperlipidemia, unspecified hyperlipidemia type (ICD-10 - E78.5) Her lipids are currently stable and no change in her regimen is needed. 03/04/2025 Acquired hypothyroidism (ICD-10 - E03.9) 07/07/2024 Hyperlipidemia, unspecified hyperlipidemia type (ICD-10 - [...] and sodium combined with regular physical activity. 03/04/2025 Hyperlipidemia, unspecified hyperlipidemia type (ICD-10 - E78.5) 07/07/2024 Iron deficiency anemia due to chronic blood loss (ICD-10 - D50.0) She is no longer iron deficient. This will be monitored however. 12/30/2024 Anemia, unspecified type (ICD-10 - D64.9) She has been continued on her iron supplements. 03/03/2025 Hypertension (ICD-10 - I10) Her blood pressure is somewhat higher than in the past. Be repeated when her thyroid function tests are normal eyes. 03/04/2025 Anemia, unspecified type (ICD-10 - D64.9) 12/30/2024 Malignant neoplasm o f unspecified site of left female breast (ICD-10 - C50.912) Both breasts were unremarkable except for scars. There is no sign of recurrent disease or new primary. 03/03/2025 Anemia, unspecified type (ICD-10 - D64.9) She has been continued on her iron supplements. 03/04/2025 Abnormal liver function tests (ICD-10 - R79.89) 12/30/2024 Breast screening (ICD-10 - Z12.31) Annual screening mammogram has been ordered. 03/03/2025 Iron deficiency anemia due to chronic blood loss (ICD-10 - D50.0) She is no longer iron deficient. This will be monitored however. 12/30/2024 Hypertension (ICD-10 - I10) Her blood pressure is in the normal devlin. She has been compliant with her medications. We stressed the wisdom of progressive weight loss and sodium restriction and regular physical activity. 03/03/2025 Malignant neoplasm o f unspecified site [...] This will be evaluated. Plan Of Treatment Pending Test Test Name Order Date PROFILE, FASTING (COMPREHENSIVE METABOLI C) 03/17/2021 PROFILE, FASTING (COMPREHENSIVE METABOLI C) 12/16/2020 PROFILE, FASTING (COMPREHENSIVE METABOLI C) 11/12/2017 PROFILE, FASTING (COMPREHENSIVE METABOLI C) 12/26/2023 PROFILE, FASTING (COMPREHENSIVE METABOLI C) 12/20/2022 PROFILE, FASTING (COMPREHENSIVE METABOLI C) 09/15/2021 PROFILE, FASTING (COMPREHENSIVE METABOLI C) 07/07/2024 PROFILE, FASTING (COMPREHENSIVE METABOLI C) 07/16/2020 PROFILE, FASTING (COMPREHENSIVE METABOLI C) 02/11/2020 PROFILE, FASTING (COMPREHENSIVE METABOLI C) 12/30/2024 PROFILE, RANDOM (COMPREHENSIVE METABOLIC ) 08/12/2019 PROFILE, RANDOM (COMPREHENSIVE METABOLIC ) 08/06/2018 PROFILE, RANDOM (COMPREHENSIVE METABOLIC ) 08/09/2020 PROFILE, RANDOM (COMPREHENSIVE METABOLIC ) 03/04/2025 PROFILE, RANDOM (COMPREHENSIVE METABOLIC ) 03/03/2025 LIPID PANEL 03/17/2021 LIPID PANEL 12/16/2020 LIPID PANEL 11/12/2017 LIPID PANEL 08/12/2019 LIPID PANEL 08/09/2020 LIPID PANEL 12/20/2022 LIPID PANEL 09/15/2021 LIPID PANEL 07/16/2020 LIPID PANEL 02/11/2020 GGT 03/04/2025 FREE T4 (FT4) 07/16/2020 FREE T4 (FT4) 09/15/2021 FREE T4 (FT4) 02/11/2020 FREE T4 (FT4) 12/16/2020 FREE T4 (FT4) 08/06/2018 FREE T4 (FT4) 08/12/2019 FREE T4 (FT4) 12/20/2022 TSH (THYROID STIMULATING HORMONE) 2024 TSH (THYROID STIMULATING HORMONE) 08/09/ 2023 TSH (THYROID STIMULATING HORMONE) 2020 TSH (THYROID STIMULATING HORMONE) 2021 TSH (THYROID STIMULATING HORMONE) 2024 TSH (THYROID STIMULATING HORMONE) 2019 TSH (THYROID STIMULATING HORMONE) 2020 TSH (THYROID STIMULATING HORMONE) 2023 TSH (THYROID STIMULATING HORMONE) 2024 TSH (THYROID STIMULATING HORMONE) 2018 TSH (THYROID STIMULATING HORMONE) 2024 TSH (THYROID STIMULATING HORMONE) 2019 FERRITIN 08/06/2018 FERRITIN 04/08/2018 FERRITIN 08/12/2019 FERRITIN 02/08/2018 FERRITIN 12/14/2017 B12 12/14/2017 FOLATE 12/14/2017 CBC w DIFF 07/07/2024 CBC w DIFF 12/30/2024 CBC w DIFF 08/06/2018 CBC w DIFF 04/08/2018 CBC w DIFF 03/03/2025 CBC w DIFF 12/20/2022 CBC w DIFF 12/14/2017 CBC w DIFF 08/12/2019 CBC w DIFF 07/16/2020 CBC w DIFF 09/15/2021 CBC w DIFF 03/17/2021 CBC w DIFF 03/04/2025 CBC w DIFF 02/11/2020 CBC w DIFF 11/12/2017 CBC w DIFF 12/16/2020 CBC w DIFF 02/08/2018 CBC w DIFF 08/09/2020 SED RATE (ESR) 03/03/2025 RETICULOCYTE COUNT,CORRECTED 12/14/2017 XR SHOULDER RT 2 VIEWS 07/07/2024 CBC WITH AUTO DIFF 12/26/2023 SARS COV2 RNA RT PCR 09/10/2019 Ferritin 12/26/2023 Lipid Panel 07/07/2024 Lipid Panel 12/26/2023 Lipid Panel 12/30/2024 Free T4 (Free Thyroxine) 07/07/2024 Free T4 (Free Thyroxine) 12/26/2023 Free T4 (Free Thyroxine) 12/30/2024 Free T4 (Free Thyroxine) 03/04/2025 MM tomosynthesis screening BI 12/30/2024 Next Appt Details Provider Name:Clem Ahn , 04/01/2025 10:15:00 AM, [address] [place] [address] , [address], [place], [place], [address], Provider Name:Clem Newmanne , 05/05/2025 04:00:00 PM, [address] [facility], [place], [address], Provider Name:Clem Ahn , 01/04/2026 04:00:00 PM, [address] [place] [address] [address], [place], [address], Insurance Providers Payer Name Payer Address Payer Phone Subscriber Number Group Number Insured Name Patient Relationship to Insured Coverage Start Date Coverage End Date [employer] [address] [address] [place] [address] [id number] FLORENTINANGELA Self - patient is the insured 2024 Medical (General) History Medical History History ICD Code Hypothyroidism, unspecified type E03.9 Hyperlipidemia, unspecified hyperlipidem ia type E78.5 cellulitis left leg July 2017 tick bite July 2017 posterior left thig h overweight, BMI 29 miscarriage 2004 anemia November 2017 septate uterus 2004. By ultrasound benign lesion left eyelid mucous cyst finger [id number] ER, 9 mm, triple po sitive, node-negative, [...]
--- OUTSIDE RECORDS SUMMARY | 2025-03-11 08:53 | XMS_ITS | Encounter Summary ---
Author Organization [facility] Address [facility] [employer] [address] [address] Phone Care Team Providers Care Mural Artist Name Role Phone Karan Lazaro MD Primary Care Provider Encounter Details Date Type Department Care Team (Latest Contact Info) Description 04/30/2019 Transcribe Orders Virtual Department [address] [place] [address] Nilesh Monet DC [address] [place] [phone] Low back pain, unspecified back pain laterality, [...] limb documented in this encounter Care Teams Mural Artist Relationship Specialty Start Date End Date Karan Lazaro MD PCP - General 04/30/19 documented as of this encounter Additional Source Comments The information contained in this document represents components of the legal health record. It is not the complete legal health record.[facility]
--- OUTSIDE RECORDS SUMMARY | 2025-03-11 08:53 | XMS_ITS | Encounter Summary ---
Author Organization [facility] Address [facility] [employer] [facility] [address] [place] [address] Phone Care Team Providers Care Flap Presser Name Role Phone Karan Lazaro MD Primary Care Provider [phone] Encounter Details Date Type Department Care Team (Latest Contact Info) Description 04/30/2019 Ancillary Orders Virtual Department [address] [place] [address] Nilesh Monet DC [address] [place] [address] Low back pain with sciatica, sciatica laterality [...] No other explanation for pain. POS - [id number] Narrative 04/30/2019 6:16 PM EST HISTORY: Lower [...] level. No other explanationfor pain. POS - [id number] Nilesh Monet DC IMG XR SPINE Final [...] unspecified documented in this encounter Care Teams Flap Presser Relationship Specialty Start Date End Date Karan Lazaro MD PCP - General 04/30/19 documented as of this encounter Additional Source Comments The information contained in this document represents components of the legal health record. It is not the complete legal health record.[facility]
--- OUTSIDE RECORDS SUMMARY | 2025-03-11 08:54 | XMS_ITS | Clinical Summary ---
Author Organization [facility] Address [address] [place] [address] Phone Care Team Providers Care City Editor Name Role Phone Clem Ahn MD Primary Care Provider [phone] Allergies No known active allergies Medications levothyroxine (SYNTHROID, LEVOTHROID) 112 mcg tablet Take 1 tablet (112 mcg total) by mouth every morning on an empty stomach. Active anastrozole (ARIMIDEX) 1 mg TAKE 1 TABLET BY MOUTH 1 TIME EACH DAY. 30 tablet 5 10/30/2024 Active Encounters Date Type Department Care Team Description 12/19/2024 9:00 AM EDT Office Visit [facility] Hematology Oncology [address] [place] [address] Eduard Davis MD Invasive ductal carcinoma of breast, female, left (CMS/HCC V24, CMS/HCC V28) (Primary Dx) from Last 3 Months Family [...] Sign Reading Time Taken Comments Blood Pressure 124/90 12/19/2024 8:56 AM EDT Pulse 70 12/19/2024 8:56 AM EDT Temperature 36.7 C (98.1 F) 12/19/2024 8:56 AM EDT Respiratory Rate - - Oxygen Saturation 100% 12/19/2024 8:56 AM EDT Inhaled Oxygen Concentration - - Weight 81.6 kg (180 lb) 12/19/2024 8:56 AM EDT Height 157.5 cm (5' 2 ) 08/03/2023 9:25 AM EDT Body Mass Index 32.92 08/03/2023 9:25 AM EDT Plan of Treatment Upcoming Encounters Date Type Department Care Team (Late st Contact Info) Description 07/20/2025 8:45 AM EDT Office Visit [facility] Hematology Oncology [address] [place] [phone] Eduard Davis MD [address] [place] [address] Health Maintenance Due Date Last Done Comments Breast Cancer Screening 1970 Colorectal Cancer Screening: Colonoscopy 1970 DTaP,Tdap,and Td Vaccines (1 - Tdap) 1989 Hepatitis B Vaccines (1 of 3 - 19+ 3-dose series) 1989 Pneumococcal Vaccine: 50+ Years (1 of 2 - PCV) 1989 Zoster Vaccines (1 of 2) 1989 Cervical Cancer Screening: P ap Smear 1991 RSV Immunization Adult Patients (1 - Risk 50-74 years 1-dose series) 01/29/2020 COVID-19 Vaccine (3 - Pfizer risk series) 08/24/2020 07/27/2020, 07/06/2020 HIV Screening 04/22/2022 Hepatitis C Screening 04/22/2022 Social Influencers of Health Screening 04/22/2022 Depression Screening 05/14/2024 Influenza Vaccine (#1) 2025 HIB Vaccines Aged Out No longer eligi [...] age to complete this topic Meningococcal B Vaccine Aged Out No l onger eligible based on patient's age to complete this topic RSV Immunization Patients Under 20 months Aged Out No longer eligible b ased on patient's age to complete this topic Varicella Vaccines Aged Out No longer eligible based on patient's age to complete this topic Insurance [facility] Care Teams City Editor Relationship Specialty Start Date End Date Clem Ahn MD [address] [facility] [address] [place] [address] PCP - General Oncology 04/15/20
--- OUTSIDE RECORDS SUMMARY | 2025-03-11 08:55 | XMS_ITS | Clinical Summary ---
Author Organization [facility] Address [facility] [employer] [address] [address] Phone Care Team Providers Care Operations Controller Name Role Phone Karan Lazaro MD Primary Care Provider [phone] Social History Tobacco Use Types Packs/Day Years [...] file Medical Devices Not on file Insurance [facility]G PCP DAVID SANDRA [employer] [...] Kristen Relation to Subscriber:Self Name:Lenoflower Kristen Payer ID:[id number] Type:HMO Address: [place] [id number] [employer] NON NSPG PCP DAVID CLARITY [employer] NON NSPG PCP DAVID CL[employer] Care Teams Operations Controller Relationship Specialty Start Date End Date Karan Lazaro MD PCP - General 04/30/19 Additional Source Comments The information contained in this document represents components of the legal health record. It is not the complete legal health record.[facility]
== END 2025-03-11 08:25 | disposition home or self-care (01) ==
LOC: HO.MAMMO 08:24
PROVIDERS: PCP Internal Medicine Medical Oncology; Visit Provider Internal Medicine Medical Oncology
DX: Z12.31 Encounter for screening mammogram for malignant neoplasm of breast (principal)
CPT/HCPCS: 77063; 77067

== ENCOUNTER → 2025-03-11 08:30 | Outpatient (BNV) | payer OTHER, SELFPAY | PROVIDERS: PCP Internal Medicine Medical Oncology; Visit Provider Internal Medicine | DX: Z12.31 Encounter for screening mammogram for malignant neoplasm of breast (principal) | CPT/HCPCS: 77063; 77067 ==

== ENCOUNTER 2025-03-25 07:14 | Outpatient (REF) | payer OTHER, SELFPAY ==
--- OUTSIDE RECORDS SUMMARY | 2024-04-01 11:15 | XMS_ITS ---
Author Organization Clem Ahn III, MD Address [address] [place] [address] Care Team Providers Care Operations Systems Specialist Name Role Phone Dr. Clem Ahn III Primary Care Provider REASON FOR VISIT Follow up Social History Sex Assigned At : Social History Observation Description Sex Assigned At Female Encounters Encounter Location Date Provider Diagnosis Clem Ahn III, MD [address] [place] [address] [address] [place] [address] 04/01/2024 Clem Ahn Plan Of Treatment Next Appt Details Provider Name:Clem Ahn , 04/01/2025 10:15:00 AM, [address] [place] [address] [place], [address], Provider Name:Clem Ahn , 05/05/2025 04:00:00 PM, [address] [place] [address] [place], [address], Provider Name:Clem Ahn , 01/04/2026 04:00:00 PM, [address] [place] [address] [place], [address], Progress Notes * ANGELA LERMADOB:[birth year] (55 yo F)Acc No.[id number]:04/01/2024 Progress Notes Patient: Aliza ROCKANGELA PRESCOTT Provider: Solo Ahn MD :1970 A ge:54 Y S ex:Female Date:04/01/2024 Address: [id number] Subjective: * Chief Complaints: * 1 . Follow up. * Medical History: Objective: * Vitals: Assessment: Plan: * Treatment: * Images: * The named appointment provid er may or may not be the originator of this progress note, and it is not deemed complete until electronically signed by the appointment provider. Sign off status: Pending * Provider: Solo Ahn MD Date: 06/01/2023 Generated for Manuel rasheed/Mojgan/Claudineitting on: 05/25/2024 07:18 AM EST
--- OUTSIDE RECORDS SUMMARY | 2024-05-28 11:00 | XMS_ITS ---
Author Organization Clem Ahn III, MD Address [address] [place] [address] Care Team Providers Care Retail Training Manager Name Role Phone Dr. Clem Ahn III Primary Care Provider [phone] REASON FOR VISIT Follow up Social History Sex Assigned At : Social History Observation Description Sex Assigned At Female Encounters Encounter Location Date Provider Diagnosis Clem Ahn III, MD [address] [place] [address] [address] [place] [facility] [place] [address] 05/28/2024 Clem Ahn Plan Of Treatment Next Appt Details Provider Name:Clem Ahn , 04/01/2025 10:15:00 AM, [address] [place] [address] [place], [address], Provider Name:Clem Ahn , 05/05/2025 04:00:00 PM, [address] [place] [address] [place], [address], Provider Name:Clem Ahn , 01/04/2026 04:00:00 PM, [address] [place] [address] [place], [address], Progress Notes * ANGELA LERMADOB:[birth year] (55 yo F)Acc No.[id number]:05/28/2024 Progress Notes Patient: Aliza ROCKANGELA PRESCOTT Provider: Solo Ahn MD :1970 A ge:54 Y S ex:Female Date:05/28/2024 Address: [id number] Subjective: * Chief Complaints: * 1 . Follow up. * Medical History: Objective: * Vitals: Assessment: Plan: * Treatment: * Images: * The named appointment provid er may or may not be the originator of this progress note, and it is not deemed complete until electronically signed by the appointment provider. Sign off status: Pending * Provider: Sloo Ahn MD Date: 0 05/28/2024 Generated for Manuel rasheed/Mojgan/Claudineitting on: 05/25/2024 07:17 AM EST
--- OUTSIDE RECORDS SUMMARY | 2024-07-07 10:45 | XMS_ITS ---
Author Organization Clem Ahn III, MD Address [address] [place] [address] Care Team Providers Care Stockfeed Miller Name Role Phone Dr. Clem Ahn III Primary Care Provider Allergies Allergen (clinical drug ingredient) Drug/Non Drug Allergy documented on EMR Reaction Allergy Type Onset Date Status No Known Drug Allergy Unknown Drug Allergy Active Reason For Referral Reason right shoulder pain Diagnosis 1 Acute pain of right shoulder (M25.511) Referral Organization Clem Ahn III, MD Referring Provider First Name Clem Referring Provider Last Name Anabelle Referring Provider Speciality Internal M edicine Referred Provider [facility] er, Orthopedic Surgeons Referred Provider Specialty Orthopedic S urgery General Notes Leighann Michaud REAL ESTATE FIRM MANAGER 07/14 11:11:30 AM > Called pt she stated she did not have shoulder x ray and wants to hold off on both x ray and referral to ortho . Referral Priority Routine REASON FOR VISIT Right shoulder pain for 3 months, Hyperlipidemia, hypothyroid, obesity, left breast cancer, Historyof iron deficiency, Low back pain Medications Medication SIG (Take, Route, Frequency, Duration) Notes Start Date End Date Status Levothyroxine Sodium 112 MCG TAKE 1 TABL ET BY MOUTH EVERY DAY IN THE MORNING FOR 90 DAYS Active Anastrozole 1 MG Oral Act brandi Social History Tobacco Use: Social History Observation Description Date Details (start date - stop date) Never Smoker NA - NA Sex Assigned At : Social History Observation Description Sex Assigned At Female Tobacco Use/Smoking Question Answer Notes Patient is a nonsmoker Additional Findings: Tobacco Non-User Aggressive non-smoker Problems Problem Type SNOMED Code ICD Code Onset Dates Problem Status W/U Status Risk Notes Problem [id number] Acute pain of right shoulder (M25.511) Active confirmed I have ordered an x-ray of the right shoulder. This appears to the rotator cuff tear. I have referred her to orthopedic surgery. Vital Signs Temperature 98.1 degrees Fahrenheit 07/07/19 25 Blood pressure systolic 137 mm Hg 07/07/19 25 Blood pressure diastolic 83 mm Hg 025 Heart Rate 79 /min 07/07/2024 Height 63 in 07/07/2024 Weight 181 lbs 07/07/2024 BMI 32.06 kg/m2 07/07/2024 Encounters Encounter Location Date Provider Diagnosis Clme Ahn III, MD [address] [place] [address] [place] [address] 07/07/2024 Clem Ahn Acquired hypothyroid ism E03.9 ; Acute pain of right shoulder M25.511 ; Hyperlipidemia, unspecified hyperlipidemia type E78.5 and Iron deficiency anemia due to chronic blood loss D50.0 Assessments Encounter Date Diagnosis (ICD Code) Assessment Notes Treat ment Notes Treatment Clinical Notes 07/07/2024 Acquired hypothyroidism (ICD-10 - E03.9) Her free T4 level is now in the normal range. Her TSH is low normal. He feels euthyroid. Her heart rate is normal and her weight is stable. Her thyroid function tests will be followed and her dose will be optimized. 07/07/2024 Acute pain of right shoulder (ICD-10 - M25.511) I have ordered an x-ray of the right shoulder. This appears to the rotator cuff tear. I have referred her to orthopedic surgery. 07/07/2024 Hyperlipidemia, unspecified hyperlipidemia type (ICD-10 - E78.5) 07/07/2024 Iron deficiency anemia due to chronic blood loss (ICD-10 - D50.0) She is no longer iron deficient. This will be monitored however. Plan Of Treatment Medication Medication Name Sig Start Date Stop Date Notes Levothyroxine Sodium 112 MCG TAKE 1 TABL ET BY MOUTH EVERY DAY IN THE MORNING FOR 90 DAYS Anastrozole 1 MG Oral Pending Test Test Name Order Date PROFILE, FASTING (COMPREHENSIVE METABOLI C) 07/07/2024 TSH (THYROID STIMULATING HORMONE) 2024 CBC w DIFF 07/07/2024 XR SHOULDER RT 2 VIEWS 07/07/2024 Lipid Panel 07/07/2024 Free T4 (Free Thyroxine) 07/07/2024 Referrals Referral Date Details 07/07/2024 07/07/2024, right sh oulder pain, [facility] Next Appt Details Follow Up: 3 Months, In abou t 3 months, Reason: ov review labs, Follow-up on arm and shoulder pain and osteopenia Provider Name:Clem Ahn , 04/01/2025 10:15:00 AM, [address] [place] [address] [address], [place], [address], Provider Name:Clem Ahn , 05/05/2025 04:00:00 PM, [address] [place] [address] [address] [place], [place], [address], Provider Name:Clem Ahn , 01/04/2026 04:00:00 PM, [address] [place] [address] [address] [place], [place], [address], Progress Notes * ANGELA HASSAN JuancarlosDOB:[birth year] (54 yo F)Acc No.[id number]:07/07/2024 Progress Notes Patient: ANGELA MAYFIELD Provider: Solo Ahn MD :1970 A ge:54 Y S ex:Female Date:07/07/2024 Address:[address] [place] [id number] Subjective: * Chief Complaints: * R ight shoulder pain for 3 monthsHyperlipidemiaHypothyroidObesityLeft breast cancerHistory of iron deficiencyLow back pain * HPI: C OVID-19 Screening: Questions H ave you had any new onset fever, chills, cough, congestion, sore throat, shortness of breath, muscle aches? N o * : The patient, a 54-year-old female, presented with a complaint of persistent pain in her arm for the past three months. The pain, which she rated as a 10 on the pain scale, has been constant and has not improved despite attempts at stretching. The pain is located in her arm and shoulder, and it intensifies when she tries to stretch her arm or move her shoulder. The patient believes the pain might be due to stress radiating down her arm. The doctor suggested that it could be due to a pinched nerve in her neck causing muscle spasms, or tears in the rotator cuff muscles. The patient also reported limited mobility in her shoulder due to the pain. Blood Sugar Level is 103. Pain Scale is 10. * ROS: G eneral/Constitutional: Admits p ain, R ight shoulder pain, otherwise only normal aches and pains. C hills d enies. F atigue a dmits. F ever d enies. ? E NT: Decreased hearing d enies. R espiratory: Cough d enies. C ardiovascular: Chest pain with exertion d enies. D yspnea on exertion?denies. S hortness of breath d enies. G astrointestinal: Constipation d enies. D ecreased appetite d enies.?Diarrhea d enies. H eartburn d enies. N ausea d enies. R ectal bleeding?denies. V omiting d enies. H ematology: bruising d enies. p etechiae d enies. S wollen glands n one have been noted. G enitourinary: Frequent urination d enies. M usculoskeletal: Muscle aches R ight arm and shoulder. P ainful joints?denies. S ciatica d enies. W eakness d enies. S kin: Itching d enies. R chaka [...] left breast, lumpectomy and sentinel node biopsy 03/2020No history * Hospitalization/Major Diagno stic Procedure: N o history * Family History: F ather: alive 83 [...] Gomez for many years. She works at [employer] and in [place], [place]. They have several children who are healthy and well. * Medications: T akingAnastrozole 1 MG Tablet Oral Levothyroxine Sodium 112 MCG Tablet TAKE 1 TABLET BY MOUTH EVERY DAY IN THE MORNING FOR 90 DAYS Medication List reviewed and reconciled with the patientTaking Anastrozole 1 MG Tablet Oral Taking Levothyroxine Sodium 112 MCG Tablet TAKE 1 TABLET BY MOUTH EVERY DAY IN THE MORNING FOR 90 DAYS Medication List reviewed and reconciled with the patient * Allergies: N o Known Drug Allergyno[Allergies Verified] Objective: * Vitals: H t: 63, Wt: 181, BMI:32.06, BP: 137/83, HR: 79, Temp: 98.1, Wt-k.1. * P ast Orders: Lab:Thyroid Stimulating Horm one * Collection Date 06/30/2024 12/21/2023 12/22/2022 Collection Time 07:48 AM 06:23 AM 07:54 AM Order Date 06/30/2024 12/21/2023 12/22/2022 Thyroid Stimulating Hormone 0.13 L (Ref Range: 0.32-4.0 uIU/mL) > 100.00 H (Ref Range: 0.32-4.0 uIU/mL) 0.62 (Ref Range: 0.32-4.0 uIU/mL) * Lab:Complete Blood Count Aut o Diff * Collection Date 06/30/2024 12/21/2023 12/22/2022 Collection Time 07:48 AM 06:23 AM 07:54 AM Order Date 06/30/2024 12/21/2023 12/22/2022 White Blood Count 6.2 (Ref Range: 4.8-10.8 X10*3/uL) 5.9 (Ref Range: 4.8-10.8 X10*3/uL) 6.0 (Ref Range: 4.8-10.8 X10*3/uL) Red Blood Count 5.17 (Ref Range: 4.20-5.50 X10*6/uL) 5.44 (Ref Range: 4.20-5.50 X10*6/uL) 4.88 (Ref Range: 4.20-5.50 X10*6/uL) Hemoglobin 15.2 (Ref Range: 12.0-16.0 g/dl) 16.1 H (Ref Range: 12.0-16.0 g/dl) 14.8 (Ref Range: 12.0-16.0 g/dl) Hematocrit 44.3 (Ref Range: 37.0-47.0 %) 46.6 (Ref Range: 37.0-47.0 %) 42.5 (Ref Range: 37.0-47.0 %) Mean Corpuscular Volume 85.7 (Ref Range: 80.0-98.0 fL) 85.7 (Ref Range: 80.0-98.0 fL) 87.1 (Ref Range: 80.0-98.0 fL) Mean Corpuscular Hemoglobin 29.4 (Ref Range: 27.0-33.0 pg) 29.6 (Ref Range: 27.0-33.0 pg) 30.3 (Ref Range: 27.0-33.0 pg) Mean Corpuscular HGB Conc 34.3 (Ref Range: 31.0-35.0 g/dl) 34.5 (Ref Range: 31.0-35.0 g/dl) 34.8 (Ref Range: 31.0-35.0 g/dl) Red Cell Distribution Width 12.0 (Ref Range: 11.0-16.0 %) 13.2 (Ref Range: 11.0-16.0 %) 11.9 (Ref Range: 11.0-16.0 %) Platelet Count 274 (Ref Range: 160-400 X10*3/uL) 257 (Ref Range: 160-400 X10*3/uL) 235 (Ref Range: 160-400 X10*3/uL) Mean Platelet Volume 9.3 L (Ref Range: 9.4-12.3 fL) 9.8 (Ref Range: 9.4-12.3 fL) 9.5 (Ref Range: 9.4-12.3 fL) Neutrophils Percent Auto 45.6 (Ref Range: 45-73 %) 47.0 (Ref Range: 45-73 %) 54.6 (Ref Range: 45-73 %) Imm Gran Pct Auto 0.5 H (Ref Range: 0.0-0.4 %) 0.3 (Ref Range: 0.0-0.4 %) 0.5 H (Ref Range: 0.0-0.4 %) Lymphocytes Percent Auto 28.5 (Ref Range: 20-40 %) 32.9 (Ref Range: 20-40 %) 23.4 (Ref Range: 20-40 %) Monocytes Percent Auto 11.0 (Ref Range: 2-11 %) 8.9 (Ref Range: 2-11 %) 9.5 (Ref Range: 2-11 %) Eosinophils Percent Auto 12.9 H (Ref Range: 0-4 %) 8.9 H (Ref Range: 0-4 %) 10.5 H (Ref Range: 0-4 %) Basophils Percent Auto 1.5 (Ref Range: 0-2 %) 2.0 (Ref Range: 0-2 %) 1.5 (Ref Range: 0-2 %) NRBC Pct Auto 0.0 (Ref Range: 0.0-0.2 /100WBC) 0.0 (Ref Range: 0.0-0.2 /100WBC) 0.0 (Ref Range: 0.0-0.2 /100WBC) Neutrophils Absolute Auto 2.8 (Ref Range: 2.0-8.3 x10*3/uL) 2.8 (Ref Range: 2.0-8.3 x10*3/uL) 3.3 (Ref Range: 2.0-8.3 x10*3/uL) Imm Gran Abs Auto 0.03 (Ref Range: 0.00-0.03 X10*3/uL) 0.02 (Ref Range: 0.00-0.03 X10*3/uL) 0.03 (Ref Range: 0.00-0.03 X10*3/uL) Lymphocytes Absolute Auto 1.8 (Ref Range: 1.2-4.9 X10*3/uL) 2.0 (Ref Range: 1.2-4.9 X10*3/uL) 1.4 (Ref Range: 1.2-4.9 X10*3/uL) Monocytes Absolute Auto 0.7 (Ref Range: 0.1-1.2 X10*3/uL) 0.5 (Ref Range: 0.1-1.2 X10*3/uL) 0.6 (Ref Range: 0.1-1.2 X10*3/uL) Eosinophils Absolute Auto 0.8 H (Ref Range: 0.0-0.4 X10*3/uL) 0.5 H (Ref Range: 0.0-0.4 X10*3/uL) 0.6 H (Ref Range: 0.0-0.4 X10*3/uL) Basophils Absolute Auto 0.1 (Ref Range: 0.0-0.2 X10*3/uL) 0.1 (Ref Range: 0.0-0.2 X10*3/uL) 0.1 (Ref Range: 0.0-0.2 X10*3/uL) NRBC Abs Auto 0.000 (Ref Range: 0.0-0.012 X10*3/uL) 0.000 (Ref Range: 0.0-0.012 X10*3/uL) 0.000 (Ref Range: 0.0-0.012 X10*3/uL) * Lab:[facility] [place] * Collection Date 06/30/2024 12/21/2023 12/22/2022 Collection Time 07:48 AM 06:23 AM 07:54 AM Order Date 06/30/2024 12/21/2023 12/22/2022 Sodium 143 (Ref Range: 135-145 mmol/L) 141 (Ref Range: 135-145 mmol/L) 143 (Ref Range: 135-145 mmol/L) Bilirubin Total 1.2 H (Ref Range: 0.0-1.0 mg/dL) 1.1 H (Ref Range: 0.0-1.0 mg/dL) 0.9 (Ref Range: 0.0-1.0 mg/dL) Aspartate Amino Transferase 38 H (Ref Range: 5-31 U/L) 45 H (Ref Range: 5-31 U/L) 25 (Ref Range: 5-31 U/L) Alanine Aminotransferase 35 H (Ref Range: 0-31 U/L) 40 H (Ref Range: 0-31 U/L) 39 H (Ref Range: 0-31 U/L) Total Protein 7.8 (Ref Range: 6.5-8.0 g/dL) 7.8 (Ref Range: 6.5-8.0 g/dL) 7.4 (Ref Range: 6.5-8.0 g/dL) Albumin Level 4.3 (Ref Range: 3.5-5.0 g/dL) 4.6 (Ref Range: 3.5-5.0 g/dL) 4.2 (Ref Range: 3.5-5.0 g/dL) Alkaline Phosphatase 116 (Ref Range: 39-117 U/L) 138 H (Ref Range: 39-117 U/L) 108 (Ref Range: 39-117 U/L) Potassium 4.1 (Ref Range: 3.3-5.1 mmol/L) 4.5 (Ref Range: 3.3-5.1 mmol/L) 4.1 (Ref Range: 3.3-5.1 mmol/L) Chloride 107 (Ref Range: 96-108 mmol/L) 105 (Ref Range: 96-108 mmol/L) 108 (Ref Range: 96-108 mmol/L) Carbon Dioxide 25 (Ref Range: 22-29 mmol/L) 27 (Ref Range: 22-29 mmol/L) 24 (Ref Range: 22-29 mmol/L) Anion Gap 15 (Ref Range: 12-20) 14 (Ref Range: 12-20) 15 (Ref Range: 12-20) Blood Urea Nitrogen 12 (Ref Range: 9-16 mg/dL) 10 (Ref Range: 9-16 mg/dL) 13 (Ref Range: 9-16 mg/dL) Creatinine 0.80 (Ref Range: 0.5-1.4 mg/dL) 0.99 (Ref Range: 0.5-1.4 mg/dL) 0.83 (Ref Range: 0.5-1.4 mg/dL) Estimated Glomerular Filt Rate > 60 59 > 60 Glucose Fasting 103 H (Ref Range: 60-99 mg/dL) 100 H (Ref Range: 60-99 mg/dL) 107 H (Ref Range: 60-99 mg/dL) Calcium 9.9 (Ref Range: 8.4-10.2 mg/dL) 10.2 (Ref Range: 8.4-10.2 mg/dL) 9.9 (Ref Range: 8.4-10.2 mg/dL) ???Lab:Ferritin (Order Date - 06/30/2024) (Collection Date & Time - 06/30/2024 07:48 AM)?ValueReference Range?[id number] - ng/mL * Lab:Lipid Panel * Collection Date 06/30/2024 12/21/2023 12/22/2022 Collection Time 07:48 AM 06:23 AM 07:54 AM Order Date 06/30/2024 12/21/2023 12/22/2022 Triglycerides 177 H (Ref Range: <150 mg/dL) 135 (Ref Range: <150 mg/dL) 118 (Ref Range: mg/dL) Cholesterol 255 H (Ref Range: <200 mg/dL) 367 H (Ref Range: <200 mg/dL) 270 (Ref Range: mg/dL) LDL Cholesterol Calculated 167 H (Ref Range: <100 mg/dL) 269 H (Ref Range: <100 mg/dL) 192 (Ref Range: mg/dl) HDL Cholesterol 53 (Ref Range: >40 mg/dL) 71 (Ref Range: >40 mg/dL) 55 (Ref Range: mg/dL) * Lab:Free T4 (Free Thyroxine) * Collection Date 06/30/2024 12/21/2023 12/22/2022 Collection Time 07:48 AM 06:23 AM 07:54 AM Order Date 06/30/2024 12/21/2023 12/22/2022 Free T4 (Free Thyroxine) 1.31 (Ref Range: 0.71-1.85 ng/dL) 0.61 L (Ref Range: 0.71-1.85 ng/dL) 1.23 (Ref Range: 0.71-1.85 ng/dL) * Examination: G eneral Examination: GENERAL APPEARANCE: p lemarilee, well nourished, well developed, in no acute distress, calm and relaxed, obese, woman. HEAD: a traumatic, normocephalic. EYES: e mariam, perrla, anicteric, conjugate. EARS: n ormal. NOSE: s eptum intact. ORAL CAVITY: n ormal, unremarkable. NECK/THYROID: n o jugular venous distention, no carotid bruit, thyroid not palpable. LYMPH NODES: n o enlarged lymph nodes,spleen normal. SKIN: n o suspicious lesions, anicteric. HEART: n o clicks, gallops, murmurs, or rubs, regular rhythm, S1, S2 normal, no s3, or vascular bruits. LUNGS: c lear to auscultation . BREASTS: N ot examined. ABDOMEN: b owel sounds normal, no ascites, no organomegaly, no mass. RECTAL EXAM: n ot examined. MUSCULOSKELETAL: e xtremities unremarkable, no clubbing, cyanosis or edema. PERIPHERAL PULSES: n ormal. NEUROLOGIC: a lert and oriented, cranial nerves 2-12 grossly intact, deep tendon reflexes 2+ symmetrical, motor strength normal upper and lower extremities, sensory exam intact. PSYCH: a lert, oriented. - : S houlder Examination - No swelling in the legs, Shoulder joint is fine, Possible calcific tenderness, Limited mobility in shoulder, Pain in arm and shoulder, Possible pinched nerve or tears in rotator cuff muscles. Assessment: * Assessment: 1. A cquired hypothyroidism - E03.9 (Primary) N otes :Her free T4 level is now in the normal range. Her TSH is low normal. He feels euthyroid. Her heart rate is normal and her weight is stable. Her thyroid function tests will be followed and her dose will be optimized. 2 . A cute pain of right shoulder - M25.511 N otes :I have ordered an x-ray of the right shoulder. This appears to the rotator cuff tear. I have referred her to orthopedic surgery. 3 . H yperlipidemia, unspecified hyperlipidemia type - E78.5 4 . I li deficiency anemia due to chronic blood loss - D50.0 N otes :She is no longer iron deficient. This will be monitored however. Plan: * Treatment: 2. A cute pain of right shoulder L AB: PROFILE, FASTING (COMPREHENSIVE METABOLIC) L AB: TSH (THYROID STIMULATING HORMONE) L AB: CBC w DIFF L AB: Lipid Panel L AB: Free T4 (Free Thyroxine) I maging: XR SHOULDER RT 2 VIEWS Referral To:[facility] Orthopedic Surgery Reason:right shoulder pain 3. H yperlipidemia, unspecified hyperlipidemia type L AB: PROFILE, FASTING (COMPREHENSIVE METABOLIC) L AB: TSH (THYROID STIMULATING HORMONE) L AB: CBC w DIFF L AB: Lipid Panel L AB: Free T4 (Free Thyroxine) 4. I li deficiency anemia due to chronic blood loss L AB: PROFILE, FASTING (COMPREHENSIVE METABOLIC) L AB: TSH (THYROID STIMULATING HORMONE) L AB: CBC w DIFF L AB: Lipid Panel L AB: Free T4 (Free Thyroxine) 5. O thers Continue Levothyroxine Sodium Tablet, 112 MCG, TAKE 1 TABLET BY MOUTH EVERY DAY IN THE MORNING FOR 90 DAYS. * Procedure Codes: * Preventive Medicine: Counseling: C are goal follow-up plan: Counseling for abnormal BMI given Y es Above Normal BMI Follow-up D ietary management education, guidance, and counseling, Dietary needs education, Exercise promotion: strength training, Exercise promotion: stretching, Feeding regime, Giving encouragement to exercise, Lifestyle education regarding diet, Nutrition / feeding management, Nutrition therapy, Prescribed activity/exercise education, Prescribed diet education, Prescribed dietary intake, Special diet education, Weight monitoring , Intervention, Order not done: Medical or Other reason not done * Follow Up: 3 Months, In about 3 months (Reason: ov review labs, Follow-up on arm and shoulder pain and osteopenia) * Images: * Sign off status: Completed true * Provider: Solo Ahn MD Date: 0 07/07/2024 Generated for Manuel rasheed/Mojgan/Lamin on: 05/25/2024 07:18 AM EST History and Physical Notes * HPI (History of Present Illness) Category Sub-Category Detail Notes COVID-19 Screening Questions Have you had any new onset fever, chills, cough, congestion, sore throat, shortness of breath, muscle aches?: No Examination Category Sub-Category Detail Notes General Examination GENERAL APPEARANCE: pleasant , well nourished, well developed, in no acute distress, calm and relaxed, obese, woman HEAD: atraumatic, normocep halic EYES: eomi, perrla, anicte aurelia, conjugate EARS: normal NOSE: septum intact NECK/THYROID: no jugular venous di stention, no carotid bruit, thyroid not palpable HEART: no clicks, gallops, murmurs, or rubs, regular rhythm, S1, S2 normal, no s3, or vascular bruits LUNGS: clear to auscultatio n ABDOMEN: bowel sounds normal, no ascites, no organomegaly, no mass NEUROLOGIC: alert and oriented, cranial nerves 2-12 grossly intact, deep tendon reflexes 2+ symmetrical, motor strength normal upper and lower extremities, sensory exam intact SKIN: no suspicious lesion s, anicteric PERIPHERAL PULSES: normal BREASTS: Not examined MUSCULOSKELETAL: extremities unremark able, no clubbing, cyanosis or edema LYMPH NODES: no enlarged lymph no alex,spleen normal RECTAL EXAM: not examined PSYCH: alert, oriented ORAL CAVITY: normal, unremarkable Consultation Request Notes Referral Date Referring Provider Referred Provider Not es 07/07/2024 Anabelle [facility], Orthopedic Surgeons right shoulder pain
--- OUTSIDE RECORDS SUMMARY | 2024-07-14 06:13 | XMS_ITS ---
Author Organization Clem Ahn III, MD Address [address] [place] [address] Care Team Providers Care Acquisition Marketing Coordinator Name Role Phone Dr. Clem Ahn III Primary Care Provider REASON FOR VISIT Message Social History Sex Assigned At : Social History Observation Description Sex Assigned At Female Encounters Encounter Location Date Provider Diagnosis Clem Ahn III, MD [address] [place] [address] [place] [address] 07/14/2024 Clem Ahn Plan Of Treatment Next Appt Details Provider Name:Clem Ahn , 04/01/2025 10:15:00 AM, [address] [place] [address] [place], [address], Provider Name:Clem Ahn , 05/05/2025 04:00:00 PM, [address] [place] [address] [place], [address], Provider Name:Clem Ahn , 01/04/2026 04:00:00 PM, [address] [place] [address] [place], [address], Progress Notes * ANGELA LERMADOB:[birth year] (54 yo F)Acc No.[id number]:07/14/2024 Patient: Aliza ROCKANGELA PRESCOTT :1970 A ge:54 Y S ex:Female Address: [address], [facility], [address] * true * Date: Generated for Manuel rasheed/Mojgan/Lamin on: 05/25/2024 07:17 AM EST
--- OUTSIDE RECORDS SUMMARY | 2024-09-29 09:45 | XMS_ITS ---
Author Organization Clem Ahn III, MD Address [address] [place] [facility] [place] [address] Care Team Providers Care Wellness Consultant Name Role Phone Dr. Clem Ahn III Primary Care Provider [phone] REASON FOR VISIT Follow up Social History Sex Assigned At : Social History Observation Description Sex Assigned At Female Encounters Encounter Location Date Provider Diagnosis Clem Ahn III, MD [address] [place] [address] [address] [place] [facility] [place] [address] 09/29/2024 Clem Ahn Plan Of Treatment Next Appt Details Provider Name:Clem Ahn , 04/01/2025 10:15:00 AM, [address] [place] [address] [place], [address], Provider Name:Clem Ahn , 05/05/2025 04:00:00 PM, [address] [place] [address] [place], [address], Provider Name:Clem Ahn , 01/04/2026 04:00:00 PM, [address] [place] [address] [place], [address], Progress Notes * ANGELA LERMADOB:[birth year] (55 yo F)Acc No.[id number]:09/29/2024 Progress Notes Patient: Aliza ROCKANGELA PRESCOTT Provider: Solo Ahn MD :1970 A ge:54 Y S ex:Female Date:09/29/2024 Address: [facility] Subjective: * Chief Complaints: * 1 . Follow up. * Medical History: Objective: * Vitals: Assessment: Plan: * Treatment: * Images: * The named appointment provid er may or may not be the originator of this progress note, and it is not deemed complete until electronically signed by the appointment provider. Sign off status: Pending * Provider: Solo Ahn MD Date: 0 09/29/2024 Generated for Manuel rasheed/Mojgan/Claudineitting on: 1 05/25/2024 07:18 AM EST
--- OUTSIDE RECORDS SUMMARY | 2024-12-30 11:00 | XMS_ITS ---
Author Organization Clem Ahn III, MD Address [address] [place] [address] Care Team Providers Care Nike Athlete Name Role Phone Dr. Clme Ahn III Primary Care Provider Allergies Allergen (clinical drug ingredient) Drug/Non Drug Allergy documented on EMR Reaction Allergy Type Onset Date Status No Known Drug Allergy Unknown Drug Allergy Active No Known Food Allergy Unknown Drug Allergy Active Reason For Referral Reason Consult and Treat Screening Colonoscopy Diagnosis 1 Screen for colon can cer (Z12.11) Referral Organization Clem Ahn III, MD Referring Provider First Name Celm Referring Provider Last Name Anabelle Referring Provider Speciality Internal M edicine Referred Provider Clem Johnson Referred Provider Specialty Gastroentero logy General Notes Kimi Carlisle 01/05/2025 10:48:47 AM > Referral and progress note Keily ballard Suzanne CMA 2025 10:06:58 AM >Emperatriz from Dr Fuller and Alex office they tried to call patient three times and pt has not returned the call . I called patient myself and LM to have her call our office back to encourage her to call to set up this appt Referral Priority Routine REASON FOR VISIT annual exam Medications Medication [...] Observation Description Sex Assigned At Female Tobacco Control (Standard) Question Answer Notes Tobacco use: Nonsmoker Additional Findings: Tobacco non-user Aggressive nonsmoker AUDIT-C (Standard) Question Answer Notes Did you have a drink contain ing alcohol in the past year? Yes How often did you have six o r more drinks on one occasion in the past year? 2 to 4 times a month (2 points) How many drinks did you have on a typical day when you were drinking in the past year? 1 or 2 drinks (0 point) How often did you have a dri nk containing alcohol in the past year? Never (0 point) Points 2 Interpretation Negative Vital Signs Temperature 97.2 degrees Fahrenheit 12/31/19 25 Blood pressure systolic 130 mm Hg 12/31/19 25 Blood pressure diastolic 70 mm Hg 025 Heart Rate 73 /min 12/30/2024 Height 63 in 12/30/2024 Weight 181 lbs 12/30/2024 BMI 32.06 kg/m2 12/30/2024 Encounters Encounter Location Date Provider Diagnosis Clem Ahn III, MD [address] [place] [address] [place] [address] 12/30/2024 Clem Ahn Acquired hypothyroid ism E03.9 ; Obesity (BMI 30.0-34.9) E66.9 ; Hyperlipidemia, unspecified hyperlipidemia type E78.5 ; Anemia, unspecified type D64.9 ; Malignant neoplasm of unspecified site of left female breast C50.912 ; Breast screening Z12.31 and Hypertension I10 Assessments Encounter Date Diagnosis (ICD Code) Assessment Notes Treat ment Notes Treatment Clinical Notes 12/30/2024 Acquired hypothyroidism (ICD-10 - E03.9) Her free T4 level is now in the normal range. Her TSH is also normal. He feels euthyroid. Her heart rate is normal and her weight is stable. Her thyroid function tests will be followed and her dose will be optimized. 12/30/2024 Obesity (BMI 30.0-34.9) (ICD-10 - E66.9) Her weight has been stable with a BMI in the obese range. We discussed lifestyle modification and diet at length today. We made a plan to lose weight at a rate of 1 pound per week. 12/30/2024 Hyperlipidemia, unspecified hyperlipidemia type (ICD-10 - E78.5) Her total cholesterol is 276 with a triglycerides of 1:30 HDL 54 and LDL 196. As I have before, I offered to give her a statin medication. She declined vehemently states she does not wish to take a statin medication for her cholesterol. 12/30/2024 Anemia, unspecified type (ICD-10 - D64.9) She has been continued on her iron supplements. 12/30/2024 Malignant neoplasm o f unspecified site of left female breast (ICD-10 - C50.912) Both breasts were unremarkable except for scars. There is no sign of recurrent disease or new primary. 12/30/2024 Breast screening (ICD-10 - Z12.31) Annual screening mammogram has been ordered. 12/30/2024 Hypertension (ICD-10 - I10) Her blood pressure is in the normal devlin. She has been compliant with her medications. We stressed the wisdom of progressive weight loss and sodium restriction and regular physical activity. Plan Of Treatment Medication Medication Name Sig Start Date Stop Date Notes Levothyroxine Sodium 112 MCG TAKE 1 TABL ET BY MOUTH EVERY DAY IN THE MORNING FOR 90 DAYS Anastrozole 1 MG Oral Pending Test Test Name Order Date PROFILE, FASTING (COMPREHENSIVE METABOLI C) 12/30/2024 TSH (THYROID STIMULATING HORMONE) 2024 CBC w DIFF 12/30/2024 Lipid Panel 12/30/2024 Free T4 (Free Thyroxine) 12/30/2024 MM tomosynthesis screening BI 12/30/2024 Referrals Referral Date Details 12/30/2024 12/30/2024, Consult and Treat Screening Colonoscopy, Clem Johnson Next Appt Details Follow Up: 4 Months, Reason: OV review labs Provider Name:Clem Ahn , 04/01/2025 10:15:00 AM, [address] [facility], [place], [address], Provider Name:Clem Ahn , 05/05/2025 04:00:00 PM, [address] [facility] [address] [address] [place], [address], Provider Name:Clem Ahn , 01/04/2026 04:00:00 PM, [address] [facility] [address], [address], Progress Notes * ANGELA HASSAN JDOB:[birth year] (54 yo F)Acc No.[id number]:12/30/2024 Progress Notes Patient: ANGELA MAYFIELD Provider: Solo Ahn MD :1970 A ge:54 Y S ex:Female Date:12/30/2024 Address:[address] [place], [place] [id number] Subjective: * Chief Complaints: * A nnual exam * HPI: D epression Screening: S he returns at the age of 54 for her annual physical examination. She is followed here for hyperlipidemia, hypothyroidism, iron deficiency, obesity, left breast cancer and hypertension. She has been referred to Dr. Johnson for her first screening colonoscopy. She is due for a mammogram at [facility] which we have scheduled. He denies any new problems, new allergies, hospitalizations or emergency room visits. She has been compliant with all of her medications. PHQ-9 L ittle interest or pleasure in [...] shortness of breath, muscle aches? N o S ZENAIDA Questions: SDOH Questions I n the past year have you been worried about losing your housing? N o I n the past year have you or any family members you live with been unable to get any of the following when it was really needed? Check all that apply: N one * ROS: G eneral/Constitutional: pain R ight shoulder, lumbar spine. C hills d enies. F atigue a dmits. F ever d enies. E NT: Decreased hearing d enies. R espiratory: Cough d enies. C ardiovascular: Chest pain with exertion d enies. D yspnea on exertion?denies. S hortness of breath d enies. G astrointestinal: Constipation o ccasional. D ecreased appetite d enies. D iarrhea d enies. H eartburn d enies. N ausea d enies. R ectal bleeding d enies. V omiting d enies. H ematology: bruising d enies. p etechiae d enies. S wollen glands n one have been noted. G enitourinary: Frequent urination d enies. M usculoskeletal: Muscle aches d enies. P ainful joints R ight shoulder. S ciatica d enies. W eakness d [...] Social History: T obacco Use: T obacco Control (Standard) T obacco use: N onsmoker A dditional Findings: Tobacco non-user A ggressive nonsmoker D rugs/Alcohol: D rugs H ave you used drugs other than those for medical reasons in the past 12 months? N o D rug/Alcohol: A MOHINDER-C (Standard) D id you have a drink containing alcohol in the past year? Y es H ow often did you have six or more drinks on one occasion in the past year? 2 to 4 times a month (2 points) H ow many drinks did you have on a typical day when you were drinking in the past year? 1 or 2 drinks (0 point) H ow often did you have a drink containing alcohol in the past year? N ever (0 point) P oints 2 I nterpretation N egative S he has been to [place] for many years. She works at [employer] and in [place], [place]. They have several children who are healthy and well. * Medications: T akingLevothyroxine Sodium 112 MCG Tablet TAKE 1 TABLET BY MOUTH EVERY DAY IN THE MORNING FOR 90 DAYS Anastrozole 1 MG Tablet Oral Medication List reviewed and reconciled with the patientTaking Levothyroxine Sodium 112 MCG Tablet TAKE 1 TABLET BY MOUTH EVERY DAY IN THE MORNING FOR 90 DAYS Taking Anastrozole 1 MG Tablet Oral Medication List reviewed and reconciled with the patient * Allergies: N o Known Drug AllergyNo Known Food Allergyno[Allergies Verified] Objective: * Vitals: H t: 63, Wt: 181, BMI:32.06, BP: 130/70, HR: 73, Temp: 97.2, Wt-k.1. * P ast Orders: Lab:Thyroid Stimulating Horm one * Collection Date 12/26/2024 06/30/2024 12/21/2023 Collection Time 07:36 AM 07:48 AM 06:23 AM Order Date 12/26/2024 06/30/2024 12/21/2023 Thyroid Stimulating Hormone 0.86 (Ref Range: 0.32-4.0 uIU/mL) 0.13 L (Ref Range: 0.32-4.0 uIU/mL) > 100.00 H (Ref Range: 0.32-4.0 uIU/mL) * Lab:Complete Blood Count Aut o Diff * Collection Date 12/26/2024 06/30/2024 12/21/2023 Collection Time 07:36 AM 07:48 AM 06:23 AM Order Date 12/26/2024 06/30/2024 12/21/2023 White Blood Count 5.5 (Ref Range: 4.8-10.8 X10*3/uL) 6.2 (Ref Range: 4.8-10.8 X10*3/uL) 5.9 (Ref Range: 4.8-10.8 X10*3/uL) Red Blood Count 5.01 (Ref Range: 4.20-5.50 X10*6/uL) 5.17 (Ref Range: 4.20-5.50 X10*6/uL) 5.44 (Ref Range: 4.20-5.50 X10*6/uL) Hemoglobin 14.5 (Ref Range: 12.0-16.0 g/dl) 15.2 (Ref Range: 12.0-16.0 g/dl) 16.1 H (Ref Range: 12.0-16.0 g/dl) Hematocrit 42.7 (Ref Range: 37.0-47.0 %) 44.3 (Ref Range: 37.0-47.0 %) 46.6 (Ref Range: 37.0-47.0 %) Mean Corpuscular Volume 85.2 (Ref Range: 80.0-98.0 fL) 85.7 (Ref Range: 80.0-98.0 fL) 85.7 (Ref Range: 80.0-98.0 fL) Mean Corpuscular Hemoglobin 28.9 (Ref Range: 27.0-33.0 pg) 29.4 (Ref Range: 27.0-33.0 pg) 29.6 (Ref Range: 27.0-33.0 pg) Mean Corpuscular HGB Conc 34.0 (Ref Range: 31.0-35.0 g/dl) 34.3 (Ref Range: 31.0-35.0 g/dl) 34.5 (Ref Range: 31.0-35.0 g/dl) Red Cell Distribution Width 12.3 (Ref Range: 11.0-16.0 %) 12.0 (Ref Range: 11.0-16.0 %) 13.2 (Ref Range: 11.0-16.0 %) Platelet Count 248 (Ref Range: 160-400 X10*3/uL) 274 (Ref Range: 160-400 X10*3/uL) 257 (Ref Range: 160-400 X10*3/uL) Mean Platelet Volume 9.9 (Ref Range: 9.4-12.3 fL) 9.3 L (Ref Range: 9.4-12.3 fL) 9.8 (Ref Range: 9.4-12.3 fL) Neutrophils Percent Auto 56.6 (Ref Range: 45-73 %) 45.6 (Ref Range: 45-73 %) 47.0 (Ref Range: 45-73 %) Imm Gran Pct Auto 0.5 H (Ref Range: 0.0-0.4 %) 0.5 H (Ref Range: 0.0-0.4 %) 0.3 (Ref Range: 0.0-0.4 %) Lymphocytes Percent Auto 26.9 (Ref Range: 20-40 %) 28.5 (Ref Range: 20-40 %) 32.9 (Ref Range: 20-40 %) Monocytes Percent Auto 9.5 (Ref Range: 2-11 %) 11.0 (Ref Range: 2-11 %) 8.9 (Ref Range: 2-11 %) Eosinophils Percent Auto 4.9 H (Ref Range: 0-4 %) 12.9 H (Ref Range: 0-4 %) 8.9 H (Ref Range: 0-4 %) Basophils Percent Auto 1.6 (Ref Range: 0-2 %) 1.5 (Ref Range: 0-2 %) 2.0 (Ref Range: 0-2 %) NRBC Pct Auto 0.0 (Ref Range: 0.0-0.2 /100WBC) 0.0 (Ref Range: 0.0-0.2 /100WBC) 0.0 (Ref Range: 0.0-0.2 /100WBC) Neutrophils Absolute Auto 3.1 (Ref Range: 2.0-8.3 x10*3/uL) 2.8 (Ref Range: 2.0-8.3 x10*3/uL) 2.8 (Ref Range: 2.0-8.3 x10*3/uL) Imm Gran Abs Auto 0.03 (Ref Range: 0.00-0.03 X10*3/uL) 0.03 (Ref Range: 0.00-0.03 X10*3/uL) 0.02 (Ref Range: 0.00-0.03 X10*3/uL) Lymphocytes Absolute Auto 1.5 (Ref Range: 1.2-4.9 X10*3/uL) 1.8 (Ref Range: 1.2-4.9 X10*3/uL) 2.0 (Ref Range: 1.2-4.9 X10*3/uL) Monocytes Absolute Auto 0.5 (Ref Range: 0.1-1.2 X10*3/uL) 0.7 (Ref Range: 0.1-1.2 X10*3/uL) 0.5 (Ref Range: 0.1-1.2 X10*3/uL) Eosinophils Absolute Auto 0.3 (Ref Range: 0.0-0.4 X10*3/uL) 0.8 H (Ref Range: 0.0-0.4 X10*3/uL) 0.5 H (Ref Range: 0.0-0.4 X10*3/uL) Basophils Absolute Auto 0.1 (Ref Range: 0.0-0.2 X10*3/uL) 0.1 (Ref Range: 0.0-0.2 X10*3/uL) 0.1 (Ref Range: 0.0-0.2 X10*3/uL) NRBC Abs Auto 0.000 (Ref Range: 0.0-0.012 X10*3/uL) 0.000 (Ref Range: 0.0-0.012 X10*3/uL) 0.000 (Ref Range: 0.0-0.012 X10*3/uL) * Lab:Ban blanco Fast * Collection Date 12/26/2024 06/30/2024 12/21/2023 Collection Time 07:36 AM 07:48 AM 06:23 AM Order Date 12/26/2024 06/30/2024 12/21/2023 Sodium 140 (Ref Range: 135-145 mmol/L) 143 (Ref Range: 135-145 mmol/L) 141 (Ref Range: 135-145 mmol/L) Bilirubin Total 0.8 (Ref Range: 0.0-1.0 mg/dL) 1.2 H (Ref Range: 0.0-1.0 mg/dL) 1.1 H (Ref Range: 0.0-1.0 mg/dL) Aspartate Amino Transferase 36 H (Ref Range: 5-31 U/L) 38 H (Ref Range: 5-31 U/L) 45 H (Ref Range: 5-31 U/L) Alanine Aminotransferase 43 H (Ref Range: 0-31 U/L) 35 H (Ref Range: 0-31 U/L) 40 H (Ref Range: 0-31 U/L) Total Protein 7.1 (Ref Range: 6.5-8.0 g/dL) 7.8 (Ref Range: 6.5-8.0 g/dL) 7.8 (Ref Range: 6.5-8.0 g/dL) Albumin Level 4.3 (Ref Range: 3.5-5.0 g/dL) 4.3 (Ref Range: 3.5-5.0 g/dL) 4.6 (Ref Range: 3.5-5.0 g/dL) Alkaline Phosphatase 132 H (Ref Range: 39-117 U/L) 116 (Ref Range: 39-117 U/L) 138 H (Ref Range: 39-117 U/L) Potassium 4.4 (Ref Range: 3.3-5.1 mmol/L) 4.1 (Ref Range: 3.3-5.1 mmol/L) 4.5 (Ref Range: 3.3-5.1 mmol/L) Chloride 109 H (Ref Range: 96-108 mmol/L) 107 (Ref Range: 96-108 mmol/L) 105 (Ref Range: 96-108 mmol/L) Carbon Dioxide 24 (Ref Range: 22-29 mmol/L) 25 (Ref Range: 22-29 mmol/L) 27 (Ref Range: 22-29 mmol/L) Anion Gap 11 L (Ref Range: 12-20) 15 (Ref Range: 12-20) 14 (Ref Range: 12-20) Blood Urea Nitrogen 14 (Ref Range: 9-16 mg/dL) 12 (Ref Range: 9-16 mg/dL) 10 (Ref Range: 9-16 mg/dL) Creatinine 0.77 (Ref Range: 0.5-1.4 mg/dL) 0.80 (Ref Range: 0.5-1.4 mg/dL) 0.99 (Ref Range: 0.5-1.4 mg/dL) Estimated Glomerular Filt Rate > 60 > 60 59 Glucose Fasting 97 (Ref Range: 60-99 mg/dL) 103 H (Ref Range: 60-99 mg/dL) 100 H (Ref Range: 60-99 mg/dL) Calcium 9.4 (Ref Range: 8.4-10.2 mg/dL) 9.9 (Ref Range: 8.4-10.2 mg/dL) 10.2 (Ref Range: 8.4-10.2 mg/dL) * Lab:Lipid Panel * Collection Date 12/26/2024 06/30/2024 12/21/2023 Collection Time 07:36 AM 07:48 AM 06:23 AM Order Date 12/26/2024 06/30/2024 12/21/2023 Triglycerides 130 (Ref Range: <150 mg/dL) 177 H (Ref Range: <150 mg/dL) 135 (Ref Range: <150 mg/dL) Cholesterol 276 H (Ref Range: <200 mg/dL) 255 H (Ref Range: <200 mg/dL) 367 H (Ref Range: <200 mg/dL) LDL Cholesterol Calculated 196 H (Ref Range: <100 mg/dL) 167 H (Ref Range: <100 mg/dL) 269 H (Ref Range: <100 mg/dL) HDL Cholesterol 54 (Ref Range: >40 mg/dL) 53 (Ref Range: >40 mg/dL) 71 (Ref Range: >40 mg/dL) * Lab:Free T4 (Free Thyroxine) * Collection Date 12/26/2024 06/30/2024 12/21/2023 Collection Time 07:36 AM 07:48 AM 06:23 AM Order Date 12/26/2024 06/30/2024 12/21/2023 Free T4 (Free Thyroxine) 1.17 (Ref Range: 0.71-1.85 ng/dL) 1.31 (Ref Range: 0.71-1.85 ng/dL) 0.61 L (Ref Range: 0.71-1.85 ng/dL) * Examination: G eneral Examination: GENERAL APPEARANCE: p tatum, well nourished, well developed, in no acute distress, calm and relaxed: obese: woman. HEAD: a traumatic, normocephalic. EYES: e [...] sounds normal, no ascites, no organomegaly, no mass: centripital obesity. RECTAL EXAM: n ot examined. MUSCULOSKELETAL: e xtremities unremarkable, no clubbing, cyanosis or edema, Mild limitation right shoulder range of motion. PERIPHERAL PULSES: n ormal. NEUROLOGIC: a lert and oriented, cranial nerves 2-12 grossly intact, deep tendon reflexes 2+ symmetrical, motor strength normal upper and lower extremities, sensory exam intact. PSYCH: a lert, oriented. Assessment: * Assessment: 1. O besity (BMI 30.0-34.9) - E66.9 (Primary) N otes :Her weight has been stable with a BMI in the obese range. We discussed lifestyle modification and diet at length today. We made a plan to lose weight at a rate of 1 pound per week. 2 . A cquired hypothyroidism - E03.9 N otes :Her free T4 level is now in the normal range. Her TSH is also normal. He feels euthyroid. Her heart rate is normal and her weight is stable. Her thyroid function tests will be followed and her dose will be optimized. 3 . H yperlipidemia, unspecified hyperlipidemia type - E78.5 N otes :Her total cholesterol is 276 with a triglycerides of 1:30 HDL 54 and LDL 196. As I have before, I offered to give her a statin medication. She declined vehemently states she does not wish to take a statin medication for her cholesterol. 4 . A nemia, unspecified type - D64.9 N otes :She has been continued on her iron supplements. 5 . M alignant neoplasm of unspecified site of left female breast - C50.912? Notes :Both breasts were unremarkable except for scars. There is no sign of recurrent disease or new primary. 6 . B reast screening - Z12.31 N otes :Annual screening mammogram has been ordered. 7 . H ypertension - I10 N otes :Her blood pressure is in the normal devlin. She has been compliant with her medications. We stressed the wisdom of progressive weight loss and sodium restriction and regular physical activity. Plan: * Treatment: 2. A cquired hypothyroidism Continue Anastrozole Tablet, 1 MG, Oral. L AB: PROFILE, FASTING (COMPREHENSIVE METABOLIC) L AB: TSH (THYROID STIMULATING HORMONE) L AB: CBC w DIFF L AB: Lipid Panel L AB: Free T4 (Free Thyroxine) 3. H yperlipidemia, unspecified hyperlipidemia type L AB: PROFILE, FASTING (COMPREHENSIVE METABOLIC) L AB: TSH (THYROID STIMULATING HORMONE) L AB: CBC w DIFF L AB: Lipid Panel L AB: Free T4 (Free Thyroxine) 4. A nemia, unspecified type L AB: PROFILE, FASTING (COMPREHENSIVE METABOLIC) L AB: TSH (THYROID STIMULATING HORMONE) L AB: CBC w DIFF L AB: Lipid Panel L AB: Free T4 (Free Thyroxine) 5. B reast screening I maging: MM tomosynthesis screening BI 6. O thers Continue Levothyroxine Sodium Tablet, 112 MCG, TAKE 1 TABLET BY MOUTH EVERY DAY IN THE MORNING FOR 90 DAYS. Referral To:[facility] Reason:Consult and Treat Screening Colonoscopy * Procedure Codes: * Preventive Medicine: Counseling: [...] Other reason not done * Follow Up: 4 Months (Reason: OV review labs) * Images: * Sign off status: Completed true * Provider: Solo Ahn MD Date: 0 12/30/2024 Generated for Ulyssesi kathya/Mojgan/eTransmitting on: 1 05/25/2024 07:18 AM EST History and Physical [...] throat, shortness of breath, muscle aches?: No SDOH Questions SDOH Questions In the [...] developed, in no acute distress, calm and relaxed: obese: woman HEAD: atraumatic, normocep halic EYES: eomi, perrla, anicte aurelia, conjugate EARS: normal NOSE: septum intact NECK/THYROID: no jugular venous di stention, no carotid bruit, thyroid normal HEART: no clicks, gallops, murmurs, or rubs, regular rhythm, S1, S2 normal, no s3, or vascular bruits LUNGS: clear to auscultatio n ABDOMEN: bowel sounds normal, no ascites, no organomegaly, no mass: centripital obesity NEUROLOGIC: alert and oriented, cranial nerves 2-12 grossly intact, deep tendon reflexes 2+ symmetrical, motor strength normal upper and lower extremities, sensory exam intact SKIN: no suspicious lesion s, anicteric PERIPHERAL PULSES: normal BREASTS: Not examined MUSCULOSKELETAL: extremities unremark able, no clubbing, cyanosis or edema, Mild limitation right shoulder range of motion LYMPH NODES: no enlarged lymph no alex,spleen normal RECTAL EXAM: not examined PSYCH: alert, oriented ORAL CAVITY: normal, unremarkable Consultation Request Notes Referral Date Referring Provider Referred Provider Not es 12/30/2024 Clem Ahn Robert Consult and T reat Screening Colonoscopy
--- OUTSIDE RECORDS SUMMARY | 2025-03-03 06:00 | XMS_ITS ---
Author Organization Clem Ahn III, MD Address [address] [place] [address] Care Team Providers Care Gem Expert Name Role Phone Dr. Clem Ahn III Primary Care Provider Allergies Allergen (clinical drug ingredient) Drug/Non Drug Allergy documented on EMR Reaction Allergy Type Onset Date Status No Known Drug Allergy Unknown Drug Allergy Active No Known Food Allergy Unknown Drug Allergy Active Results Component Value Reference Range Notes Free T4 (Free Thyroxine) Reviewed date:03/04/2025 09:53:26 AM Interpretation: Performing Lab:[facility], [address] [place] [id number] Notes/Report: Free T4 (Free Thyroxine) 0.87 0.71-1.85 ng/dL REASON FOR VISIT Feeling unwell, Dizziness, Recent fever of 102, Hypothyroidism, Hyperlipidemia, Obesity, Left breast cancer, Hypertension Medications Medication SIG (Take, Route, Frequency, Duration) [...] Nonsmoker Additional Findings: Tobacco non-user Aggressive nonsmoker Problems Problem Type SNOMED Code ICD Code Onset Dates Problem Status W/U Status Risk Notes Problem [id number] Abnormal liver function tests (R79.89) Active confirmed Her alkaline phosphatase is increased to 199 with mild elevation of the SGOT and SSGPT. Her bilirubin is normal. Review of older value shows she has been normal in the past but slightly abnormal increasingly for the last 18 months. This will be evaluated. Vital Signs Temperature 98.3 degrees Fahrenheit 03/03/20 25 Blood pressure systolic 139 mm Hg 03/03/20 25 Blood pressure diastolic 78 mm Hg 025 Heart Rate 96 /min 03/03/2025 Respiratory Rate 16 /min 03/03/2025 Height 63 in 03/03/2025 Weight 181 lbs 03/03/2025 BMI 32.06 kg/m2 03/03/2025 Encounters Encounter Location Date Provider Diagnosis Clem Ahn III, MD [address] [place] [address] [place] [address] 03/03/2025 Clem Ahn Acquired hypothyroid ism E03.9 ; Hyperlipidemia, unspecified hyperlipidemia type E78.5 ; Obesity (BMI 30.0-34.9) E66.9 ; Hypertension I10 ; Anemia, unspecified type D64.9 ; Iron deficiency anemia due to chronic blood loss D50.0 ; Malignant neoplasm of unspecified site of left female breast C50.912 ; Estrogen receptor positive status [ER+] Z17.0 and Abnormal liver function tests R79.89 Assessments Encounter Date Diagnosis (ICD Code) Assessment Notes Treat ment Notes Treatment Clinical Notes 03/03/2025 Acquired hypothyroidism (ICD-10 - E03.9) It appears that she has run out of refills for her thyroid medicatioon and has not been taking it. We will communicate with her and resume treatment. 03/03/2025 Hyperlipidemia, unspecified hyperlipidemia type (ICD-10 - E78.5) Her lipids are currently stable and no change in her regimen is needed. 03/03/2025 Obesity (BMI 30.0-34.9) (ICD-10 - E66.9) Her body mass index is 32. We discussed diet and nutrition. We made a plan to lose weight at a rate of 1 pound per week through a diet restricted in fat calories and sodium combined with regular physical activity. 03/03/2025 Hypertension (ICD-10 - I10) Her blood pressure is somewhat higher than in the past. Be repeated when her thyroid function tests are normal eyes. 03/03/2025 Anemia, unspecified type (ICD-10 - D64.9) She has been continued on her iron supplements. 03/03/2025 Iron deficiency anemia due to chronic blood loss (ICD-10 - D50.0) She is no longer iron deficient. This will be monitored however. 03/03/2025 Malignant neoplasm o f unspecified site of left female breast (ICD-10 - C50.912) Both breasts were unremarkable except for scars. There is no sign of recurrent disease or new primary. 03/03/2025 Estrogen receptor positive status [ER+] (ICD-10 - Z17.0) She is a candidate for adjuvant endocrine therapy. 03/03/2025 Abnormal liver function tests (ICD-10 - R79.89) Her alkaline phosphatase is increased to 199 with mild elevation of the SGOT and SSGPT. Her bilirubin is normal. Review of older value shows she has been normal in the past but slightly abnormal increasingly for the last 18 months. This will be evaluated. Plan Of Treatment Medication Medication Name Sig Start Date Stop Date Notes Levothyroxine Sodium 112 MCG TAKE 1 TABL ET BY MOUTH EVERY DAY IN THE MORNING FOR 90 DAYS Anastrozole 1 MG Oral Pending Test Test Name Order Date PROFILE, RANDOM (COMPREHENSIVE METABOLIC ) 03/03/2025 TSH (THYROID STIMULATING HORMONE) 2024 CBC w DIFF 03/03/2025 SED RATE (ESR) 03/03/2025 Next Appt Details Follow Up: 2 - 3 Days, Reaso n: Telehealth Provider Name:Clem Ahn , 04/01/2025 10:15:00 AM, [address] [place] [address] [place], [address], Provider Name:Clem Ahn , 05/05/2025 04:00:00 PM, [address] [place] [address] [place], [address], Provider Name:Clem Ahn , 01/04/2026 04:00:00 PM, [address] [place] [address] [place], [address], Progress Notes * ANGELA HASSANDOB:[birth year] (55 yo F)Acc No.[id number]:03/03/2025 Progress Notes Patient: ANGELA MAYFIELD Provider: Solo Ahn MD :1970 A ge:55 Y S ex:Female Date:03/03/2025 Address: [address] , [id number] Subjective: * Chief Complaints: * F eeling unwellDizzinessRecent fever of 102HypothyroidismHyperlipidemiaObesityLeft breast cancerHypertension * HPI: C OVID-19 Screening: S he comes to the office for a same day visit with nonspecific feelings of illness. About a week ago, she began to feel dizzy and had vertigo and headaches. This occurred all last week. 48 hours ago, she noted a fever of 102 degree(s) , which lasted about 12 hours. She did not have congestion, or sore throat, or rash. She has had no tach bites. Today she feels dizzy and has a headache. She clearly has positional vertigo, primarily with bending forward. Her temperature with a thermometer gone was 98 degree(s) , which is slightly elevated. Her examination was normal. Her lungs were clear and her heart rate was normal. There was no rash. Conference blood work was ordered to further evaluate the symptoms. Her blood work was done on a stat basis and return showing mild elevations of her SGOT and SGPT and alkaline phosphatase as well as a TSH of 15.She appears to be stable. Questions H ave you had any new onset fever, chills, cough, congestion, sore throat, shortness of breath, muscle aches? N o * ROS: G eneral/Constitutional: pain o nly [...] enies. S ciatica d enies. W eakness d enies. S kin: Itching d enies. R chaka d enies. S kin lesion(s)?denies. N eurologic: Difficulty speaking d enies. D izziness P revious 7 days. H eadache P revious 7 days. L ow back pain d enies. P [...] dditional Findings: Tobacco non-user A ggressive nonsmoker S he has been to Gomez for many years. She works at [employer] and in [place], [place]. They have several children who are [...] H t: 63, Wt: 181, BMI:32.06, BP: 139/78, HR: 96, RR: 16, Temp: 98.3, Wt-k.1. * P ast Orders: Lab:Complete Blood Count Aut o Diff * Collection Date 03/03/2025 12/26/2024 06/30/2024 Collection Time 11:37 AM 07:36 AM 07:48 AM Order Date 03/03/2025 12/26/2024 06/30/2024 White Blood Count 5.2 (Ref Range: 4.8-10.8 X10*3/uL) 5.5 (Ref Range: 4.8-10.8 X10*3/uL) 6.2 (Ref Range: 4.8-10.8 X10*3/uL) Red Blood Count 5.12 (Ref Range: 4.20-5.50 X10*6/uL) 5.01 (Ref Range: 4.20-5.50 X10*6/uL) 5.17 (Ref Range: 4.20-5.50 X10*6/uL) Hemoglobin 14.8 (Ref Range: 12.0-16.0 g/dl) 14.5 (Ref Range: 12.0-16.0 g/dl) 15.2 (Ref Range: 12.0-16.0 g/dl) Hematocrit 42.2 (Ref Range: 37.0-47.0 %) 42.7 (Ref Range: 37.0-47.0 %) 44.3 (Ref Range: 37.0-47.0 %) Mean Corpuscular Volume 82.4 (Ref Range: 80.0-98.0 fL) 85.2 (Ref Range: 80.0-98.0 fL) 85.7 (Ref Range: 80.0-98.0 fL) Mean Corpuscular Hemoglobin 28.9 (Ref Range: 27.0-33.0 pg) 28.9 (Ref Range: 27.0-33.0 pg) 29.4 (Ref Range: 27.0-33.0 pg) Mean Corpuscular HGB Conc 35.1 H (Ref Range: 31.0-35.0 g/dl) 34.0 (Ref Range: 31.0-35.0 g/dl) 34.3 (Ref Range: 31.0-35.0 g/dl) Red Cell Distribution Width 12.7 (Ref Range: 11.0-16.0 %) 12.3 (Ref Range: 11.0-16.0 %) 12.0 (Ref Range: 11.0-16.0 %) Platelet Count 123 L (Ref Range: 160-400 X10*3/uL) 248 (Ref Range: 160-400 X10*3/uL) 274 (Ref Range: 160-400 X10*3/uL) Mean Platelet Volume 11.1 (Ref Range: 9.4-12.3 fL) 9.9 (Ref Range: 9.4-12.3 fL) 9.3 L (Ref Range: 9.4-12.3 fL) Neutrophils Percent Auto 60.7 (Ref Range: 45-73 %) 56.6 (Ref Range: 45-73 %) 45.6 (Ref Range: 45-73 %) Imm Gran Pct Auto 1.0 H (Ref Range: 0.0-0.4 %) 0.5 H (Ref Range: 0.0-0.4 %) 0.5 H (Ref Range: 0.0-0.4 %) Lymphocytes Percent Auto 22.7 (Ref Range: 20-40 %) 26.9 (Ref Range: 20-40 %) 28.5 (Ref Range: 20-40 %) Monocytes Percent Auto 13.6 H (Ref Range: 2-11 %) 9.5 (Ref Range: 2-11 %) 11.0 (Ref Range: 2-11 %) Eosinophils Percent Auto 0.8 (Ref Range: 0-4 %) 4.9 H (Ref Range: 0-4 %) 12.9 H (Ref Range: 0-4 %) Basophils Percent Auto 1.2 (Ref Range: 0-2 %) 1.6 (Ref Range: 0-2 %) 1.5 (Ref Range: 0-2 %) NRBC Pct Auto 0.0 (Ref Range: 0.0-0.2 /100WBC) 0.0 (Ref Range: 0.0-0.2 /100WBC) 0.0 (Ref Range: 0.0-0.2 /100WBC) Neutrophils Absolute Auto 3.1 (Ref Range: 2.0-8.3 x10*3/uL) 3.1 (Ref Range: 2.0-8.3 x10*3/uL) 2.8 (Ref Range: 2.0-8.3 x10*3/uL) Imm Gran Abs Auto 0.05 H (Ref Range: 0.00-0.03 X10*3/uL) 0.03 (Ref Range: 0.00-0.03 X10*3/uL) 0.03 (Ref Range: 0.00-0.03 X10*3/uL) Lymphocytes Absolute Auto 1.2 (Ref Range: 1.2-4.9 X10*3/uL) 1.5 (Ref Range: 1.2-4.9 X10*3/uL) 1.8 (Ref Range: 1.2-4.9 X10*3/uL) Monocytes Absolute Auto 0.7 (Ref Range: 0.1-1.2 X10*3/uL) 0.5 (Ref Range: 0.1-1.2 X10*3/uL) 0.7 (Ref Range: 0.1-1.2 X10*3/uL) Eosinophils Absolute Auto 0.0 (Ref Range: 0.0-0.4 X10*3/uL) 0.3 (Ref Range: 0.0-0.4 X10*3/uL) 0.8 H (Ref Range: 0.0-0.4 X10*3/uL) Basophils Absolute Auto 0.1 (Ref Range: 0.0-0.2 X10*3/uL) 0.1 (Ref Range: 0.0-0.2 X10*3/uL) 0.1 (Ref Range: 0.0-0.2 X10*3/uL) NRBC Abs Auto 0.000 (Ref Range: 0.0-0.012 X10*3/uL) 0.000 (Ref Range: 0.0-0.012 X10*3/uL) 0.000 (Ref Range: 0.0-0.012 X10*3/uL) * Lab:[facility] * Collection Date 12/26/2024 06/30/2024 12/21/2023 [...] Lab:Free T4 (Free Thyroxine) * Collection Date 03/03/2025 12/26/2024 06/30/2024 Collection Time 11:37 AM 07:36 AM 07:48 AM Order Date 03/03/2025 12/26/2024 06/30/2024 Free T4 (Free Thyroxine) 0.87 (Ref Range: 0.71-1.85 ng/dL) 1.17 (Ref Range: 0.71-1.85 ng/dL) 1.31 (Ref Range: 0.71-1.85 ng/dL) Clinical Info: PLEASE FAX COMPLETED RESULTS TO [phone] * Lab:Thyroid Stimulating Horm one * Collection Date 03/03/2025 12/26/2024 06/30/2024 Collection Time 11:37 AM 07:36 AM 07:48 AM Order Date 03/03/2025 12/26/2024 06/30/2024 Thyroid Stimulating Hormone 15.13 H (Ref Range: 0.32-4.0 uIU/mL) 0.86 (Ref Range: 0.32-4.0 uIU/mL) 0.13 L (Ref Range: 0.32-4.0 uIU/mL) ???Lab:Erythrocyte Sedimentation Rate (Order Date - 03/03/2025) (Collection Date & Time - 03/03/2025 11:37 AM)?ValueReference Range?Erythrocyte Sedimentation [id number] - MM/HR * Lab:Comprehensive Met. Panel * Collection Date 03/03/2025 11/30/2020 Collection Time 11:37 AM 07:50 AM Order Date 03/03/2025 11/30/2020 Sodium 134 L (Ref Range: 135-145 mmol/L) 141 (Ref Range: 135-145 mmol/L) Bilirubin Total 1.7 H (Ref Range: 0.0-1.0 mg/dL) 0.9 (Ref Range: 0.0-1.0 mg/dL) Aspartate Amino Transferase 84 H (Ref Range: 5-31 U/L) 28 (Ref Range: 5-31 U/L) Alanine Aminotransferase 77 H (Ref Range: 0-31 U/L) 31 (Ref Range: 0-31 U/L) Total Protein 7.8 (Ref Range: 6.5-8.0 g/dL) 7.1 (Ref Range: 6.5-8.0 g/dL) Albumin Level 4.5 (Ref Range: 3.5-5.0 g/dL) 4.1 (Ref Range: 3.5-5.0 g/dL) Alkaline Phosphatase 199 H (Ref Range: 39-117 U/L) 86 (Ref Range: 39-117 U/L) Potassium 3.6 (Ref Range: 3.3-5.1 mmol/L) 5.0 (Ref Range: 3.3-5.1 mmol/L) Chloride 101 (Ref Range: 96-108 mmol/L) 106 (Ref Range: 96-108 mmol/L) Carbon Dioxide 23 (Ref Range: 22-29 mmol/L) 27 (Ref Range: 22-29 mmol/L) Anion Gap 14 (Ref Range: 12-20) 13 (Ref Range: 12-20) Blood Urea Nitrogen 14 (Ref Range: 9-16 mg/dL) 15 (Ref Range: 9-16 mg/dL) Creatinine 0.98 (Ref Range: 0.5-1.4 mg/dL) 0.86 (Ref Range: 0.5-1.4 mg/dL) Estimated Glomerular Filt Rate 59 > 60 Glucose Random 95 (Ref Range: 60-115 mg/dL) 110 (Ref Range: 60-115 mg/dL) Calcium 9.6 (Ref Range: 8.4-10.2 mg/dL) 9.7 (Ref Range: 8.4-10.2 mg/dL) ???Lab:SLIDE REVIEW (Order Date - 03/03/2025) (Collection Date & Time - 03/03/2025 11:37 AM)?ValueReference Range?SLIDE REVIEWVERIFIED- * Examination: G eneral Examination: GENERAL APPEARANCE: [...] normal upper and lower extremities, sensory exam intact, Unremarkaable for the age ambulation without difficulty. PSYCH: a lert, oriented: thought process logical, goal directed: speech clear: good eye contact: cooperative with exam: alert, oriented. Assessment: * Assessment: 1. A cquired hypothyroidism - E03.9 (Primary) N otes :It appears that she has run out of refills for her thyroid medicatioon and has not been taking it.? We will communicate with her and resume treatment. 2 . H yperlipidemia, unspecified hyperlipidemia type - E78.5 N otes :Her lipids are currently stable and no change in her regimen is needed. 3 . O besity (BMI 30.0-34.9) - E66.9 N otes :Her body mass index is 32. We discussed diet and nutrition. We made a plan to lose weight at a rate of 1 pound per week through a diet restricted in fat calories and sodium combined with regular physical activity. 4 . H ypertension - I10 N otes :Her blood pressure is somewhat higher than in the past. Be repeated when her thyroid function tests are normal eyes. 5 . A nemia, unspecified type - D64.9 N otes :She has been continued on her iron supplements. 6 . I li deficiency anemia due to chronic blood loss - D50.0 N otes :She is no longer iron deficient. This will be monitored however. 7 . M alignant neoplasm of unspecified site of left female breast - C50.912? Notes :Both breasts were unremarkable except for scars. There is no sign of recurrent disease or new primary. 8 . E strogen receptor positive status [ER+] - Z17.0 N otes :She is a candidate for adjuvant endocrine therapy. 9 . A bnormal liver function tests - R79.89 N otes :Her alkaline phosphatase is increased to 199 with mild elevation of the SGOT and SSGPT. Her bilirubin is normal. Review of older value shows she has been normal in the past but slightly abnormal increasingly for the last 18 months. This will be evaluated. Plan: * Treatment: Value Reference Range F ree T4 (Free Thyroxine) 0.87 0.71-1.85 - ng/d L 2.?Hyperlipidemia, unspecified hyperlipidemia type?LAB: PROFILE, RANDOM (COMPREHENSIVE METABOLIC) ?LAB: TSH (THYROID STIMULATING HORMONE) ?LAB: CBC w DIFF ?LAB: SED RATE (ESR) ?LAB: Free T4 (Free Thyroxine) (Collection Date & Time - 03/03/2025 11:37 AM)* Value Reference Range F ree T4 (Free Thyroxine) 0.87 0.71-1.85 - ng/d L 3.?Obesity (BMI 30.0-34.9)?LAB: PROFILE, RANDOM (COMPREHENSIVE METABOLIC) ?LAB: TSH (THYROID STIMULATING HORMONE) ?LAB: CBC w DIFF ?LAB: SED RATE (ESR) ?LAB: Free T4 (Free Thyroxine) (Collection Date & Time - 03/03/2025 11:37 AM)* Value Reference Range F ree T4 (Free Thyroxine) 0.87 0.71-1.85 - ng/d L 4.?Hypertension?LAB: PROFILE, RANDOM (COMPREHENSIVE METABOLIC) ?LAB: TSH (THYROID STIMULATING HORMONE) ?LAB: CBC w DIFF ?LAB: SED RATE (ESR) ?LAB: Free T4 (Free Thyroxine) (Collection Date & Time - 03/03/2025 11:37 AM)* Value Reference Range F ree T4 (Free Thyroxine) 0.87 0.71-1.85 - ng/d L 5.?Others? Continue Levothyroxine Sodium Tablet, 112 MCG, TAKE 1 TABLET BY MOUTH EVERY DAY IN THE MORNING FOR 90 DAYS.?? * Procedure Codes: * Preventive Medicine: Counseling: C are goal follow-up plan: Counseling for abnormal BMI given Y es Above Normal BMI Follow-up D ietary management education, guidance, and counseling, Dietary needs education * Follow Up: 2 - 3 Days (Reason: Telehealth) * Images: * Sign off status: Completed true * Provider: Solo Ahn MD Date: Generated for Printi ng/Fazurig/eTransmitting on: 05/25/2024 07:18 AM EST History and [...] normal upper and lower extremities, sensory exam intact, Unremarkaable for the age ambulation without difficulty SKIN: no suspicious lesion s, anicteric PERIPHERAL PULSES: normal BREASTS: Not examined MUSCULOSKELETAL: extremities unremark able, no clubbing, cyanosis or edema LYMPH NODES: no enlarged lymph no alex,spleen normal RECTAL EXAM: not examined PSYCH: alert, oriented: tho ught process logical, goal directed: speech clear: good eye contact: cooperative with exam: alert, oriented ORAL CAVITY: normal, unremarkable
--- OUTSIDE RECORDS SUMMARY | 2025-03-04 08:57 | XMS_ITS ---
Author Organization Clem Ahn III, MD Address [address] [place] [address] Care Team Providers Care Farm Machinery Assembler Name Role Phone Dr. Clem Ahn III Primary Care Provider [phone] Medications Medication SIG (Take, Route, Frequency, Duration) Notes Start Date End Date Status Levothyroxine Sodium 100 MCG 1 tablet Or ally Once a day for 90 days 03/04/2025 Active Social History Sex Assigned At : Social History Observation Description Sex Assigned At Female Encounters Encounter Location Date Provider Diagnosis Clem Ahn III, MD [address] [place] [address] [place] [address] 03/04/2025 Clem Ahn Plan Of Treatment Medication Medication Name Sig Start Date Stop Date Notes Levothyroxine Sodium 100 MCG 1 tablet Or ally Once a day for 90 days 03/04/2025 Next Appt Details Provider Name:Clem Ahn , 04/01/2025 10:15:00 AM, [address] [place] [address] [place], [address], Provider Name:Clem Ahn , 05/05/2025 04:00:00 PM, [address] [place] [address] [place], [address], Provider Name:Clem Ahn , 01/04/2026 04:00:00 PM, [address] [place] [address] [place], [address], Progress Notes * ANGELA HASSAN JDOB:[birth year] (55 yo F)Acc No.[id number]:03/04/2025 Patient: ANGELA MAYFIELD :1970 A ge:55 Y S ex:Female Address:[address] [place] [phone] * Refills Start Levothyroxine Sodium Tablet, 100 MCG, Orally, 90 Tablet, 1 tablet, Once a day, 90 days, Refills=3 * true * Date: Generated for Manuel rasheed/Mojgan/Claudineitting on: 05/25/2024 07:18 AM EST
--- OUTSIDE RECORDS SUMMARY | 2025-03-04 09:03 | XMS_ITS ---
Author Organization Clem Ahn III, MD Address [address] [place] [address] Care Team Providers Care Patient Care Technician Name Role Phone Dr. Clem Ahn III Primary Care Provider REASON FOR VISIT Lab order Social History Sex Assigned At : Social History Observation Description Sex Assigned At Female Encounters Encounter Location Date Provider Diagnosis Clem Ahn III, MD [address] [place] [address] [place] [address] 03/04/2025 Clem Ahn Acquired hypothyroid ism E03.9 ; Hyperlipidemia, unspecified hyperlipidemia type E78.5 ; Anemia, unspecified type D64.9 and Abnormal liver function tests R79.89 Assessments Encounter Date Diagnosis (ICD Code) Assessment Notes Treat ment Notes Treatment Clinical Notes 03/04/2025 Acquired hypothyroidism (ICD-10 - E03.9) 03/04/2025 Hyperlipidemia, unspecified hyperlipidemia type (ICD-10 - E78.5) 03/04/2025 Anemia, unspecified type (ICD-10 - D64.9) 03/04/2025 Abnormal liver function tests (ICD-10 - R79.89) Plan Of Treatment Pending Test Test Name Order Date PROFILE, RANDOM (COMPREHENSIVE METABOLIC ) 03/04/2025 GGT 03/04/2025 TSH (THYROID STIMULATING HORMONE) 2024 CBC w DIFF 03/04/2025 Free T4 (Free Thyroxine) 03/04/2025 Next Appt Details Provider Name:Clem Ahn , 04/01/2025 10:15:00 AM, [address] [place] [address] [place], [place], [address], Provider Name:Clem Ahn , 05/05/2025 04:00:00 PM, [address] [place] [address] [place], [place], [address], Provider Name:Clem Ahn , 01/04/2026 04:00:00 PM, [address] [place] [address] [place], [place], [phone], Progress Notes * ANGELA HASSAN JDOB:[birth year] (55 yo F)Acc No.[id number]:03/04/2025 Patient: ANGELA MAYFIELD :1970 A ge:55 Y S ex:Female Address:[address] [place] [phone] Subjective: * Chief Complaints: * L ab order * Medical History: * Surgical History: * Hospitalization/Major Diagno stic Procedure: * Medications: Objective: * Vitals: * Physical Examination: Assessment: * Assessment: 1. A cquired hypothyroidism - E03.9 2 . H yperlipidemia, unspecified hyperlipidemia type - E78.5 3 . A nemia, unspecified type - D64.9 4 .?Abnormal liver function tests - R79.89 Plan: * Treatment: 2. H yperlipidemia, unspecified hyperlipidemia type L AB: PROFILE, RANDOM (COMPREHENSIVE METABOLIC) L AB: GGT L AB: TSH (THYROID STIMULATING HORMONE) L AB: CBC w DIFF L AB: Free T4 (Free Thyroxine) 3. A nemia, unspecified type L AB: PROFILE, RANDOM (COMPREHENSIVE METABOLIC) L AB: GGT L AB: TSH (THYROID STIMULATING HORMONE) L AB: CBC w DIFF L AB: Free T4 (Free Thyroxine) 4. A bnormal liver function tests L AB: PROFILE, RANDOM (COMPREHENSIVE METABOLIC) L AB: GGT L AB: TSH (THYROID STIMULATING HORMONE) L AB: CBC w DIFF L AB: Free T4 (Free Thyroxine) * Procedure Codes: * true * Date: Generated for Printi ng/Faxing/eTransmitting on: 05/25/2024 07:17 AM EST
--- OUTSIDE RECORDS SUMMARY | 2025-03-06 12:30 | XMS_ITS ---
Author Organization Clem Ahn III, MD Address [address] [place] [address] Care Team Providers Care National Sales Director Name Role Phone Dr. Clem Ahn III Primary Care Provider REASON FOR VISIT Follow up Social History Sex Assigned At : Social History Observation Description Sex Assigned At Female Encounters Encounter Location Date Provider Diagnosis Clem Ahn III, MD [address] [place] [address] [address] [facility] [place] [address] 03/06/2025 Clem Ahn Plan Of Treatment Next Appt Details Provider Name:Clem Ahn , 04/01/2025 10:15:00 AM, [address] [place] [address] [place], [address], Provider Name:Clem Ahn , 05/05/2025 04:00:00 PM, [address] [place] [address] [place], [address], Provider Name:Clem Ahn , 01/04/2026 04:00:00 PM, [address] [place] [address] [place], [address], Progress Notes * ANGELA LERMADOB:[birth year] (55 yo F)Acc No.[id number]:03/06/2025 Patient: ANGELA MAYFIELD Provider: Solo Anh MD :1970 A ge:55 Y S ex:Female Date:03/06/2025 Address: [address] , [place], [place]-[phone] Subjective: * Chief Complaints: * 1 . [...] MD Date: Generated for Manuel rasheed/Mojgan/Claudineitting on: 05/25/2024 07:17 AM EST
--- OUTSIDE RECORDS SUMMARY | 2025-03-25 07:17 | XMS_ITS | Encounter Summary ---
Author Organization [facility] Address [facility] [address] [place] [address] Phone Care Team Providers Care Poultry Trimmer Name Role Phone Karan Lazaro MD Primary Care Provider Encounter Details Date Type Department Care Team (Latest Contact Info) Description 04/30/2019 Ancillary Orders Virtual Department [address] [place] [address] Nilesh Monet DC [address] [place] [address] Low back pain with sciatica, sciatica laterality [...] No other explanation for pain. POS - [id number] Narrative 04/30/2019 6:16 PM EST HISTORY: Lower [...] level. No other explanationfor pain. POS - [id number] Nilesh Monet DC IMG XR SPINE Final [...] unspecified documented in this encounter Care Teams Poultry Trimmer Relationship Specialty Start Date End Date Karan Lazaro MD PCP - General 04/30/19 documented as of this encounter Additional Source Comments The information contained in this document represents components of the legal health record. It is not the complete legal health record.[facility]
--- OUTSIDE RECORDS SUMMARY | 2025-03-25 07:17 | XMS_ITS | Patient Health Record ---
Author Organization Clem Ahn III, MD Address [address] [place] [address] Care Team Providers Care Admin Dir Name Role Phone Dr. Clem Ahn III Primary Care Provider [phone] Allergies Allergen (clinical drug ingredient) Drug/Non Drug Allergy documented on EMR Reaction Allergy Type Onset Date Status No Known Drug Allergy Unknown Drug Allergy Active No Known Food Allergy Unknown Drug Allergy Active Results Component Value Reference Range Notes Free T4 (Free Thyroxine) Reviewed date:03/04/2025 09:53:26 AM Interpretation: Performing Lab:[address] [address] Notes/Report: Free T4 (Free Thyroxine) 0.87 0.71-1.85 ng/dL Complete Blood Count Auto Di ff Reviewed date:07/06/2024 09:12:48 AM Interpretation: Performing Lab:[address] [address] Notes/Report: White Blood Count 6.2 4.8-10.8 X10*3/uL [...] NRBC Abs Auto 0.000 0.0-0.012 X10*3/uL Comprehensive [place]. Panel Fa st Reviewed date:07/06/2024 09:12:48 AM Interpretation: Performing Lab:[facility], [address] [place] [phone] Notes/Report: Sodium 143 135-145 mmol/L Potassium 4.1 [...] Ferritin Reviewed date:07/06/2024 09:12:48 AM Interpretation: Performing Lab:[facility], [address] [place] [phone] Notes/Report: Ferritin 199 10-250 ng/mL Lipid Panel Reviewed date:07/06/2024 09:12:48 AM Interpretation: Performing Lab:[facility], [address] [place] [phone] Notes/Report: Triglycerides 177 <150 mg/dL Desirable Triglyceride: [...] Thyroxine) Reviewed date:07/06/2024 09:12:48 AM Interpretation: Performing Lab:[address] [address] Notes/Report: Free T4 (Free Thyroxine) 1.31 0.71-1.85 ng/dL Thyroid Stimulating Hormone Reviewed date:07/06/2024 09:12:48 AM Interpretation: Performing Lab:[address] [address] Notes/Report: Thyroid Stimulating Hormone 0.13 0.32-4.0 uIU/mL TSH 3rd Generation ([facility]) Complete Blood Count Auto Di ff Reviewed date:12/29/2024 03:50:16 PM Interpretation: Performing Lab:[facility], [address] [place] [phone] Notes/Report: White Blood Count 5.5 4.8-10.8 X10*3/uL [...] NRBC Abs Auto 0.000 0.0-0.012 X10*3/uL Comprehensive [place]. Panel Fa st Reviewed date:12/29/2024 03:50:16 PM Interpretation: Performing Lab:[facility], [address] [place] [phone] Notes/Report: Sodium 140 135-145 mmol/L Potassium 4.4 [...] Panel Reviewed date:12/29/2024 03:50:16 PM Interpretation: Performing Lab:[address] [phone] Notes/Report: Triglycerides 130 <150 mg/dL Desirable Triglyceride: [...] Thyroxine) Reviewed date:12/29/2024 03:50:16 PM Interpretation: Performing Lab:[address] [address] Notes/Report: Free T4 (Free Thyroxine) 1.17 0.71-1.85 ng/dL Thyroid Stimulating Hormone Reviewed date:12/29/2024 03:50:16 PM Interpretation: Performing Lab:[address] [address] Notes/Report: Thyroid Stimulating Hormone 0.86 0.32-4.0 uIU/mL TSH 3rd Generation ([facility]) Complete Blood Count Auto Di ff Reviewed date:03/04/2025 09:53:26 AM Interpretation: Performing Lab:[facility], [address] [place] [phone] Notes/Report: White Blood Count 5.2 4.8-10.8 X10*3/uL [...] X10*3/uL NRBC Abs Auto 0.000 0.0-0.012 X10*3/uL C ORRECTED REPORT C ORRECTED REPORT Erythrocyte Sedimentation Ra te Reviewed date:03/04/2025 09:53:26 AM Interpretation: Performing Lab:[facility], [address] [place] [phone] Notes/Report: Erythrocyte Sedimentation Rate 14 0-20 MM/HR Patients with polycythemia and many hemoglobin abnormalities may have depressed sed rates whereas patients with anemia may have elevated sed rates. Comprehensive Met. Panel Reviewed date:03/04/2025 09:53:26 AM Interpretation: Performing Lab:[address] [address] Notes/Report: Sodium 134 135-145 mmol/L Potassium 3.6 [...] Hormone Reviewed date:03/04/2025 09:53:26 AM Interpretation: Performing Lab:[facility], [address] [place] [phone] Notes/Report: Thyroid Stimulating Hormone 15.13 0.32-4.0 uIU/mL Note: A sustained TSH level above 2.5 uIU/mL may warrant further investigation. TSH 3rd Generation ([facility]) SLIDE REVIEW Reviewed date:03/04/2025 09:53:26 AM Interpretation: Performing Lab:[facility], [address] [place] [phone] Notes/Report: SLIDE REVIEW VERIFIED MM tomosynthesis screening B I Reviewed date:03/15/2025 07:38:21 AM Interpretation: Performing Lab: Notes/Report: [address] [place] [id number] Mammography Report Signed Patient: Kristen Hassan MR#: [id number] : 1970 Acct:[id number] Age/Sex: 55 / F ADM Date: 03/11/25 Loc: [facility] Attending Dr: Clem Ahn MD Ordering Physician: Clem Ahn MD Results: 2Benign Date of Service: 03/11/25 Follow Up: 1 Year From [facility] ina Mammogram Procedure(s): MM tomosynthesis screening BI Accession Number(s): [id number] cc: Clem Ahn MD Reason For Exam: SCREENING EXAMINATION: MM SCREENING DIGITAL BREAST TOMOSYNTHESIS, BILATERAL CLINICAL INFORMATION: Screening. Asymptomatic. History of left breast cancer post lumpectomy 2019. COMPARISON: Mammography: Comparison is made with available priors TECHNIQUE: Digital breast mammography with tomosynthesis is performed in both the craniocaudal and mediolateral oblique views along with computer-aided detection (CAD). FINDINGS: There are scattered areas of fibroglandular density. Left breast post lumpectomy changes are stable. There are no significant masses, abnormal calcifications, or other abnormalities. MM/MM tomosynthesis screening BI IMPRESSION: No mammographic evidence of malignancy. ASSESSMENT: BI-RADS Category 2: Benign RECOMMENDATION: Routine annual mammography screening. 1 year F/U This examination should not preclude the clinical evaluation of a suspicious palpable abnormality. This patient's information was entered into a reminder system with a target due date for their next mammogram. Electronically signed by: Rylie Olguin DO 03/11/2025 11:20 AM EDT Dictated By: Rylie Olguin DO Signed By: <Electronically signed by Rylie Olguin DO in OV> 03/11/25 1120 DD/ 0845 TD/TT: 03/11/25 0900 Can Washer: [facility] [address] [place] [address] Mammography Report Signed Patient: Doris Hassan MR#: [id number] 483 : 1970 Acct:[id number] Age/Sex: 55 / F ADM Date: 03/11/25 Loc: [facility] Attending Dr: Clem Ahn MD Ordering Physician: Clem Ahn MD Results: 2Benign Date of Service: 03/11/25 Follow Up: 1 Year From Orig inal Mammogram Procedure(s): MM tomosynthesis screening BI Accession Number(s): [id number] cc: Clem Ahn MD Reason For Exam: SCREENING EXAMINATION: MM SCREENING DIGITAL BREAST TOMOSYNTHESIS, BILATERAL CLINICAL INFORMATION: Screening. Asymptomatic. History of left breast cancer post lumpectomy 2019. COMPARISON: Mammography: Compari son is made with available priors TECHNIQUE: Digital breast mammography with tomosynthesis is performed in both the craniocaudal and mediolateral oblique views along with computer-aided detection (CAD). FINDINGS: There are scattered areas of fibroglandular density. Left breast post lumpectomy changes are stable. There are no significant masses, abnormal calcifications, or other abnormalities. MM/MM tomosynthesis screening BI IMPRESSION: No mammographic evidence of malignancy. ASSESSMENT: BI-RADS Category 2: Benign RECOMMENDATION: Routine annual mammography screening. 1 year F/U This examination paloma uld not preclude the clinical evaluation of a suspicious palpable abnormality. This patient's information was entered into a reminder system with a target due date for their next mammogram. Electronically see d by: Rylie Olguin DO 03/11/2025 11:20 AM EDT Dictated By: Rylie Olguin DO Signed By: <Electronically signed by Rylie Olguin DO in OV> 03/11/25 1120 DD/ 0845 TD/TT: 03/11/25 0900 Can Washer: Reason For Referral Reason right shoulder pain Diagnosis 1 Acute pain of right shoulder (M25.511) Referral Organization Clem Ahn III, MD Referring Provider First Name Clem Referring Provider Last Name Anabelle Referring Provider Speciality Internal M edicine Referred Provider [facility], Orthopedic Surgeons Referred Provider Specialty Orthopedic S urgery General Notes Leighann Michaud PRICILA 07/14 11:11:30 AM > Called pt she [...] 10:48:47 AM > Referral and progress note famitra Leighann Michaud PRICILA 2025 10:06:58 AM >Emperatriz from Dr Fuller [...] Active Anastrozole 1 MG Oral Act brandi Levothyroxine Sodium 100 MCG 1 tablet Or ally Once a day for 90 days Active Immunizations Vaccine Route Administration Date Status Comme [...] Problem Status W/U Status Risk Notes Problem 104566719280191 Obesity (BMI 30.0-34.9) (E66.9) Active confirmed Her body mass index is 32. We discussed diet and nutrition. We made a plan to lose weight at a rate of 1 pound per week through a diet restricted in fat calories and sodium combined with regular physical activity. Problem Hypertension (71499213) Hypertension (I10) Active confirmed Her blood pressure is somewhat higher than in the past. Be repeated when her thyroid function tests are normal eyes. Problem 991813664 Malignant neoplasm of unspecified site of left female breast (C50.912) Active confirmed Both breast s were unremarkable except for scars. There is no sign of recurrent disease or new primary. Problem 444418326172634 Lumbago with sciatica, right side (M54.41) Active confirmed She will continue with conservative therapy. She is improving rapidly with rest heat and ibuprofen. Problem 216371361 Lumbago with sciatica, left side (M54.42) Active confirmed She will continue conservative therapy as she is improving rapidly. 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 Problem 411885578 Acquired hypothyroidism (E03.9) Active confirmed It appears that she has run out of refills for her thyroid medicatioon and has not been taking it. We will communicate with her and resume treatment. Problem 010246637 Iron deficiency anemia due to chronic blood loss (D50.0) Active confirmed She is no longer iron deficient. This will be monitored however. Problem 594037346 Anemia, unspecified type (D64.9) Active confirmed She has been continued on her iron supplements. Problem 57714926 Hyperlipidemia, unspecified hyperlipidemia type (E78.5) Active confirmed Her lipids are currently stable and no change in her regimen is needed. Problem 169784930 Abnormal liver function tests (R79.89) Active confirmed Her alkaline phosphatase is increased to 199 with mild elevation of the SGOT and SSGPT. Her bilirubin is normal. Review of older value shows she has been normal in the past but slightly abnormal increasingly for the last 18 months. This will be evaluated. Problem 9305275991 Acute pain of right shoulder (M25.511) Active [...] Date Provider Diagnosis Clem Ahn III, MD [address] [place] [address] [place] [address] 07/07/2024 Clem Ahn Acquired hypothyroid ism E03.9 ; Acute pain of right shoulder M25.511 ; Hyperlipidemia, unspecified hyperlipidemia type E78.5 and Iron deficiency anemia due to chronic blood loss D50.0 Clem hAn III, MD [address] [place] [address] [place] [address] 12/30/2024 Clem Ahn Acquired hypothyroid ism E03.9 ; Obesity (BMI 30.0-34.9) E66.9 ; Hyperlipidemia, unspecified hyperlipidemia type E78.5 ; Anemia, unspecified type D64.9 ; Malignant neoplasm of unspecified site of left female breast C50.912 ; Breast screening Z12.31 and Hypertension I10 Clem Ahn III, MD [address] [place] [address] [place] [address] 03/03/2025 Clem Ahn Acquired hypothyroid ism E03.9 [...] function tests R79.89 Clem Ahn III, MD [address] [place] [address] [place] [address] 07/14/2024 Clem Ahn III, MD [address] [place] [address] [place] [address] 03/04/2025 Clem Ahn III, MD [address] [place] [address] [place] [address] 03/04/2025 Clem Ahn Acquired hypothyroid ism E03.9 [...] Her blood pressure is in the normal devlni. She has been compliant with her medications. [...] STIMULATING HORMONE) 2024 TSH (THYROID STIMULATING HORMONE) 2022 TSH (THYROID [...] CBC w DIFF 09/15/2021 CBC w DIFF 03/04/2025 CBC w DIFF 03/17/2021 CBC w DIFF 02/11/2020 CBC w DIFF [...] Name:Clem Ahn , 04/01/2025 10:15:00 AM, [address] [place], [place], [address], Provider Name:Clem Ahn , 05/05/2025 04:00:00 PM, [address] [place], [place], [address], Provider Name:Clem Ahn , 01/04/2026 04:00:00 PM, [address], [place], [address], Insurance Providers Payer Name Payer Address Payer Phone Subscriber Number Group Number Insured Name Patient Relationship to Insured Coverage Start Date Coverage End Date [employer] [address] [address] [place] [address] [id number] KRISTEN HASSAN Self - patient is the insured 2024 Medical (General) History Medical History History ICD Code Hypothyroidism, unspecified type E03.9 Hyperlipidemia, unspecified hyperlipidem ia type E78.5 cellulitis left leg July 2017 tick bite July 2017 posterior left thig h overweight, BMI 29 miscarriage 2004 anemia November 2017 septate uterus 2003. By ultrasound benign lesion left eyelid mucous cyst finger [id number] ER, 9 mm, triple po sitive, node-negative, [...]
--- OUTSIDE RECORDS SUMMARY | 2025-03-25 07:17 | XMS_ITS | Encounter Summary ---
Author Organization [facility] Address [facility] [address] [address] Phone Care Team Providers Care Peanut Separator Name Role Phone Karan Lazaro MD Primary Care Provider Encounter Details Date Type Department Care Team (Latest Contact Info) Description 04/30/2019 Transcribe Orders Virtual Department [address] [place] [address] Nilesh Monet DC [address] [place] [id number] Low back pain, unspecified back pain laterality, [...] limb documented in this encounter Care Teams Peanut Separator Relationship Specialty Start Date End Date Karan Lazaro MD PCP - General 04/30/19 documented as of this encounter Additional Source Comments The information contained in this document represents components of the legal health record. It is not the complete legal health record.[facility]
--- OUTSIDE RECORDS SUMMARY | 2025-03-25 07:17 | XMS_ITS | Clinical Summary ---
Author Organization [facility] Address [address] [place] [address] Care Team Providers Care Coconut Cooker Name Role Phone Clem Ahn MD Primary Care Provider [phone] Allergies No known active allergies Medications Medication [...] age to complete this topic Care Teams Coconut Cooker Relationship Specialty Start Date End Date Clem Ahn MD [facility] [address] [phone] PCP - General Oncology 04/15/20
--- OUTSIDE RECORDS SUMMARY | 2025-03-25 07:18 | XMS_ITS | Clinical Summary ---
Author Organization [facility] Address [facility] [employer] [address] [address] Phone Care Team Providers Care Art Department Head Name Role Phone Karan Lazaro MD Primary Care Provider [phone] Social History Tobacco Use Types Packs/Day Years [...] file Medical Devices Not on file [facility] PCP S[place] [place] [employer] NON NSPG PCP SILVER [employer] NON NSPG PCP SILVER [employer]ITY [employer] NON NSPG PCP SILVER [employer]ARITY CONNE[employer]ARE [employer] NON NSPG PCP SILVER [employer]ITY [employer] NON NSPG PCP SILVER [employer] NON NSPG PCP S[employer] Member Subscriber Plan / Payer (Ef fective 2019-Present) Name:Lenoflower Kristen Relation to Subscriber:Self Name:Lenoflower Kristen Payer ID:[id number] Type:HMO Address: [place] [id number] [employer] NON NSPG PCP DAVID [employer] NON NSPG PCP [employer] Care Teams Art Department Head Relationship Specialty Start Date End Date Karan Lazaro MD PCP - General 04/30/19 Additional Source Comments The information contained in this document represents components of the legal health record. It is not the complete legal health record.[facility]
--- OUTSIDE RECORDS SUMMARY | 2025-03-25 07:18 | XMS_ITS | Clinical Summary ---
Author Organization [facility] Address [address] [place] [address] Phone Care Team Providers Care Rehabilitation Services Manager Name Role Phone Clem Ahn MD Primary Care Provider [phone] Allergies No known active allergies Medications levothyroxine (SYNTHROID, LEVOTHROID) 112 mcg tablet Take 1 tablet (112 mcg total) by mouth every morning on an empty stomach. Active anastrozole (ARIMIDEX) 1 mg TAKE 1 TABLET BY MOUTH 1 TIME EACH DAY. 30 tablet 5 10/30/2024 Active Family History Medical History Relation Name Comments [...] Description 07/20/2025 8:45 AM EDT Office Visit [facility] Hematology Oncology [address] [place] [phone] Eduard Davis MD [address] [place] [address] Health Maintenance Due Date Last Done Comments [...] patient's age to complete this topic Insurance [facility] Care Teams Rehabilitation Services Manager Relationship Specialty Start Date End Date Clem Ahn MD [address] [place] [phone] PCP - General Oncology 04/15/20
[2025-03-25 07:25] LABS: MANUAL DIFF FLAG NO
[2025-03-25 08:04] LABS: Hematocrit 39.2 % (37.0-47.0); Hemoglobin 13.3 g/dl (12.0-16.0); Imm Gran Abs Auto 0.07 X10*3/uL (0.00-0.03); Imm Gran Pct Auto 1.3 % (0.0-0.4); Lymphocytes Absolute Auto 2.0 X10*3/uL (1.2-4.9); Mean Corpuscular HGB Conc 33.9 g/dl (31.0-35.0); Mean Corpuscular Hemoglobin 29.2 pg (27.0-33.0); Mean Corpuscular Volume 86.0 fL (80.0-98.0); NRBC Abs Auto 0.000 X10*3/uL (0.0-0.012); NRBC Pct Auto 0.0 /100WBC (0.0-0.2); Platelet Count 210 X10*3/uL (160-400); Red Blood Count 4.56 X10*6/uL (4.20-5.50); White Blood Count 5.4 X10*3/uL (4.8-10.8)
[2025-03-25 08:34] LABS: Alanine Aminotransferase 19 U/L (0-31); Albumin Level 4.1 g/dL (3.5-5.0); Alkaline Phosphatase 92 U/L (39-117); Anion Gap 11 (12-20); Aspartate Amino Transferase 31 U/L (5-31); Blood Urea Nitrogen 6 mg/dL (9-16); Calcium 9.1 mg/dL (8.4-10.2); Carbon Dioxide 23 mmol/L (22-29); Chloride 109 mmol/L (96-108); Estimated Glomerular Filt Rate > 60; Gamma Glutamyl Transpeptidase 21 U/L (7-33); Potassium 3.9 mmol/L (3.3-5.1); Sodium 139 mmol/L (135-145); Total Protein 7.2 g/dL (6.5-8.0)
[2025-03-25 08:49] LABS: Free T4 (Free Thyroxine) 1.31 ng/dL (0.71-1.85); Thyroid Stimulating Hormone 1.79 uIU/mL (0.32-4.0)
== END 2025-03-25 07:15 | disposition home or self-care (01) ==
LOC: HO.LAB 07:14
PROVIDERS: PCP Internal Medicine Medical Oncology; Visit Provider Internal Medicine Medical Oncology
DX: R79.89 Other specified abnormal findings of blood chemistry (principal); D64.9 Anemia, unspecified; E03.9 Hypothyroidism, unspecified; E78.5 Hyperlipidemia, unspecified
CPT/HCPCS: 36415; 80053; 82977; 84439; 84443; 85025